=== PATIENT | female | born 1950 | race Hispanic/Latino ===

== ENCOUNTER 2017-09-02 22:08 | Observation (INO) | payer MEDICARE ==
[2017-09-02] MEDS ORDERED: ONDANSETRON HCL MDV 20ML 2 MG/ML VIAL ONE (22:32)
[2017-09-02 22:36] LABS: BASOPHILS % (AUTO) 0.2 % (0.0-5.0); HEMATOCRIT 42.3 % (36-48); LYMPHOCYTES % (AUTO) 4.6 % (21.0-51.0); MEAN CORPUSCULAR HGB CONC 34.3 g/dL (32.0-36.0); MEAN CORPUSCULAR VOLUME 81.6 fL (79-99); MONOCYTES % (AUTO) 5.6 % (3.0-13.0); NEUTROPHILS % (AUTO) 89.6 % (40.0-77.0); PLATELET COUNT (AUTO) 300 K/uL (130-400); RED BLOOD CELL COUNT(AUTO) 5.19 MIL/uL (4.00-5.50); RED CELL DISTRIBUTION WIDTH 13.7 % (11.0-15.5); WHITE BLOOD COUNT (AUTO) 18.5 K/uL (4.8-10.8)
[2017-09-02 22:45] LABS: CREATININE 0.9 mg/dL (0.5-1.5); POTASSIUM 3.6 mmol/L (3.5-5.1)
[2017-09-02 22:49] LABS: ALBUMIN 3.9 g/dL (3.5-5.0)
[2017-09-03] MEDS ORDERED: ZOSYN 3.375GM+NS 50ML 50 ML IV ONE ×2 (00:33→07:18)
[2017-09-03] MEDS ORDERED: LACTATED RINGERS 1000ML 1,000 ML IV ONE (05:54)
[2017-09-03 06:08] LABS: BASOPHILS % (AUTO) 0.3 % (0.0-5.0); EOSINOPHILS % (AUTO) 0.1 % (0.0-8.0); HEMATOCRIT 33.9 % (36-48); LYMPHOCYTES % (AUTO) 8.5 % (21.0-51.0); MEAN CORPUSCULAR HEMOGLOBIN 28.1 pg (27.0-33.0); MEAN CORPUSCULAR HGB CONC 33.7 g/dL (32.0-36.0); MEAN CORPUSCULAR VOLUME 83.4 fL (79-99); NEUTROPHILS % (AUTO) 85.1 % (40.0-77.0); PLATELET COUNT (AUTO) 259 K/uL (130-400); RED BLOOD CELL COUNT(AUTO) 4.06 MIL/uL (4.00-5.50); WHITE BLOOD COUNT (AUTO) 12.3 K/uL (4.8-10.8)
[2017-09-03 06:36] LABS: ALBUMIN 2.8 g/dL (3.5-5.0); BILIRUBIN,TOTAL 0.9 mg/dL (0.2-1.0); TOTAL PROTEIN, SERUM 6.7 g/dL (6.0-8.3)
[2017-09-03 08:58] LABS: APPEARANCE,URINE Clear (CLEAR); BILIRUBIN,URINE Negative (NEGATIVE); COLOR,URINE Yellow (YELLOW); GLUCOSE, URINE (UA) Negative (NEGATIVE); KETONES,URINE Trace mg/dL (NEGATIVE); LEUKOCYTE ESTERASE ,URINE Negative (NEGATIVE); NITRATE,URINE Negative (NEGATIVE); OCCULT BLOOD,URINE Negative (NEGATIVE); PROTEIN,URINE Trace (NEGATIVE)
[2017-09-03 09:27] LABS: BACTERIA,URINE Rare /HPF (None Seen); SQUAMOUS EPITHELIAL CELL,UR Rare /HPF (0-2); WBC,URINE 0-1 /HPF (0-1)
== END 2017-09-03 08:57 | disposition left against medical advice (07) ==
LOC: EDH 22:08 → EDHIP 09-03 01:28
PROVIDERS: ADMIT Surgery; ATTEND Surgery
DX: R10.31 Right lower quadrant pain (principal); R11.10 Vomiting, unspecified; K21.9 Gastro-esophageal reflux disease without esophagitis
CPT/HCPCS: 36415 ×2; 74176; 80053 ×2; 81001; 83690; 85025 ×2; 87040 ×2; 87186; 99285; G0378 ×7; J2543 ×2; J7120

== ENCOUNTER 2023-09-19 15:41 | Emergency (ER) | payer MEDICARE ==
[~2023-09-19] VITALS: Ht 157.5 cm; Wt 47.6 kg
[~2023-09-19 15:41] MED LIST: LEVO750T68 PO; LISI1TAB49 PO; NAPR500T6 PO; OMEP20CA12 PO
[2023-09-19 16:43] LABS: BASOPHILS # (AUTO) 0.03 K/uL (0.00-0.20); BASOPHILS % (AUTO) 0.6 % (0.0-5.0); EOSINOPHILS % (AUTO) 4.2 % (0.0-8.0); HEMATOCRIT 36.7 % (36-48); IMMATURE GRANULOCYTE ABSOLUTE 0.01 K/uL (0-1); LYMPHOCYTES # (AUTO) 1.2 K/uL (1.0-4.8); LYMPHOCYTES % (AUTO) 25.1 % (21.0-51.0); MEAN CORPUSCULAR HEMOGLOBIN 27.9 pg (27.0-33.0); MEAN CORPUSCULAR HGB CONC 33.2 g/dL (32.0-36.0); MEAN CORPUSCULAR VOLUME 83.8 fL (79-99); MONOCYTES # (AUTO) 0.4 K/uL (0.1-1.0); MONOCYTES % (AUTO) 7.9 % (3.0-13.0); NEUTROPHILS # (AUTO) 2.9 K/uL (1.8-7.7); PLATELET COUNT (AUTO) 278 K/uL (130-400); RED BLOOD CELL COUNT(AUTO) 4.38 MIL/uL (4.00-5.50); RED CELL DISTRIBUTION WIDTH 13.8 % (11.0-15.5); WHITE BLOOD COUNT (AUTO) 4.7 K/uL (4.8-10.8)
[2023-09-19 16:51] LABS: CREATININE 0.5 mg/dL (0.5-1.0); POTASSIUM 3.3 mmol/L (3.5-5.1)
[2023-09-19 16:54] LABS: INR 0.97 (0.85-1.15); PROTHROMBIN TIME 10.5 SEC (9.6-11.6)
[2023-09-19 16:55] LABS: PARTIAL THROMBOPLASTIN TIME 28.5 SEC (26.3-35.5)
[2023-09-19 17:51] VITALS: BP 152/87; PULSE 97; RESP 18; O2SAT 98
[2023-09-19] MEDS: POTASSIUM BICARB/CIT AC 25 MEQ TABLET.EFF PO ONE (17:58)
== END 2023-09-19 18:04 | disposition home or self-care (01) ==
LOC: EDH 15:41
DX: M79.661 Pain in right lower leg (principal); E87.6 Hypokalemia; E86.0 Dehydration; R22.41 Localized swelling, mass and lump, right lower limb; I10 Essential (primary) hypertension; Z79.2 Long term (current) use of antibiotics; Z79.899 Other long term (current) drug therapy
CPT/HCPCS: 36415; 80048; 85025; 85610; 85730; 93971

== ENCOUNTER 2024-08-24 19:49 | Inpatient (IN) | payer OTHER, MEDICARE ==
[~2024-08-24] VITALS: Ht 157.5 cm; Wt 39.0 kg
[~2024-08-24 19:49] MED LIST changes: +NAPR-1506 PO; -NAPR500T6 PO
--- NOTE | 2024-08-24 20:08 | ERN ---
ED Note History of Present Illness Stated Complaint: DIFFUSE ABDOMINAL PAIN Chief Complaint: Abdominal Pain Time Seen by MD: 19:51 Dictation: This is a 74-year-old female with known history of cerebral palsy and hypertension was brought into the emergency room with complaints of diffuse abdominal pain. Patient is nonverbal and is unable to furnish much history other than nodding at times. This also mild abdominal distention. During similar presentation in the past she had constipation with no bowel movement for many days. In view of the abdominal distention her p.o. intake is lower and off and on Nausea reported. No vomitings hematemesis or melena. No fever chills or rigors. No chest pain pressure. Temperature 97.2 pulse 94 respirations 18 blood pressure 100/64 with a pulse oximetry of 98% on room air Patient has a known history of cerebral palsy with significant craniofacial abnormalities and protruding teeth, hypertension and apparently at baseline she is bed ridden with limb contractures. Allergies: Coded Allergies: No Known Allergies (Unverified Allergy, Unknown, 07/20/21) Home Meds Active Scripts Levofloxacin (Levaquin 750Mg Tabs) 750 Mg Tablet, 750 MG PO DAILY for 7 Days, #7 TAB 0 Refills Prov:ROJAS,NATALIO O SUPPORT DIRECTOR 07/26/21 Reported Medications Naproxen (Naproxen) 500 Mg Tablet.dr, 500 MG PO DAILY, TAB 07/21/21 Omeprazole (Omeprazole) 20 Mg Capsule.dr, 20 MG PO DAILY, CAP 07/21/21 Lisinopril/Hydrochlorothiazide (Lisinopril-Hctz 10-12.5 mg Tab) 1 Each Tablet, 1 EACH PO DAILY, TAB 07/21/21 Past Medical History Past Medical History: GERD, Hypertension Additional Past Medical Hx: CEREBRAL PALSY Surgical History: None Social History: Negative, Lives with family History: Not Applicable RN Note Reviewed/Agreed w/PFSH: Yes Review of System Dictation Constitutional: Negative for fever,chills, and weight loss Eyes: Negative for injury, pain,redness, and discharge ENT: Negative for injury,pain or swelling Cardiovascular: Negative for chest pain, palpitations, and edema Respiratory: Negative for shortness of breath, cough, and wheezing, Abdomen/GI: Positive for diffuse abdominal pain, nausea,and constipation no report of vomiting, diarrhea, Back: Negative for injury and pain : Negative for injury, bleeding and discharge MS/Extremity: Negative for injury and deformity Skin: Negative for rash, and discoloration Neuro: Negative for headache, weakness, numbness, tingling, and seizure Psych: Negative for suicide ideation, homicidal ideation, and hallucinations Initial Vital Sign VS Vital Signs Date Time Temp Pulse Resp B/P (MAP) Pulse Ox O2 Delivery O2 Flow Rate FiO2 08/24/24 19:50 97.2 94 18 100/64 98 Room Air 0 08/24/24 20:18 21 Physical Exam Dictation General: awake, alert, NAD extremely emaciated, malnourished with a temporal wasting sunken eyes Head/Face: Craniofacial abnormalities with protruding upper jaw and teeth, atraumatic Eyes: PERRL, EOMI, vision at baseline ENT: oral cavity clear, TMs clear, no signs of infection Neck: Trachea midline, supple, no nuchal rigidity Cardiovascular: RRR, normal S1/S2, No MRGs, no JVD Respiratory: CTAB, no respiratory distress, No rales or wheezes Abdomen: Soft, mildly-distended, tender to palpation normal bowel sounds, no guarding or rebound. Skin: Warm, dry, normal turgor, no rash MS/Extremity: Pulses equal, no cyanosis, neurovascular intact, FROM Neuro: Alert awake nodding appropriately but nonverbal and there is no family to furnish much history. And what her baseline is Psych: Normal behavior, mood, and affect normal Extremities-trace edema without any palpable cords, Homans sign is negative Results (Laboratory/Radiology) Laboratory/Radiology Laboratory Tests Test 08/24/24 20:17 White Blood Count 7.1 K/uL (4.8-10.8) Red Blood Count 4.50 MIL/uL (4.00-5.50) Hemoglobin 12.8 g/dL (12.0-16.0) Hematocrit 38.6 % (36-48) Mean Corpuscular Volume 85.8 fL (79-99) Mean Corpuscular Hemoglobin 28.4 pg (27.0-33.0) Mean Corpuscular Hemoglobin Concent 33.2 g/dL (32.0-36.0) Red Cell Distribution Width 12.5 % (11.0-15.5) Platelet Count 284 K/uL (130-400) Mean Platelet Volume 8.7 fL (7.5-10.5) Immature Granulocyte % (Auto) 0.6 % (0-1) Neutrophils (%) (Auto) 83.0 % (40.0-77.0) H Lymphocytes (%) (Auto) 12.4 % (21.0-51.0) L Monocytes (%) (Auto) 3.0 % (3.0-13.0) Eosinophils (%) (Auto) 0.7 % (0.0-8.0) Basophils (%) (Auto) 0.3 % (0.0-5.0) Neutrophils # (Auto) 5.9 K/uL (1.8-7.7) Lymphocytes # (Auto) 0.9 K/uL (1.0-4.8) L Monocytes # (Auto) 0.2 K/uL (0.1-1.0) Eosinophils # (Auto) 0.05 K/uL (0.00-0.70) Basophils # (Auto) 0.02 K/uL (0.00-0.20) Absolute Immature Granulocyte (auto 0.04 K/uL (0-1) Nucleated Red Blood Cells 0.0 % (0.0-0.19) Sodium Level 129 mmol/L (136-145) L Potassium Level 3.4 mmol/L (3.5-5.1) L Chloride Level 94 mmol/L (101-111) L Carbon Dioxide Level 26 mmol/L (21-32) Blood Urea Nitrogen 23 mg/dL (7-18) H Creatinine 0.7 mg/dL (0.5-1.0) Glomerular Filtration Rate Calc 92 mL/min (>90) Random Glucose 176 mg/dL (70-105) H Total Calcium 8.9 mg/dL (8.5-10.1) Total Creatine Kinase 37 U/L (21-232) # Lipase 49 U/L (16-77) Labs Reviewed?: Yes CT Scan Comment: REASON: abdominal distension and pain ORDERING PHYSICIAN: ROSE ROPER MD PROCEDURE: ABD PEL WO - CT ABDOMEN/PELVIS W/O CONTRAST CT ABDOMEN/PELVIS W/O CONTRAST INDICATION: abdominal distension and pain TECHNIQUE: CT ABDOMEN/PELVIS W/O CONTRAST. Oral contrast was not given. Coronal and sagittal reformats were performed. CT was performed with one or more of the following dose reduction techniques: Automated exposure control, adjustment of the mA and/or kV according to the patient's size, or use of the iterative reconstruction technique. Comparison: None. FINDINGS: The noncontrast nature this study limits evaluation of abdominal viscera. Mild atelectatic changes are seen in the lung bases. There is mild hepatic steatosis. Small hypodense foci seen in the liver, incompletely characterized. Consider correlation with nonemergent ultrasound. Gallbladder is not well visualized. A spleen is not well visualized. There is no acute findings in the pancreas. No hydronephrosis. The urinary bladder is partially collapsed. Prominent fecal material in the rectum concerning for fecal impaction. Fluid-filled loops of small bowel and colon which may may represent enterocolitis versus early obstruction. No free abdominal air is seen. Appendix is not clearly visualized limiting evaluation. Correlate clinically. Atherosclerotic changes of the aorta with calcified plaques. Degenerative changes of the spine are seen. Grade 2 anterolisthesis at L4-L5. IMPRESSION: 1. Prominent fecal material in the rectum concerning for fecal impaction. 2. Distended, Fluid-filled loops of small bowel and colon which may may represent enterocolitis versus early obstruction. DICTATED BY: ESTEFANIA CONTRERAS MD DATE: 08/24/242106 ELECTRONICALLY SIGNED BY: ESTEFANIA CONTRERAS MD DATE: 08/24/242111 ED Course ED Course Orders Procedure Category Date Status Time Cbc With Differential LAB 08/24/24 Complete 19:52 Urinalysis Profile LAB 08/24/24 Logged 19:52 Creatine Kinase, Total LAB 08/24/24 Complete 19:52 Lipase LAB 08/24/24 Complete 19:52 Basic Metabolic Panel LAB 08/24/24 Complete 19:52 Ct Abdomen/Pelvis W/O CT 08/24/24 Resulted Contrast 20:06 0.9%Nacl 1000ml (Ns PHA 08/24/24 In Process 1000ml) 20:30 Morphine 2mg Syg PHA 08/24/24 Complete (Morphine 2mg Syg) 20:30 Current Medications Medications (Trade) Dose Ordered Sig/Ricardo Route PRN Reason Start Time Stop Time Status Last Admin Dose Admin Morphine Sulfate (morPHINE 2MG SYG) 2 mg ONCE ONCE IVP 08/24/24 20:30 08/24/24 20:31 DC 08/24/24 20:32 Sodium Chloride 1,000 ml @ 125 mls/hr ONCE ONCE IV 08/24/24 20:30 08/25/24 04:29 08/24/24 20:16 Vital Signs Date Time Temp Pulse Resp B/P (MAP) Pulse Ox O2 Delivery O2 Flow Rate FiO2 08/24/24 20:18 96 17 102/45 96 Room Air* 0 21 08/24/24 19:50 97.2 94 18 100/64 98 Room Air 0 We will perform diagnostic labs, advanced imaging and administer medications according to the patient's complaint. Once the results are available, will review and personally interpreted the labs to rule out any acute life- threatening emergency the trach require immediate intervention and treatment. I will then re-evaluate the patient after treatment and diagnostic exams have return to determine whether the patient requires any further testing, can safely be discharged home or need further admission to hospital for additional treatment and evaluation. I reviewed labs CBC is with a normal limits BNP 7 is significant for sodium of 129 chloride 94 BUN and creatinine are 23 and 0.7 with a potassium of 3.4 glucose 176. I reviewed the CT abdomen and pelvis which shows extensive gaseous distention of small and large bowel and increased fecal burden and fecal impaction likely in rectum. I recommended admission to the hospital for further management including perhaps trial of enema or digital manual disimpaction and repleted lights. 9:45 p.m. patient accepted by ODETTE Velez for admission to the hospitalist group for further management Medical Decision Making MDM MDM: Differential diagnosis: Constipation, SBO, diverticulitis, perforation, Shefali syndrome, impactions Rationale: Tests considered and ordered secondary to shared decision making include: labs, ECG and radiology Previous outside records reviewed: Old ER visits. Risk of complication and/or morbidity or mortality of patient management: None Medications-Per medication reconciliation Need for hospitalization: Patient does meet criteria for hospitalization. Need for emergency major/minor surgery: No There are no social concerns with this patient. Prescription drug management Prescriptions will include symptomatic care Patient's prior external medical records from other ER visits were reviewed by me as indicated. Prior testing and results from previous visits were reviewed. Prior tests were taken into account with medical decision making and resource utilization, independent historian/historians were used to obtain complete medical history. I independently interpreted the test that were performed, results were reviewed by me and considered findings on radiology if ordered. Medical management and examination interpretation discussions were had by me with other qualified healthcare professionals as indicated for the patient's care. Problem List Problem List: (1) Abdominal pain (2) Fecal impaction in rectum (3) Gaseous distention of intestine determined by X-ray (4) Dehydration (5) Constipation (6) Hypokalemia (7) Prerenal azotemia DX & DISP Disposition: Inpatient Decision to Admit Time: 21:40 Departure Impression: Primary Impression: Fecal impaction in rectum Additional Impressions: Abdominal pain, Gaseous distention of intestine determined by X-ray, Constipation, Dehydration, Hypokalemia, Prerenal azotemia Condition: Stable Additional Instructions: Patient was informed of all the diagnostic labs and procedures conducted in the emergency room today and demonstrated understanding of the results. I personally reviewed and interpreted all the diagnostic exams performed in the ER today. The patient will be admitted to the hospital for further treatment and evaluation. Disposition-admit to facility Condition-stable/guarded Course-uncertain at this time Pain status-decreased Assessment-exam unchanged Admission Certification- I certify that the patients status is appropriate and is based on my best clinical judgment and the patient's condition as documented in the medical records Referrals: ZABRINA ORELLANA DO (PCP) ROSE ROPER MD Aug 24, 2024 20:08
[2024-08-24] MEDS: 0.9%NACL 1000ML 1,000 ML IV ONE (20:16)
[2024-08-24 20:24] LABS: BASOPHILS # (AUTO) 0.02 K/uL (0.00-0.20); BASOPHILS % (AUTO) 0.3 % (0.0-5.0); EOSINOPHILS # (AUTO) 0.05 K/uL (0.00-0.70); EOSINOPHILS % (AUTO) 0.7 % (0.0-8.0); HEMATOCRIT 38.6 % (36-48); IMMATURE GRANULOCYTE ABSOLUTE 0.04 K/uL (0-1); LYMPHOCYTES # (AUTO) 0.9 K/uL (1.0-4.8); LYMPHOCYTES % (AUTO) 12.4 % (21.0-51.0); MEAN CORPUSCULAR HEMOGLOBIN 28.4 pg (27.0-33.0); MEAN CORPUSCULAR HGB CONC 33.2 g/dL (32.0-36.0); MEAN CORPUSCULAR VOLUME 85.8 fL (79-99); MONOCYTES # (AUTO) 0.2 K/uL (0.1-1.0); NEUTROPHILS # (AUTO) 5.9 K/uL (1.8-7.7); PLATELET COUNT (AUTO) 284 K/uL (130-400); RED CELL DISTRIBUTION WIDTH 12.5 % (11.0-15.5); WHITE BLOOD COUNT (AUTO) 7.1 K/uL (4.8-10.8)
[2024-08-24 20:31] LABS: CREATININE 0.7 mg/dL (0.5-1.0); POTASSIUM 3.4 mmol/L (3.5-5.1)
[2024-08-24] MEDS: morPHINE 2 MG SYG IVP ONE (20:32)
--- NOTE | 2024-08-24 21:12 | HMCIMG ---
CT ABDOMEN/PELVIS W/O CONTRAST INDICATION: abdominal distension and pain TECHNIQUE: CT ABDOMEN/PELVIS W/O CONTRAST. Oral contrast was not given. Coronal and sagittal reformats were performed. CT was performed with one or more of the following dose reduction techniques: Automated exposure control, adjustment of the mA and/or kV according to the patient's size, or use of the iterative reconstruction technique. Comparison: None. FINDINGS: The noncontrast nature this study limits evaluation of abdominal viscera. Mild atelectatic changes are seen in the lung bases. There is mild hepatic steatosis. Small hypodense foci seen in the liver, incompletely characterized. Consider correlation with nonemergent ultrasound. Gallbladder is not well visualized. A spleen is not well visualized. There is no acute findings in the pancreas. No hydronephrosis. The urinary bladder is partially collapsed. Prominent fecal material in the rectum concerning for fecal impaction. Fluid-filled loops of small bowel and colon which may may represent enterocolitis versus early obstruction. No free abdominal air is seen. Appendix is not clearly visualized limiting evaluation. Correlate clinically. Atherosclerotic changes of the aorta with calcified plaques. Degenerative changes of the spine are seen. Grade 2 anterolisthesis at L4-L5. IMPRESSION: 1. Prominent fecal material in the rectum concerning for fecal impaction. 2. Distended, Fluid-filled loops of small bowel and colon which may may represent enterocolitis versus early obstruction.
--- NOTE | 2024-08-24 21:49 | HP ---
[facility] HISTORY AND PHYSICAL Date of Service: Aug 24, 2024 Time of Service: 21:49 PCP: Francia Garcia Attending/supervising physicians: Dr. Burden and Dr. Longo HISTORY OF PRESENT ILLNESS: Ms. Saeed is a 74-year-old female with history of cerebral palsy, bed ridden with limb contractures, and hypertension was brought [place] [facility] [place] evaluation of diffuse abdominal pain. Patient is nonverbal and is unable to furnish much history other than nodding at times. The patient had a similar presentation in the past with constipation with no bowel movement for many days. No vomiting hematemesis or melena, fever chills or rigors, nor chest pain pressure. V/S on arrival: 97.2F, pulse 94 bpm, respirations 18bpm, blood pressure 100/64 with a pulse oximetry of 98% on room air. CT abdomen and pelvis without contrast: 1. Prominent fecal material in the rectum concerning for fecal impaction. 2. Distended, Fluid-filled loops of small bowel and colon which may represent enterocolitis versus early obstruction. WBCs WNL. Remarkable labs: Sodium 129, potassium 3.4, chloride 94, BUN 23, GFR 97, glucose 176. No UA collected in ED to review. ED request patient be admitted with the diagnosis of fecal impaction in rectum, abdominal pain, gaseous distention of the intestines determine by x-ray, constipation, dehydration, hypokalemia, prerenal azotemia. I assessed the patient at bedside in ED 12. The patient's breathing was even, unlabored, appeared comfortable, in no distress. The patient was smiling, is nonverbal, nods her head yes and no. The [id number] who is the care provider was present. She reports that at baseline the patient is nonverbal. Is able to nod yes or no appropriately. She reported that the patient nodded yes and grimaced when she touched her abdomen. The [id number] reported that the patient has not had decreased appetite. The patient has had a bowel movement daily. She states that this last time that she clean her she had hard stools. I informed them of labs, diagnostics, and plan of care. The care provider verbalized understanding and is in agreement with the plan. Plan and assessment are listed below. Addendum 08/25/2024 03:00 am: Followed up on patient. RN reports patient had a large BM after the Fleet enema. REVIEW OF SYSTEMS 12-unable to obtain ROS from patient due to patient's medical condition (Goode's palsy, nonverbal). PAST MEDICAL HISTORY: As mentioned above PAST SURGICAL HISTORY: None PAST SOCIAL HISTORY: No alcohol, tobacco, illicit drug use. Lives with family. FAMILY HISTORY: Noncontributory Coded Allergies: No Known Allergies (Unverified Allergy, Unknown, 07/20/21) PHYSICAL EXAM GENERAL APPEARANCE: The patient is awake, alert, and oriented, in no acute cardiopulmonary distress. NEUROLOGICAL: Cranial nerves II-XII grossly intact. Motor is 5/5 in bilateral upper and lower extremities proximal to distal. No sensory deficits. HEENT: Face is symmetric. Pupils are equal and reactive. Extraocular movements are intact. NECK: Supple. No JVD. No thyromegaly. No submental, submandibular, pre- /postauricular, occipital or supraclavicular lymphadenopathy. CHEST: Normal chest expansion. No Telemetry. LUNGS: Absence of any rales, rhonchi or any wheezing. CARDIOVASCULAR: Regular. S1 and S2 normal. No appreciable rubs, murmurs or gallops. ABDOMEN: Distended and tender. There is no rebound, voluntary guarding, or rigidity. : Deferred. No Khoury. EXTREMITIES: Non-edematous and not cyanotic. No clubbing. Good capillary refill. SKIN: No skin breakdown. Vital Sign (Last 24 Hours) 08/24/24 08/24/24 19:50 21:37 Temp 97.2 Pulse 96 Resp 16 B/P (MAP) 90/56 Pulse Ox 98 O2 Delivery Room Air* O2 Flow Rate 0 FiO2 21 LABS: Laboratory: Test 08/24/24 20:17 Range/Units White Blood Count 7.1 4.8-10.8 K/uL Red Blood Count 4.50 4.00-5.50 MIL/uL Hemoglobin 12.8 12.0-16.0 g/dL Hematocrit 38.6 36-48 % Mean Corpuscular Volume 85.8 79-99 fL Mean Corpuscular Hemoglobin 28.4 27.0-33.0 pg Mean Corpuscular Hemoglobin Concent 33.2 32.0-36.0 g/dL Red Cell Distribution Width 12.5 11.0-15.5 % Platelet Count 284 130-400 K/uL Mean Platelet Volume 8.7 7.5-10.5 fL Immature Granulocyte % (Auto) 0.6 0-1 % Neutrophils (%) (Auto) 83.0 H 40.0-77.0 % Lymphocytes (%) (Auto) 12.4 L 21.0-51.0 % Monocytes (%) (Auto) 3.0 3.0-13.0 % Eosinophils (%) (Auto) 0.7 0.0-8.0 % Basophils (%) (Auto) 0.3 0.0-5.0 % Neutrophils # (Auto) 5.9 1.8-7.7 K/uL Lymphocytes # (Auto) 0.9 L 1.0-4.8 K/uL Monocytes # (Auto) 0.2 0.1-1.0 K/uL Eosinophils # (Auto) 0.05 0.00-0.70 K/uL Basophils # (Auto) 0.02 0.00-0.20 K/uL Absolute Immature Granulocyte (auto 0.04 0-1 K/uL Nucleated Red Blood Cells 0.0 0.0-0.19 % Sodium Level 129 L 136-145 mmol/L Potassium Level 3.4 L 3.5-5.1 mmol/L Chloride Level 94 L 101-111 mmol/L Carbon Dioxide Level 26 21-32 mmol/L Blood Urea Nitrogen 23 H 7-18 mg/dL Creatinine 0.7 0.5-1.0 mg/dL Glomerular Filtration Rate Calc 92 >90 mL/min Random Glucose 176 H 70-105 mg/dL Total Calcium 8.9 8.5-10.1 mg/dL Total Creatine Kinase 37 # 21-232 U/L Lipase 49 16-77 U/L DIAGNOSTICS / RADIOLOGY: [ ] ASSESSMENT: Acute abdominal pain, POA Distended, Fluid-filled loops of small bowel and colon, enterocolitis vs early obstruction Constipation with fecal impaction, POA Electrolyte derangement (Hyponatremia, hypokalemia, hypochloremia) Acute dehydration Hyperglycemia Prerenal azotemia Chronic problem list: cerebral palsy, nonverbal, arm contractures, and hypertension PLAN: -Admit to medical floor with continuous telemetry monitoring. -Consult general surgeon for evaluation of possible early obstruction. Follow surgeon's recommendation. -NPO for now except for meds. -IV hydration with LR 75 mL an hour. -Obtain UA and sent to lab. -Fleet enema x1 dose now, then glycerin followed by Fleet enema daily x3 doses. -Start lactulose p.o. in am X3 doses. -KUB in a.m. -p.r.n. medications for: Pain management, constipation, hypertension, nausea, vomiting, fever. -Oxygen supplement as needed to maintain oxygen levels equal to or greater than 92% -Blood pressure checks every 4 hours and as needed. -Reconcile home medications once available. -Glucometer checks before meals and at bedtime with insulin regular sliding scale. -AM labs. -Monitor renal and liver function. -Monitor electrolytes and treat accordingly. -Turn every 2 hours. -DVT and GI prophylaxis: SCDs and Protonix. ADVANCED CARE PLANNING 1. Which of the following were discussed? Hospice Care - No Therapeutic options - Yes Advance Directives - Yes Other discussions - 2. Discussed with who? Patient 3. Voluntary nature of this service was explained to the patient? Yes 4. Amount of time spent - __ Over 35 minutes 5. Reviewed by Physician? (if this service was performed by JEM) Yes ATTESTATION BY PHYSICIAN I have seen and examined the patient. I reviewed the documentation, medical decision making, and treatment plan as noted by the mid-level provider above. I agree with the findings and plan of care. [facility] Aug 24, 2024 21:49
[2024-08-24] MEDS ORDERED: POTASSIUM CHLORIDE IV SCH (22:00)
[2024-08-24] MEDS ORDERED: ondanSETRON 4MG INJ IVP PRN (22:00)
[2024-08-24] MEDS ORDERED: acetaMINOPHEN 325 MG TAB PO PRN (22:00)
[2024-08-24] MEDS ORDERED: LAbetaLOL 20MG SYG IV PRN (22:00)
[2024-08-24] MEDS ORDERED: PoTASSium chloRIDE 10MEQ/100ML 100 ML IV PRN (22:00)
[2024-08-24] MEDS ORDERED: [UNRECOGNIZED DRUG - OTHER] IV SCH (22:00)
[2024-08-24] MEDS ORDERED: acetaMINOPHEN 650 MG SUPPOSITORY RC PRN (22:00)
[2024-08-24] MEDS ORDERED: GLUCAGON 1MG KIT 1 MG ML IM PRN (22:00)
[2024-08-24] MEDS ORDERED: doCUSate SODIUM 100 MG CAP PO PRN (22:00)
[2024-08-24] MEDS ORDERED: DOCU-116 PO (22:07)
[2024-08-24] MEDS ORDERED: NAPR-1194 PO (22:07)
[2024-08-24] MEDS ORDERED: LISI5TAB21 PO (22:07)
[2024-08-24] MEDS ORDERED: OMEP20CA12 PO (22:07)
[2024-08-24] MEDS ORDERED: FERR325T29 PO (22:07)
[2024-08-24] MEDS ORDERED: HYDR12.54 PO (22:07)
[2024-08-24] MEDS: LACTATED RINGERS 1000ML 1,000 ML IV SCH (22:10)
[2024-08-24] MEDS: PoTASSium chloRIDE 20MEQ/100ML 100 ML IV PRN (22:10)
[2024-08-24 23:15] VITALS: BP 112/71; PULSE 81; RESP 20; TEMP 97.6
--- NOTE | 2024-08-24 23:30 | NUR ---
FLEET ENEMA GIVEN AT THIS TIME PT TOLERATED WELL, WILL CONT TO MONITOR
[2024-08-25] VITALS (7 sets, daily range): BP systolic 92–117; BP diastolic 54–64; PULSE 84–110; RESP 18–20; TEMP 97.6–98.3; O2SAT 93–98
--- NOTE | 2024-08-25 01:30 | NUR ---
ONE LARGE BM POST ENEMA AT THIS TIME, NO DISTRESS NOTED , WILL CONT TO MONITOR
[2024-08-25] MEDS: TEMAZepam 15 MG CAPSULE PO PRN (01:41)
[2024-08-25] MEDS ORDERED: PERMETHRIN CREAM 5% 60GM TUBE TP SCH (04:00)
[2024-08-25 04:04] LABS: APPEARANCE,URINE CLOUDY (CLEAR); BILIRUBIN,URINE NEGATIVE (NEGATIVE); COLOR,URINE YELLOW (YELLOW); GLUCOSE, URINE (UA) NEGATIVE (NEGATIVE); KETONES,URINE NEGATIVE (NEGATIVE); LEUKOCYTE ESTERASE ,URINE 25 Leu/uL (NEGATIVE); NITRATE,URINE NEGATIVE (NEGATIVE); PH,URINE 5.5 (5.0-8.0); PROTEIN,URINE NEGATIVE (NEGATIVE); UROBILINOGEN,URINE 0.2 mg/dL (0.2-1.0)
[2024-08-25 04:05] LABS: ADD UA MICROSCOPIC YES
[2024-08-25 04:09] LABS: BACTERIA,URINE Moderate /HPF (None Seen); MUCUS,URINE Rare LPF (None Seen); RBC,URINE 0-1 /HPF (0-1); SQUAMOUS EPITHELIAL CELL,UR Rare /HPF (0-2)
[2024-08-25 04:25] LABS: HEMOGLOBIN A1C 5.9 % (4.0-6.0)
[2024-08-25 04:47] LABS: ALBUMIN 2.9 g/dL (3.5-5.0); BILIRUBIN,TOTAL 0.3 mg/dL (0.2-1.0); CREATININE 0.3 mg/dL (0.5-1.0); MAGNESIUM 1.8 mg/dL (1.80-2.40); PHOSPHORUS 3.4 mg/dL (2.5-4.9); POTASSIUM 4.1 mmol/L (3.5-5.1); THYROID STIMULATING HORMONE 1.97 uIU/mL (0.36-3.74); TOTAL PROTEIN, SERUM 5.6 g/dL (6.0-8.3)
--- NOTE | 2024-08-25 05:00 | NUR ---
PERMETHRIN CREAM APPLIED TO BE ON FOR 14 HOURS, UNTIL 08/25/24 @ 1900
[2024-08-25] MEDS: PERMETHRIN CREAM 5% 60GM TUBE TP ONE (05:06)
[2024-08-25] MEDS: INSULIN humuLIN R 100 UNIT/ML 3ML SQ SCH (06:30)
[2024-08-25] MEDS: GLYCERIN ADULT SUPP.RECT RC SCH (08:00)
[2024-08-25] MEDS: LACTULOSE 20 GM/30 ML UDCUP PO SCH (08:20)
[2024-08-25] MEDS: PANTOPrazole 40 MG/VIAL IVP SCH (08:20)
--- NOTE | 2024-08-25 10:54 | PN ---
[facility] PROGRESS NOTE Date of Service: Aug 25, 2024 Time of Service: 10:46 SUBJECTIVE: [ ] admission date: 08/24/24 PCP: Everardo Garcia MD Ms. Saeed is a 74-year-old female with history of cerebral palsy, bed ridden with limb contractures, and hypertension was brought to [facility] [place] [facility] ED for evaluation of diffuse abdominal pain. Patient is nonverbal and is unable to furnish much history other than nodding at times. The patient had a similar presentation in the past with constipation with no bowel movement for many days. No vomiting hematemesis or melena, fever chills or rigors, nor chest pain pressure. 08/25/24 patient is seen and examined patient appears chronically ill. No family members at bedside. She is currently NPO receiving IV hydration we continue wit h bowel regiment. primary nurse report 2 large BM overnight. no moaning: nonverbal KUB is pending. REVIEW OF SYSTEMS 12-unable to obtain ROS from patient due to patient's medical condition (Goode's palsy, nonverbal). PHYSICAL EXAM GENERAL APPEARANCE: The patient is awake, alert, and oriented, in no acute cardiopulmonary distress. NEUROLOGICAL: Cranial nerves II-XII grossly intact. Motor is 5/5 in bilateral upper and lower extremities proximal to distal. No sensory deficits. HEENT: Face is symmetric. Pupils are equal and reactive. Extraocular movements are intact. NECK: Supple. No JVD. No thyromegaly. No submental, submandibular, pre- /postauricular, occipital or supraclavicular lymphadenopathy. CHEST: Normal chest expansion. No Telemetry. LUNGS: Absence of any rales, rhonchi or any wheezing. CARDIOVASCULAR: Regular. S1 and S2 normal. No appreciable rubs, murmurs or gallops. ABDOMEN: Distended and tender. There is no rebound, voluntary guarding, or rigidity. : Deferred. No Khoury. EXTREMITIES: Non-edematous and not cyanotic. No clubbing. Good capillary refill. SKIN: No skin breakdown. Vital Signs (last 8hr) Date Time Temp Pulse Resp B/P (MAP) Pulse Ox O2 Delivery O2 Flow Rate FiO2 08/25/24 08:00 97.5 110 18 100/56 98 Room Air 08/25/24 04:00 98.1 84 20 92/54 92 Room Air LABS: Laboratory: Test 08/25/24 05:32 08/25/24 04:05 08/25/24 03:40 08/24/24 20:17 Range/Units Whole Blood Glucose 128 H 70-110 MG/DL Sodium Level 127 L 136-145 mmol/L Potassium Level 4.1 3.5-5.1 mmol/L Chloride Level 95 L 101-111 mmol/L Carbon Dioxide Level 24 21-32 mmol/L Blood Urea Nitrogen 23 H 7-18 mg/dL Creatinine 0.3 L 0.5-1.0 mg/dL Glomerular Filtration Rate Calc 113 >90 mL/min Random Glucose 116 H 70-105 mg/dL Hemoglobin A1c 5.9 4.0-6.0 % Estimated Average Glucose (eAG) 123 70-126 mg/dL Total Calcium 8.3 L 8.5-10.1 mg/dL Phosphorus Level 3.4 2.5-4.9 mg/dL Magnesium Level 1.80 1.80-2.40 mg/dL Total Bilirubin 0.3 0.2-1.0 mg/dL Aspartate Amino Transf (AST/SGOT) 20 10-37 U/L Alanine Aminotransferase (ALT/SGPT) 17 12-78 U/L Alkaline Phosphatase 79 50-136 U/L Total Protein 5.6 L 6.0-8.3 g/dL Albumin 2.9 L 3.5-5.0 g/dL Thyroid Stimulating Hormone (TSH) 1.97 0.36-3.74 uIU/mL Urine Color YELLOW YELLOW Urine Appearance CLOUDY H CLEAR Urine pH 5.5 5.0-8.0 Urine Specific Valdez 1.017 1.001-1.031 Urine Protein NEGATIVE NEGATIVE mg/dL Urine Glucose (UA) NEGATIVE NEGATIVE mg/dL Urine Ketones NEGATIVE NEGATIVE mg/dL Urine Occult Blood +- (TRACE) H NEGATIVE Urine Nitrate NEGATIVE NEGATIVE Urine Bilirubin NEGATIVE NEGATIVE mg/dL Urine Urobilinogen 0.2 0.2-1.0 mg/dL Urine Leukocyte Esterase 25 H NEGATIVE Bhupendra/uL Urine RBC 0-1 0-1 /HPF Urine WBC 2-5 H 0-1 /HPF Urine Squamous Epithelial Cells Rare 0-2 /HPF Urine Bacteria Moderate H None Seen /HPF Urine Hyaline Casts 2-5 H 0-1 /LPF /LPF White Blood Count 7.1 4.8-10.8 K/uL Red Blood Count 4.50 4.00-5.50 MIL/uL Hemoglobin 12.8 12.0-16.0 g/dL Hematocrit 38.6 36-48 % Mean Corpuscular Volume 85.8 79-99 fL Mean Corpuscular Hemoglobin 28.4 27.0-33.0 pg Mean Corpuscular Hemoglobin Concent 33.2 32.0-36.0 g/dL Red Cell Distribution Width 12.5 11.0-15.5 % Platelet Count 284 130-400 K/uL Mean Platelet Volume 8.7 7.5-10.5 fL Immature Granulocyte % (Auto) 0.6 0-1 % Neutrophils (%) (Auto) 83.0 H 40.0-77.0 % Lymphocytes (%) (Auto) 12.4 L 21.0-51.0 % Monocytes (%) (Auto) 3.0 3.0-13.0 % Eosinophils (%) (Auto) 0.7 0.0-8.0 % Basophils (%) (Auto) 0.3 0.0-5.0 % Neutrophils # (Auto) 5.9 1.8-7.7 K/uL Lymphocytes # (Auto) 0.9 L 1.0-4.8 K/uL Monocytes # (Auto) 0.2 0.1-1.0 K/uL Eosinophils # (Auto) 0.05 0.00-0.70 K/uL Basophils # (Auto) 0.02 0.00-0.20 K/uL Absolute Immature Granulocyte (auto 0.04 0-1 K/uL Nucleated Red Blood Cells 0.0 0.0-0.19 % Total Creatine Kinase 37 # 21-232 U/L Lipase 49 16-77 U/L Current Medications Medications (Trade) Dose Ordered Sig/Ricardo Route PRN Reason Start Time Stop Time Status Last Admin Dose Admin Acetaminophen (TYLenol 325MG TAB) 650 mg Q6H PRN PO FEVER/MILD PAIN LEVEL 1-3 08/24/24 22:00 09/23/24 21:59 Acetaminophen (TYLenol 650MG SUPPOSITORY) 650 mg Q6H PRN RC FEVER / MILD PAIN 1-3 IF NPO 08/24/24 22:00 09/23/24 21:59 Dextrose (D50w) 50 ml AD PRN IV HYPOGLYCEMIA PROTOCOL 08/24/24 22:00 09/23/24 21:59 Docusate Sodium (COLace 100MG CAP) 100 mg BID PRN PO c 08/24/24 22:00 09/23/24 21:59 Glucagon (Glucagon 1mg Kit) 1 mg AD PRN IM HYPOGLYCEMIA PROTOCOL 08/24/24 22:00 09/23/24 21:59 Glycerin (Glycerin Adult Supp) 1 supp DAILY08 RC 08/25/24 08:00 08/27/24 21:59 Glycerin (Glycerin Adult Supp) 1 supp Q24H RC 08/25/24 22:00 08/25/24 02:47 DC Insulin Human Regular (humuLIN R 100 UNIT/ML 3ML) INSULIN SLIDING SCAL... ACHS SQ 08/25/24 07:30 09/24/24 07:29 Labetalol HCl (TRANdate 20MG SYG) 10 mg Q2H PRN IV SBP GREATER THAN 180 08/24/24 22:00 09/23/24 21:59 Lactated Ringer's 1,000 ml @ 75 mls/hr [id number] IV 08/24/24 22:00 09/23/24 21:59 08/24/24 22:10 75 MLS/HR Lactulose (Constulose 20gm/ 30ml Udcup) 20 gm BID PO 08/25/24 09:00 08/26/24 12:00 08/25/24 08:20 20 GM Lactulose (Constulose 20gm/ 30ml Udcup) 20 gm Q6H PRN PO CONSTIPATION 08/24/24 22:00 09/23/24 21:59 Magnesium Sulfate 50 ml @ 0 mls/hr PROTOCOL PRN IV MAGNESIUM PROTOCOL 08/24/24 22:00 09/23/24 21:59 Ondansetron HCl (zoFRAN 4MG INJ) 4 mg Q6H PRN IVP NAUSEA/VOMITING 08/24/24 22:00 09/23/24 21:59 Pantoprazole Sodium (PROTonix 40MG INJ) 40 mg BID IVP 08/25/24 09:00 09/24/24 08:59 08/25/24 08:20 40 MG Permethrin (Elimite Cream 5%) 1 gm AD TP 08/25/24 04:00 08/25/24 04:04 DC Potassium Chloride 10 meq/ Sodium Chloride 50 ml @ 50 mls/hr PROTOCOL IV 08/24/24 22:00 08/24/24 21:58 DC Potassium Chloride 100 ml @ 50 mls/hr AD PRN IV POTASSIUM PROTOCOL 08/24/24 22:00 09/23/24 21:59 08/24/24 22:10 50 MLS/HR Potassium Chloride 100 ml @ 100 mls/hr AD PRN IV POTASSIUM PROTOCOL 08/24/24 22:00 08/24/24 21:58 DC Temazepam (restORIL 15 MG CAP) 15 mg HS PRN PO INSOMNIA/SLEEP 08/24/24 22:00 09/23/24 21:59 08/25/24 01:41 15 MG DIAGNOSTICS / RADIOLOGY: [ ] ASSESSMENT: Acute abdominal pain, POA Distended, Fluid-filled loops of small bowel and colon, enterocolitis vs early obstruction Constipation with fecal impaction, POA Electrolyte derangement (Hyponatremia, hypokalemia, hypochloremia) Acute dehydration Hyperglycemia Prerenal azotemia UTI Chronic problem list: cerebral palsy, nonverbal, arm contractures, and hypertension PLAN: -Admit to medical floor with continuous telemetry monitoring. -Consult general surgeon for evaluation of possible early obstruction. Follow surgeon's recommendation. -NPO for now except for meds. -IV hydration with LR 75 mL an hour. abt's; Rochephin 1 gm IV daily - will continue with bowel regiment: KUB pending -Oxygen supplement as needed to maintain oxygen levels equal to or greater than 92% blood pressure monitoring resumed home blood pressure medications -Reconciled home medications -Glucometer checks before meals and at bedtime with insulin regular sliding scale. -AM labs. -Monitor electrolytes and treat accordingly. - decubitus precaution Turn every 2 hours. -DVT and GI prophylaxis: SCDs and Protonix. ATTESTATION BY PHYSICIAN I have seen and examined the patient. I reviewed the documentation, medical decision making, and treatment plan as noted by the mid-level provider above. I agree with the findings and plan of care. Marla Porter MD, ELIZABETH NP Aug 25, 2024 10:53
[2024-08-25] MEDS: cefTRIAXone 1G VIAL IVPB SCH (13:30)
--- NOTE | 2024-08-25 15:42 | CONS ---
CONSULT NOTE: Consulting physician: Dr Burden Consulting service: General surgery Reason for consultation: Small-bowel obstruction History of present illness: This is a 74-year-old female with a history of cerebral palsy bed ridden and contracted that has been consulted to surgery for concerns of abdominal pain. Patient is nonverbal unable to provide HPI. Since admission patient has had multiple bowel movements. Initial imaging concerning for enteritis versus obstruction. On physical exam no abdominal pain reported but recent soapsuds enema has been administered in patient with bowel movement that to be cleaned out. WBCs unremarkable vitals stable. Patient currently NPO Medical history: See HPI Surgical history: Unable to determine Review of systems: Unable to obtain Physical exam: GENERAL APPEARANCE: The patient is awake, alert, and oriented, in no acute cardiopulmonary distress. NEUROLOGICAL: Cranial nerves II-XII grossly intact. Motor is 5/5 in bilateral upper and lower extremities proximal to distal. No sensory deficits. HEENT: Face is symmetric. Pupils are equal and reactive. Extraocular movements are intact. NECK: Supple. No JVD. No thyromegaly. No submental, submandibular, pre- /postauricular, occipital or supraclavicular lymphadenopathy. CHEST: Normal chest expansion. No Telemetry. LUNGS: Absence of any rales, rhonchi or any wheezing. CARDIOVASCULAR: Regular. S1 and S2 normal. No appreciable rubs, murmurs or gallops. ABDOMEN: Distended and tender. There is no rebound, voluntary guarding, or rigidity. : Deferred. No Khoury. EXTREMITIES: Non-edematous and not cyanotic. No clubbing. Good capillary refill. SKIN: No skin breakdown. Assessment: This is a 72-year-old female with resolving abdominal pain with resolving potential obstruction Plan: Patient to be allowed diet No surgical intervention at this time Continue with current medical management Dr. Lynch to be updated in patient's status and surgical team to follow patient closely IRENA EVANS Jr. Aug 25, 2024 15:42
--- NOTE | 2024-08-25 16:00 | NUR ---
DCP: [facility] spoke with thomas George [phone] to gather information. Pt currently lives with thomas in her home. pt does not have insecuritis with food, assisted, and/or utilities. Pt uses a wheelchair to move around in her home. Thomas is her provider and works 4.5 hrs with her daily via [employer] and also recieves 2 hrs respite care daily. PCP is Dr. Tiki Barahona and uses [facility] for any RX needs. At [place] pt will return home however thomas voiced concerns with transportation and worries about getting her into the car. Addendum: 08/25/24 at 1604 by AMBER ACUÑA SS Amended: Links added.
[2024-08-25] MEDS: MAGNESIUM 2GM PREMIX 50ML 50 ML IV PRN (20:02)
[2024-08-25] MEDS ORDERED: GLYCERIN ADULT SUPP.RECT RC SCH (22:00)
[2024-08-26] VITALS (7 sets, daily range): BP systolic 104–131; BP diastolic 60–77; PULSE 84–99; RESP 16–18; TEMP 96.8–98.2; O2SAT 95–100
[2024-08-26 05:25] LABS: BASOPHILS # (AUTO) 0.03 K/uL (0.00-0.20); EOSINOPHILS # (AUTO) 0.17 K/uL (0.00-0.70); EOSINOPHILS % (AUTO) 5.7 % (0.0-8.0); HEMATOCRIT 34.4 % (36-48); IMMATURE GRANULOCYTE ABSOLUTE 0.01 K/uL (0-1); LYMPHOCYTES % (AUTO) 35.1 % (21.0-51.0); MEAN CORPUSCULAR HEMOGLOBIN 28.5 pg (27.0-33.0); MEAN CORPUSCULAR VOLUME 83.7 fL (79-99); MONOCYTES # (AUTO) 0.3 K/uL (0.1-1.0); MONOCYTES % (AUTO) 9.8 % (3.0-13.0); NEUTROPHILS # (AUTO) 1.4 K/uL (1.8-7.7); NEUTROPHILS % (AUTO) 48.1 % (40.0-77.0); PLATELET COUNT (AUTO) 241 K/uL (130-400); RED BLOOD CELL COUNT(AUTO) 4.11 MIL/uL (4.00-5.50); RED CELL DISTRIBUTION WIDTH 12.7 % (11.0-15.5)
[2024-08-26 05:36] LABS: ALBUMIN 2.7 g/dL (3.5-5.0); BILIRUBIN,TOTAL 0.4 mg/dL (0.2-1.0); CREATININE 0.4 mg/dL (0.5-1.0); MAGNESIUM 2.4 mg/dL (1.80-2.40); POTASSIUM 3.3 mmol/L (3.5-5.1); TOTAL PROTEIN, SERUM 5.1 g/dL (6.0-8.3)
[2024-08-26 05:59] LABS: EOSINOPHILS % (MANUAL) 4 % (1-6); LYMPHOCYTES % (MANUAL) 32 % (22-44); MAN.DIFF COMMENT-IMPRESSION MANUAL DIFFERENTIAL; MONOCYTES % (MANUAL) 7 % (2-9); REACTIVE LYMPHOCYTES 8 % (0-0); SEGMENTED NEUTROPHILS % 49 % (40-70); TOTAL CELLS COUNTED 100
[2024-08-26 06:00] LABS: PLATELET MORPHOLOGY COMMENT ADEQUATE
[2024-08-26] MEDS: PoTASSium chloRIDE 20MEQ ER 20 MEQ ERTAB PO ONE ×2 (09:00→19:08)
[2024-08-26] MEDS: LISINOPRIL 5 MG TABLET PO SCH (10:17)
[2024-08-26] MEDS: FERROUS SULFATE 325 MG TABLET.DR PO SCH (10:17)
[2024-08-26] MEDS: hydroCHLOROthiazide 25 MG TABLET PO SCH (10:17)
--- NOTE | 2024-08-26 12:34 | NUR ---
Nutritional Note: Chart, meds, and labs Reviewed. Patient is nonverbal unable to provide HPI. Pt with hard stools and poor appetite prior to admission. Recommend: -Soft/puree diet advancement as tolerated consider Nutritional supplements Twocal w/ trays - Electrolyte replacements per protocol -Nephrovite MVI combination of B vitamins may be used to treat or prevent vitamin deficiency due to poor diet. -Magic Cup 4oz w/ PM tray: Provides 9gm pro/ 290kcal and 20 vitamins and minerals. [place] to serve with meals as a means of adding calories and protein for unintended weight loss. -ProStat BID (30 ml) JELLO -Consider nutrition support if oral intake inadequate and prolonged. -Monitor feeding tolerance, %, wt, and labs -Document PO intake and wt daily. -If No BM >3days consider bowel stimulant. -Schedule outpatient RD f/u for long-term nutrition care. - Notify RD if additional nutrition concerns arise. SEE RD Nutritional Assessment for additional assessment information. Addendum: 08/26/24 at [address] Amended: Links added.
--- NOTE | 2024-08-26 15:01 | PN ---
This is a 74-year-old female with cerebral palsy and resolving small bowel obstruction Interval history: This 74-year-old female seen in her room No abdominal pain reported Nursing reporting bowel movements Given patient's mental status difficult to obtain update Physical exam General: Awake alert and oriented Heart: Regular rate and rhythm} Lungs: Clear to auscultation no distress Abdomen: [Soft, nontender, nondistended Assessment : This is a 74-year-old female with what appears to be resolving obstruction Plan: No surgical intervention at this time Patient to be allowed diet and advance as tolerated Dr. Leija to be updated in patient's status and surgical team to follow patient closely Vitals/Labs Vital Signs Date Time Temp Pulse Resp B/P (MAP) Pulse Ox O2 Delivery O2 Flow Rate FiO2 08/26/24 08:00 97.5 84 18 131/77 100 Room Air 08/26/24 08:00 0 21 Laboratory Tests 08/26/24 04:53 Medications Current Medications Sodium Chloride 1,000 ml @ 125 mls/hr ONCE ONCE IV Last administered on 08/24/24at 20:16; Start 08/24/24 at 20:30; Stop 08/25/24 at 03:09; Status DC Morphine Sulfate 2 mg ONCE ONCE IVP Last administered on 08/24/24at 20:32; Start 08/24/24 at 20:30; Stop 08/24/24 at 20:31; Status DC Potassium Chloride 10 meq/ Sodium Chloride 50 ml @ 50 mls/hr PROTOCOL IV; Start 08/24/24 at 22:00; Stop 08/24/24 at 21:58; Status DC Lactated Ringer's 1,000 ml @ 75 mls/hr [id number] IV Last administered on 08/26/24at 08:00; Start 08/24/24 at 22:00; Stop 09/23/24 at 21:59 Acetaminophen 650 mg Q6H PRN PO; Start 08/24/24 at 22:00; Stop 09/23/24 at 21:59 Acetaminophen 650 mg Q6H PRN RC; Start 08/24/24 at 22:00; Stop 09/23/24 at 21:59 Lactulose 20 gm Q6H PRN PO; Start 08/24/24 at 22:00; Stop 09/23/24 at 21:59 Docusate Sodium 100 mg BID PRN PO; Start 08/24/24 at 22:00; Stop 09/23/24 at 21:59 Temazepam 15 mg HS PRN PO Last administered on 08/25/24at 01:41; Start 08/24/24 at 22:00; Stop 09/23/24 at 21:59 Ondansetron HCl 4 mg Q6H PRN IVP; Start 08/24/24 at 22:00; Stop 09/23/24 at 21:59 Labetalol HCl 10 mg Q2H PRN IV; Start 08/24/24 at 22:00; Stop 09/23/24 at 21:59 Insulin Human Regular INSULIN SLIDING SCAL... ACHS SQ; Start 08/25/24 at 07:30; Stop 09/24/24 at 07:29 Potassium Chloride 100 ml @ 100 mls/hr AD PRN IV; Start 08/24/24 at 22:00; Stop 08/24/24 at 21:58; Status DC Dextrose 50 ml AD PRN IV; Start 08/24/24 at 22:00; Stop 09/23/24 at 21:59 Glucagon 1 mg AD PRN IM; Start 08/24/24 at 22:00; Stop 09/23/24 at 21:59 Magnesium Sulfate 50 ml @ 0 mls/hr PROTOCOL PRN IV Last administered on 08/25/24at 20:02; Start 08/24/24 at 22:00; Stop 09/23/24 at 21:59 Potassium Chloride 100 ml @ 50 mls/hr AD PRN IV Last administered on 08/24/24at 22:10; Start 08/24/24 at 22:00; Stop 09/23/24 at 21:59 Glycerin 1 supp Q24H RC; Start 08/25/24 at 22:00; Stop 08/25/24 at 02:47; Status DC Glycerin 1 supp DAILY08 RC Last administered on 08/26/24at 08:00; Start 08/25/24 at 08:00; Stop 08/27/24 at 21:59 Lactulose 20 gm BID PO Last administered on 08/26/24at 10:18; Start 08/25/24 at 09:00; Stop 08/26/24 at 12:00; Status DC Pantoprazole Sodium 40 mg BID IVP Last administered on 08/26/24at 10:17; Start 08/25/24 at 09:00; Stop 09/24/24 at 08:59 Permethrin 1 gm AD TP; Start 08/25/24 at 04:00; Stop 08/25/24 at 04:04; Status DC Permethrin 1 gm ONCE ONCE TP Last administered on 08/25/24at 05:06; Start 08/25/24 at 04:30; Stop 08/25/24 at 04:31; Status DC Lisinopril 5 mg DAILY PO Last administered on 08/26/24at 10:17; Start 08/26/24 at 09:00; Stop 09/25/24 at 08:59 Ferrous Sulfate 325 mg DAILY PO Last administered on 08/26/24at 10:17; Start 08/26/24 at 09:00; Stop 09/25/24 at 08:59 Hydrochlorothiazide 12.5 mg DAILY PO Last administered on 08/26/24at 10:17; Start 08/26/24 at 09:00; Stop 09/25/24 at 08:59 Ceftriaxone Sodium 1 gm Q24H IVPB Last administered on 08/25/24at 13:30; Start 08/25/24 at 13:30; Stop 09/04/24 at 13:29 Potassium Chloride 40 meq ONCE ONCE PO; Start 08/26/24 at 09:00; Stop 08/26/24 at 09:01; Status DC Potassium Chloride 20 meq ONCE ONCE PO; Start 08/26/24 at 16:00; Stop 08/26/24 at 16:01 IRENA EVANS Jr. Aug 26, 2024 15:01
--- NOTE | 2024-08-26 15:27 | PN ---
[facility] PROGRESS NOTE Date of Service: Aug 26, 2024 Time of Service: 15:24 Attending doctor Bertram SUBJECTIVE: [ ] admission date: 08/24/24 PCP: Everardo Garcia MD Ms. Saeed is a 74-year-old female with history of cerebral palsy, bed ridden with limb contractures, and hypertension was brought to [facility] for evaluation of diffuse abdominal pain. Patient is nonverbal and is unable to furnish much history other than nodding at times. The patient had a similar presentation in the past with constipation with no bowel movement for many days. No vomiting hematemesis or melena, fever chills or rigors, nor chest pain pressure. 08/25/24 patient is seen and examined patient appears chronically ill. No family members at bedside. She is currently NPO receiving IV hydration we continue with bowel regiment. primary nurse report 2 large BM overnight. no moaning: nonverbal KUB is pending. 08/26/24 patient was seen by nurse practitioner and physician during rounding in room 410. CT abdomen/pelvis showed fecal material rectum concerning for fecal impaction. Enterocolitis versus early obstruction. UA was positive for leukocytosis. Urine culture pending. Patient continues to be on a clear liquid diet and already had three bowel movements in the past 24 hours. As per surgery no intervention at this moment. Allow diet and advance as tolerate. Patient receive two doses of 40 mEq of potassium for potassium 3.3. We will continue to monitor patient in the meantime. A.m. labs. 08/27/24 patient was seen by nurse practitioner physician during rounding in room 410. Repeated KUB showed severe constipation. At this moment we will consult GI for further assistance since any lactulose/MiraLax or enemas did not work. Patient continues to be on Rocephin for urine positive for E coli we will continue to monitor patient. A.m. labs. REVIEW OF SYSTEMS 12-unable to obtain ROS from patient due to patient's medical condition (Goode's palsy, nonverbal). PHYSICAL EXAM GENERAL APPEARANCE: The patient is awake, alert, and oriented, in no acute cardiopulmonary distress. NEUROLOGICAL: Cranial nerves II-XII grossly intact. Motor is 5/5 in bilateral upper and lower extremities proximal to distal. No sensory deficits. HEENT: Face is symmetric. Pupils are equal and reactive. Extraocular movements are intact. NECK: Supple. No JVD. No thyromegaly. No submental, submandibular, pre- /postauricular, occipital or supraclavicular lymphadenopathy. CHEST: Normal chest expansion. No Telemetry. LUNGS: Absence of any rales, rhonchi or any wheezing. CARDIOVASCULAR: Regular. S1 and S2 normal. No appreciable rubs, murmurs or gallops. ABDOMEN: Distended and tender. There is no rebound, voluntary guarding, or rigidity. : Deferred. No Khoury. EXTREMITIES: Non-edematous and not cyanotic. No clubbing. Good capillary refill. SKIN: No skin breakdown. Vital Signs (last 8hr) Date Time Temp Pulse Resp B/P (MAP) Pulse Ox O2 Delivery O2 Flow Rate FiO2 08/26/24 08:00 97.5 84 18 131/77 100 Room Air 08/26/24 08:00 100 Room Air* 0 21 LABS: Laboratory: Test 08/26/24 11:10 08/26/24 04:53 08/25/24 04:05 08/25/24 03:40 Range/Units Whole Blood Glucose 101 70-110 MG/DL White Blood Count 3.0 L 4.8-10.8 K/uL Red Blood Count 4.11 4.00-5.50 MIL/uL Hemoglobin 11.7 L 12.0-16.0 g/dL Hematocrit 34.4 L 36-48 % Mean Corpuscular Volume 83.7 79-99 fL Mean Corpuscular Hemoglobin 28.5 27.0-33.0 pg Mean Corpuscular Hemoglobin Concent 34.0 32.0-36.0 g/dL Red Cell Distribution Width 12.7 11.0-15.5 % Platelet Count 241 130-400 K/uL Mean Platelet Volume 8.9 7.5-10.5 fL Immature Granulocyte % (Auto) 0.3 0-1 % Neutrophils (%) (Auto) 48.1 40.0-77.0 % Lymphocytes (%) (Auto) 35.1 21.0-51.0 % Monocytes (%) (Auto) 9.8 3.0-13.0 % Eosinophils (%) (Auto) 5.7 0.0-8.0 % Basophils (%) (Auto) 1.0 0.0-5.0 % Neutrophils # (Auto) 1.4 L 1.8-7.7 K/uL Lymphocytes # (Auto) 1.0 1.0-4.8 K/uL Monocytes # (Auto) 0.3 0.1-1.0 K/uL Eosinophils # (Auto) 0.17 0.00-0.70 K/uL Basophils # (Auto) 0.03 0.00-0.20 K/uL Absolute Immature Granulocyte (auto 0.01 0-1 K/uL Segmented Neutrophils % 49 40-70 % Lymphocytes % (Manual) 32 22-44 % Monocytes % (Manual) 7 2-9 % Eosinophils % (Manual) 4 1-6 % Nucleated Red Blood Cells 0.0 0.0-0.19 % Differential Comment MANUAL DIFFERENTIAL Reactive Lymphocytes 8 H 0-0 % White Cell Morphology Comment See comments Platelet Morphology Comment ADEQUATE Red Blood Cell Morphology NORMAL Sodium Level 133 L 136-145 mmol/L Potassium Level 3.3 L 3.5-5.1 mmol/L Chloride Level 98 L 101-111 mmol/L Carbon Dioxide Level 32 21-32 mmol/L Blood Urea Nitrogen 15 7-18 mg/dL Creatinine 0.4 L 0.5-1.0 mg/dL Glomerular Filtration Rate Calc 105 >90 mL/min Random Glucose 82 70-105 mg/dL Total Calcium 8.1 L 8.5-10.1 mg/dL Magnesium Level 2.40 1.80-2.40 mg/dL Total Bilirubin 0.4 0.2-1.0 mg/dL Aspartate Amino Transf (AST/SGOT) 22 10-37 U/L Alanine Aminotransferase (ALT/SGPT) 14 12-78 U/L Alkaline Phosphatase 52 50-136 U/L Total Protein 5.1 L 6.0-8.3 g/dL Albumin 2.7 L 3.5-5.0 g/dL Hemoglobin A1c 5.9 4.0-6.0 % Estimated Average Glucose (eAG) 123 70-126 mg/dL Phosphorus Level 3.4 2.5-4.9 mg/dL Thyroid Stimulating Hormone (TSH) 1.97 0.36-3.74 uIU/mL Urine Color YELLOW YELLOW Urine Appearance CLOUDY H CLEAR Urine pH 5.5 5.0-8.0 Urine Specific [place] 1.017 1.001-1.031 Urine Protein NEGATIVE NEGATIVE mg/dL Urine Glucose (UA) NEGATIVE NEGATIVE mg/dL Urine Ketones NEGATIVE NEGATIVE mg/dL Urine Occult Blood +- (TRACE) H NEGATIVE Urine Nitrate NEGATIVE NEGATIVE Urine Bilirubin NEGATIVE NEGATIVE mg/dL Urine Urobilinogen 0.2 0.2-1.0 mg/dL Urine Leukocyte Esterase 25 H NEGATIVE Bhupendra/uL Urine RBC 0-1 0-1 /HPF Urine WBC 2-5 H 0-1 /HPF Urine Squamous Epithelial Cells Rare 0-2 /HPF Urine Bacteria Moderate H None Seen /HPF Urine Hyaline Casts 2-5 H 0-1 /LPF /LPF Test 08/24/24 20:17 Range/Units Total Creatine Kinase 37 # 21-232 U/L Lipase 49 16-77 U/L Current Medications Medications (Trade) Dose Ordered Sig/Ricardo Route PRN Reason Start Time Stop Time Status Last Admin Dose Admin Acetaminophen (TYLenol 325MG TAB) 650 mg Q6H PRN PO FEVER/MILD PAIN LEVEL 1-3 08/24/24 22:00 09/23/24 21:59 Acetaminophen (TYLenol 650MG SUPPOSITORY) 650 mg Q6H PRN RC FEVER / MILD PAIN 1-3 IF NPO 08/24/24 22:00 09/23/24 21:59 Ceftriaxone Sodium (ROCEphine 1G INJ) 1 gm Q24H IVPB 08/25/24 13:30 09/04/24 13:29 08/25/24 13:30 1 GM Dextrose (D50w) 50 ml AD PRN IV HYPOGLYCEMIA PROTOCOL 08/24/24 22:00 09/23/24 21:59 Docusate Sodium (COLace 100MG CAP) 100 mg BID PRN PO c 08/24/24 22:00 09/23/24 21:59 Ferrous Sulfate (Ferrous Sulfate) 325 mg DAILY PO 08/26/24 09:00 09/25/24 08:59 08/26/24 10:17 325 MG Glucagon (Glucagon 1mg Kit) 1 mg AD PRN IM HYPOGLYCEMIA PROTOCOL 08/24/24 22:00 09/23/24 21:59 Glycerin (Glycerin Adult Supp) 1 supp DAILY08 RC 08/25/24 08:00 08/27/24 21:59 08/26/24 08:00 1 SUPP Glycerin (Glycerin Adult Supp) 1 supp Q24H RC 08/25/24 22:00 08/25/24 02:47 DC Hydrochlorothiazide (hydroCHLOROthiazide 25MG) 12.5 mg DAILY PO 08/26/24 09:00 09/25/24 08:59 08/26/24 10:17 12.5 MG Insulin Human Regular (humuLIN R 100 UNIT/ML 3ML) INSULIN SLIDING SCAL... ACHS SQ 08/25/24 07:30 09/24/24 07:29 Labetalol HCl (TRANdate 20MG SYG) 10 mg Q2H PRN IV SBP GREATER THAN 180 08/24/24 22:00 09/23/24 21:59 Lactated Ringer's 1,000 ml @ 75 mls/hr [id number] IV 08/24/24 22:00 09/23/24 21:59 08/26/24 08:00 75 MLS/HR Lactulose (Constulose 20gm/ 30ml Udcup) 20 gm BID PO 08/25/24 09:00 08/26/24 12:00 DC 08/26/24 10:18 20 GM Lactulose (Constulose 20gm/ 30ml Udcup) 20 gm Q6H PRN PO CONSTIPATION 08/24/24 22:00 09/23/24 21:59 Lisinopril (Prinivil 5mg) 5 mg DAILY PO 08/26/24 09:00 09/25/24 08:59 08/26/24 10:17 5 MG Magnesium Sulfate 50 ml @ 0 mls/hr PROTOCOL PRN IV MAGNESIUM PROTOCOL 08/24/24 22:00 09/23/24 21:59 08/25/24 20:02 25 MLS/HR Ondansetron HCl (zoFRAN 4MG INJ) 4 mg Q6H PRN IVP NAUSEA/VOMITING 08/24/24 22:00 09/23/24 21:59 Pantoprazole Sodium (PROTonix 40MG INJ) 40 mg BID IVP 08/25/24 09:00 09/24/24 08:59 08/26/24 10:17 40 MG Permethrin (Elimite Cream 5%) 1 gm AD TP 08/25/24 04:00 08/25/24 04:04 DC Potassium Chloride 10 meq/ Sodium Chloride 50 ml @ 50 mls/hr PROTOCOL IV 08/24/24 22:00 08/24/24 21:58 DC Potassium Chloride 100 ml @ 50 mls/hr AD PRN IV POTASSIUM PROTOCOL 08/24/24 22:00 09/23/24 21:59 08/24/24 22:10 50 MLS/HR Potassium Chloride 100 ml @ 100 mls/hr AD PRN IV POTASSIUM PROTOCOL 08/24/24 22:00 08/24/24 21:58 DC Temazepam (restORIL 15 MG CAP) 15 mg HS PRN PO INSOMNIA/SLEEP 08/24/24 22:00 09/23/24 21:59 08/25/24 01:41 15 MG DIAGNOSTICS / RADIOLOGY: [ ] ASSESSMENT: Acute abdominal pain, POA Severe constipation/fecal impaction POA Distended, Fluid-filled loops of small bowel and colon, enterocolitis vs early obstruction Constipation with fecal impaction, POA Electrolyte derangement (Hyponatremia, hypokalemia, hypochloremia) Acute dehydration Hyperglycemia Prerenal azotemia UTI Chronic problem list: cerebral palsy, nonverbal, arm contractures, and hypertension PLAN: Consult GI for severe fecal impaction KUB shows severe fecal impaction General surgeon consulted for the early obstruction No surgical intervention at this moment medical management only. Patient cleared on a clear liquid diet. Advance as tolerated -IV hydration with LR 75 mL an hour. Continue Rocephin CT abdomen/pelvis showed fecal material rectum concerning for fecal impaction. Enterocolitis versus early obstruction -Oxygen supplement as needed to maintain oxygen levels equal to or greater than 92% blood pressure monitoring resumed home blood pressure medications -Glucometer checks before meals and at bedtime with insulin regular sliding scale. -AM labs. -Monitor electrolytes and treat accordingly. - decubitus precaution Turn every 2 hours. -DVT and GI prophylaxis: SCDs and Protonix. ATTESTATION BY PHYSICIAN I have seen and examined the patient. I reviewed the documentation, medical decision making, and treatment plan as noted by the mid-level provider above. I agree with the findings and plan of care. CAROLYN Kennedy MD FIELD AIDE Aug 26, 2024 15:27
[2024-08-27] VITALS (7 sets, daily range): BP systolic 124–145; BP diastolic 64–80; PULSE 73–95; RESP 16–18; TEMP 97–98.3; O2SAT 96
[2024-08-27 04:47] LABS: BASOPHILS # (AUTO) 0.03 K/uL (0.00-0.20); BASOPHILS % (AUTO) 0.7 % (0.0-5.0); EOSINOPHILS # (AUTO) 0.24 K/uL (0.00-0.70); EOSINOPHILS % (AUTO) 5.8 % (0.0-8.0); HEMATOCRIT 34.1 % (36-48); IMMATURE GRANULOCYTE ABSOLUTE 0.01 K/uL (0-1); LYMPHOCYTES # (AUTO) 1.1 K/uL (1.0-4.8); LYMPHOCYTES % (AUTO) 26.6 % (21.0-51.0); MEAN CORPUSCULAR HEMOGLOBIN 28.5 pg (27.0-33.0); MEAN CORPUSCULAR HGB CONC 34.6 g/dL (32.0-36.0); MEAN CORPUSCULAR VOLUME 82.4 fL (79-99); MONOCYTES # (AUTO) 0.3 K/uL (0.1-1.0); MONOCYTES % (AUTO) 7.5 % (3.0-13.0); NEUTROPHILS # (AUTO) 2.4 K/uL (1.8-7.7); NEUTROPHILS % (AUTO) 59.2 % (40.0-77.0); PLATELET COUNT (AUTO) 278 K/uL (130-400); RED BLOOD CELL COUNT(AUTO) 4.14 MIL/uL (4.00-5.50); RED CELL DISTRIBUTION WIDTH 12.8 % (11.0-15.5); WHITE BLOOD COUNT (AUTO) 4.1 K/uL (4.8-10.8)
[2024-08-27 05:28] LABS: ALBUMIN 2.7 g/dL (3.5-5.0); BILIRUBIN,TOTAL 0.4 mg/dL (0.2-1.0); CREATININE 0.4 mg/dL (0.5-1.0); MAGNESIUM 1.9 mg/dL (1.80-2.40); POTASSIUM 4.2 mmol/L (3.5-5.1); TOTAL PROTEIN, SERUM 5.1 g/dL (6.0-8.3)
--- NOTE | 2024-08-27 13:00 | HMCIMG ---
Exam Type: ABD 1VW Clinical Information: COMPARISION FROM 1ST ONE Comparison: None Findings: Abdomen demonstrates no evidence of pathologic calcification or soft tissue mass. There are no radiopacities to suggest calculous disease. There is abundant fecal matter consistent with constipation. There is no evidence of dilatation to suggest obstruction or adynamic ileus. The bony structures are unremarkable. IMPRESSION: Constipation.
[2024-08-27] MEDS: LACTULOSE 20 GM/30 ML UDCUP PO PRN (13:09)
--- NOTE | 2024-08-27 15:53 | PN ---
This is a this 74-year-old female with concerns of enterocolitis Interval history: This 74-year-old female with clear liquid diet No abdominal pain reported No acute events reported overnight No history of emesis Physical exam General: Awake alert and oriented Heart: Regular rate and rhythm} Lungs: Clear to auscultation no distress Abdomen: [Soft, nontender, nondistended Assessment : This is a 74-year-old female with likely enterocolitis Plan Patient to continue with current medical management Surgical team to sign off at this time and be reconsulted if any new surgical concerns present Vitals/Labs Vital Signs Date Time Temp Pulse Resp B/P (MAP) Pulse Ox O2 Delivery O2 Flow Rate FiO2 08/27/24 11:21 98.1 85 18 133/73 98 Room Air 08/27/24 08:00 0 21 Laboratory Tests 08/27/24 04:04 Medications Current Medications Sodium Chloride 1,000 ml @ 125 mls/hr ONCE ONCE IV Last administered on 08/24/24at 20:16; Start 08/24/24 at 20:30; Stop 08/25/24 at 03:09; Status DC Morphine Sulfate 2 mg ONCE ONCE IVP Last administered on 08/24/24at 20:32; Start 08/24/24 at 20:30; Stop 08/24/24 at 20:31; Status DC Potassium Chloride 10 meq/ Sodium Chloride 50 ml @ 50 mls/hr PROTOCOL IV; Start 08/24/24 at 22:00; Stop 08/24/24 at 21:58; Status DC Lactated Ringer's 1,000 ml @ 75 mls/hr [id number] IV Last administered on 08/27/24at 08:46; Start 08/24/24 at 22:00; Stop 09/23/24 at 21:59 Acetaminophen 650 mg Q6H PRN PO; Start 08/24/24 at 22:00; Stop 09/23/24 at 21:59 Acetaminophen 650 mg Q6H PRN RC; Start 08/24/24 at 22:00; Stop 09/23/24 at 21:59 Lactulose 20 gm Q6H PRN PO Last administered on 08/27/24at 13:09; Start 08/24/24 at 22:00; Stop 09/23/24 at 21:59 Docusate Sodium 100 mg BID PRN PO; Start 08/24/24 at 22:00; Stop 09/23/24 at 21:59 Temazepam 15 mg HS PRN PO Last administered on 08/25/24at 01:41; Start 08/24/24 at 22:00; Stop 09/23/24 at 21:59 Ondansetron HCl 4 mg Q6H PRN IVP; Start 08/24/24 at 22:00; Stop 09/23/24 at 21:59 Labetalol HCl 10 mg Q2H PRN IV; Start 08/24/24 at 22:00; Stop 09/23/24 at 21:59 Insulin Human Regular INSULIN SLIDING SCAL... ACHS SQ; Start 08/25/24 at 07:30; Stop 09/24/24 at 07:29 Potassium Chloride 100 ml @ 100 mls/hr AD PRN IV; Start 08/24/24 at 22:00; Stop 08/24/24 at 21:58; Status DC Dextrose 50 ml AD PRN IV; Start 08/24/24 at 22:00; Stop 09/23/24 at 21:59 Glucagon 1 mg AD PRN IM; Start 08/24/24 at 22:00; Stop 09/23/24 at 21:59 Magnesium Sulfate 50 ml @ 0 mls/hr PROTOCOL PRN IV Last administered on 08/27/24at 06:12; Start 08/24/24 at 22:00; Stop 09/23/24 at 21:59 Potassium Chloride 100 ml @ 50 mls/hr AD PRN IV Last administered on 08/24/24at 22:10; Start 08/24/24 at 22:00; Stop 09/23/24 at 21:59 Glycerin 1 supp Q24H RC; Start 08/25/24 at 22:00; Stop 08/25/24 at 02:47; Status DC Glycerin 1 supp DAILY08 RC Last administered on 08/27/24at 13:08; Start 08/25/24 at 08:00; Stop 08/27/24 at 21:59 Lactulose 20 gm BID PO Last administered on 08/26/24at 10:18; Start 08/25/24 at 09:00; Stop 08/26/24 at 12:00; Status DC Pantoprazole Sodium 40 mg BID IVP Last administered on 08/27/24at 08:41; Start 08/25/24 at 09:00; Stop 09/24/24 at 08:59 Permethrin 1 gm AD TP; Start 08/25/24 at 04:00; Stop 08/25/24 at 04:04; Status DC Permethrin 1 gm ONCE ONCE TP Last administered on 08/25/24at 05:06; Start 08/25/24 at 04:30; Stop 08/25/24 at 04:31; Status DC Lisinopril 5 mg DAILY PO Last administered on 08/27/24at 08:40; Start 08/26/24 at 09:00; Stop 09/25/24 at 08:59 Ferrous Sulfate 325 mg DAILY PO Last administered on 08/27/24at 08:40; Start 08/26/24 at 09:00; Stop 09/25/24 at 08:59 Hydrochlorothiazide 12.5 mg DAILY PO Last administered on 08/27/24at 08:40; Start 08/26/24 at 09:00; Stop 09/25/24 at 08:59 Ceftriaxone Sodium 1 gm Q24H IVPB Last administered on 08/27/24at 13:09; Start 08/25/24 at 13:30; Stop 09/04/24 at 13:29 Potassium Chloride 40 meq ONCE ONCE PO Last administered on 08/26/24at 09:00; Start 08/26/24 at 09:00; Stop 08/26/24 at 09:01; Status DC Potassium Chloride 20 meq ONCE ONCE PO Last administered on 08/26/24at 19:08; Start 08/26/24 at 16:00; Stop 08/26/24 at 16:01; Status DC IRENA EVANS Jr. [place] Aug 27, 2024 15:53
--- NOTE | 2024-08-27 18:00 | CONS ---
GASTROENTEROLOGY CONSULTATION NOTE Date of Consultation: Aug 27, 2024 Time of Consultation: 18:00 History of Present Illness: This is a 74-year-old female with past medical history of cerebral palsy, bedridden, contractures, hypertension was brought in due to diffuse abdominal pain. Patient was constipated with no bowel movement for several days. She was seen by general surgery. We were consulted due to persistent constipation. She has had multiple bowel movements however KUB continues to reveal constipation. Review of Systems: CONSTITUTIONAL: No malaise or change in sensation of wellbeing. ENMT: No rhinorrhea, otorrhea, sinus pain, ear ache. CARDIOVASCULAR: No angina, palpitations, orthopnea or paroxysmal dyspnea. RESPIRATORY: No SOB. GASTROINTESTINAL: No abdominal pain, nausea, vomiting, diarrhea, hematemesis, melena or change in the patient's habitual bowel movements consistency/number. GENITOURINARY: No dysuria, hematuria or change in bladder continence. MUSCULOSKELETAL: No new muscle pain or decrease in muscular strength. No new joint swelling, redness or tenderness. SKIN: No new rash. Past Medical History: [ ] Past Surgical History: [ ] Past Social History: [ ] Family History: [ ] Coded Allergies: No Known Allergies (Unverified Allergy, Unknown, 07/20/21) Physical Exam: GEN: Awake, alert, oriented in person, time and place, and in no acute distress. HEENT: No sinus tenderness. Tympanic membranes were not examined. No rhinorrhea. Oral pharyngeal mucosa is pink, moist and within normal limits. Neck is supple with no cervical lymphadenopathy, thyromegaly or JVD. CHEST: Inspection, palpation and percussion of the chest were unremarkable. Lung auscultation revealed normal breath sounds bilaterally. CARDIAC: PMI is within normal limits. Heart sounds are regular. Normal S1, S2. No gallop or murmur. ABD: Soft, non-tender and not distended. No peritoneal signs on palpation. No organomegaly. Normal bowel sounds. EXT: No cyanosis or clubbing. No edema. SKIN: Intact. No rashes. JOINTS: No evidence of synovitis or acute arthritis. NEURO: Alert and oriented to name, place and person. Cranial nerve examination is unremarkable. No focal motor deficits. Normal speech. Gait is normal. Strength is normal. Vital Sign (Last 24 Hours) 08/27/24 08/27/24 08:00 16:39 Temp 98.2 Pulse 81 Resp 18 B/P (MAP) 134/64 Pulse Ox 98 O2 Delivery Room Air O2 Flow Rate 0 FiO2 21 Intake & Output (last 24hrs) 08/26/24 08/26/24 08/27/24 15:00 23:00 07:00 Intake Total 240 ml 240 ml 0 ml Output Total 100 ml 120 ml Balance 140 ml 120 ml 0 ml Laboratory: [ ] Laboratory: Test 08/27/24 15:32 08/27/24 04:04 08/26/24 04:53 Range/Units Whole Blood Glucose 103 70-110 MG/DL White Blood Count 4.1 #L 4.8-10.8 K/uL Red Blood Count 4.14 4.00-5.50 MIL/uL Hemoglobin 11.8 L 12.0-16.0 g/dL Hematocrit 34.1 L 36-48 % Mean Corpuscular Volume 82.4 79-99 fL Mean Corpuscular Hemoglobin 28.5 27.0-33.0 pg Mean Corpuscular Hemoglobin Concent 34.6 32.0-36.0 g/dL Red Cell Distribution Width 12.8 11.0-15.5 % Platelet Count 278 130-400 K/uL Mean Platelet Volume 9.2 7.5-10.5 fL Immature Granulocyte % (Auto) 0.2 0-1 % Neutrophils (%) (Auto) 59.2 40.0-77.0 % Lymphocytes (%) (Auto) 26.6 21.0-51.0 % Monocytes (%) (Auto) 7.5 3.0-13.0 % Eosinophils (%) (Auto) 5.8 0.0-8.0 % Basophils (%) (Auto) 0.7 0.0-5.0 % Neutrophils # (Auto) 2.4 1.8-7.7 K/uL Lymphocytes # (Auto) 1.1 1.0-4.8 K/uL Monocytes # (Auto) 0.3 0.1-1.0 K/uL Eosinophils # (Auto) 0.24 0.00-0.70 K/uL Basophils # (Auto) 0.03 0.00-0.20 K/uL Absolute Immature Granulocyte (auto 0.01 0-1 K/uL Nucleated Red Blood Cells 0.0 0.0-0.19 % Sodium Level 131 L 136-145 mmol/L Potassium Level 4.2 3.5-5.1 mmol/L Chloride Level 97 L 101-111 mmol/L Carbon Dioxide Level 31 21-32 mmol/L Blood Urea Nitrogen 8 7-18 mg/dL Creatinine 0.4 L 0.5-1.0 mg/dL Glomerular Filtration Rate Calc 105 >90 mL/min Random Glucose 82 70-105 mg/dL Total Calcium 8.2 L 8.5-10.1 mg/dL Magnesium Level 1.90 1.80-2.40 mg/dL Total Bilirubin 0.4 0.2-1.0 mg/dL Aspartate Amino Transf (AST/SGOT) 17 10-37 U/L Alanine Aminotransferase (ALT/SGPT) 17 # 12-78 U/L Alkaline Phosphatase 51 50-136 U/L Total Protein 5.1 L 6.0-8.3 g/dL Albumin 2.7 L 3.5-5.0 g/dL Segmented Neutrophils % 49 40-70 % Lymphocytes % (Manual) 32 22-44 % Monocytes % (Manual) 7 2-9 % Eosinophils % (Manual) 4 1-6 % Differential Comment MANUAL DIFFERENTIAL Reactive Lymphocytes 8 H 0-0 % White Cell Morphology Comment See comments Platelet Morphology Comment ADEQUATE Red Blood Cell Morphology NORMAL Current Medications Medications (Trade) Dose Ordered Sig/Ricardo Route PRN Reason Start Time Stop Time Status Last Admin Dose Admin Acetaminophen (TYLenol 325MG TAB) 650 mg Q6H PRN PO FEVER/MILD PAIN LEVEL 1-3 08/24/24 22:00 09/23/24 21:59 Acetaminophen (TYLenol 650MG SUPPOSITORY) 650 mg Q6H PRN RC FEVER / MILD PAIN 1-3 IF NPO 08/24/24 22:00 09/23/24 21:59 Ceftriaxone Sodium (ROCEphine 1G INJ) 1 gm Q24H IVPB 08/25/24 13:30 09/04/24 13:29 08/27/24 13:09 1 GM Dextrose (D50w) 50 ml AD PRN IV HYPOGLYCEMIA PROTOCOL 08/24/24 22:00 09/23/24 21:59 Docusate Sodium (COLace 100MG CAP) 100 mg BID PRN PO c 08/24/24 22:00 09/23/24 21:59 Ferrous Sulfate (Ferrous Sulfate) 325 mg DAILY PO 08/26/24 09:00 09/25/24 08:59 08/27/24 08:40 325 MG Glucagon (Glucagon 1mg Kit) 1 mg AD PRN IM HYPOGLYCEMIA PROTOCOL 08/24/24 22:00 09/23/24 21:59 Glycerin (Glycerin Adult Supp) 1 supp DAILY08 08/25/24 08:00 08/27/24 21:59 08/27/24 13:08 1 SUPP Glycerin (Glycerin Adult Supp) 1 supp Q24H 08/25/24 22:00 08/25/24 02:47 DC Hydrochlorothiazide (hydroCHLOROthiazide 25MG) 12.5 mg DAILY PO 08/26/24 09:00 09/25/24 08:59 08/27/24 08:40 12.5 MG Insulin Human Regular (humuLIN R 100 UNIT/ML 3ML) INSULIN SLIDING SCAL... ACHS SQ 08/25/24 07:30 09/24/24 07:29 Labetalol HCl (TRANdate 20MG SYG) 10 mg Q2H PRN IV SBP GREATER THAN 180 08/24/24 22:00 09/23/24 21:59 Lactated Ringer's 1,000 ml @ 75 mls/hr [id number] IV 08/24/24 22:00 09/23/24 21:59 08/27/24 17:01 75 MLS/HR Lactulose (Constulose 20gm/ 30ml Udcup) 20 gm BID PO 08/25/24 09:00 08/26/24 12:00 DC 08/26/24 10:18 20 GM Lactulose (Constulose 20gm/ 30ml Udcup) 20 gm Q6H PRN PO CONSTIPATION 08/24/24 22:00 09/23/24 21:59 08/27/24 13:09 20 GM Lisinopril (Prinivil 5mg) 5 mg DAILY PO 08/26/24 09:00 09/25/24 08:59 08/27/24 08:40 5 MG Magnesium Sulfate 50 ml @ 0 mls/hr PROTOCOL PRN IV MAGNESIUM PROTOCOL 08/24/24 22:00 09/23/24 21:59 08/27/24 06:12 25 MLS/HR Ondansetron HCl (zoFRAN 4MG INJ) 4 mg Q6H PRN IVP NAUSEA/VOMITING 08/24/24 22:00 09/23/24 21:59 Pantoprazole Sodium (PROTonix 40MG INJ) 40 mg BID IVP 08/25/24 09:00 09/24/24 08:59 08/27/24 08:41 40 MG Permethrin (Elimite Cream 5%) 1 gm AD TP 08/25/24 04:00 08/25/24 04:04 DC Potassium Chloride 10 meq/ Sodium Chloride 50 ml @ 50 mls/hr PROTOCOL IV 08/24/24 22:00 08/24/24 21:58 DC Potassium Chloride 100 ml @ 50 mls/hr AD PRN IV POTASSIUM PROTOCOL 08/24/24 22:00 09/23/24 21:59 08/24/24 22:10 50 MLS/HR Potassium Chloride 100 ml @ 100 mls/hr AD PRN IV POTASSIUM PROTOCOL 08/24/24 22:00 08/24/24 21:58 DC Temazepam (restORIL 15 MG CAP) 15 mg HS PRN PO INSOMNIA/SLEEP 08/24/24 22:00 09/23/24 21:59 08/25/24 01:41 15 MG Diagnostics / Radiology: [COPY/PASTE HERE IF NO REPORTS PLEASE DELETE SECTION] Assessment: Constipation Plan: Golytely until successful DIONICIO ARMAS CORRESPONDENCE DICTATOR Aug 27, 2024 18:00
[2024-08-28] VITALS: BP 107/59; PULSE 62; RESP 17; TEMP 98.2
[2024-08-28 03:54] LABS: BASOPHILS # (AUTO) 0.05 K/uL (0.00-0.20); BASOPHILS % (AUTO) 1.2 % (0.0-5.0); EOSINOPHILS # (AUTO) 0.26 K/uL (0.00-0.70); EOSINOPHILS % (AUTO) 6.1 % (0.0-8.0); HEMATOCRIT 32.8 % (36-48); IMMATURE GRANULOCYTE ABSOLUTE 0.01 K/uL (0-1); LYMPHOCYTES # (AUTO) 1.3 K/uL (1.0-4.8); MEAN CORPUSCULAR HEMOGLOBIN 28.6 pg (27.0-33.0); MEAN CORPUSCULAR HGB CONC 35.1 g/dL (32.0-36.0); MEAN CORPUSCULAR VOLUME 81.6 fL (79-99); MONOCYTES # (AUTO) 0.4 K/uL (0.1-1.0); MONOCYTES % (AUTO) 9.8 % (3.0-13.0); NEUTROPHILS # (AUTO) 2.2 K/uL (1.8-7.7); NEUTROPHILS % (AUTO) 51.7 % (40.0-77.0); PLATELET COUNT (AUTO) 254 K/uL (130-400); RED BLOOD CELL COUNT(AUTO) 4.02 MIL/uL (4.00-5.50); RED CELL DISTRIBUTION WIDTH 12.8 % (11.0-15.5); WHITE BLOOD COUNT (AUTO) 4.3 K/uL (4.8-10.8)
[2024-08-28 04:00] VITALS: BP 117/71; PULSE 93; RESP 18; TEMP 97.2
[2024-08-28 04:07] LABS: ALBUMIN 2.6 g/dL (3.5-5.0); BILIRUBIN,TOTAL 0.3 mg/dL (0.2-1.0); CREATININE 0.3 mg/dL (0.5-1.0); MAGNESIUM 2.1 mg/dL (1.80-2.40); POTASSIUM 4.1 mmol/L (3.5-5.1); TOTAL PROTEIN, SERUM 5.2 g/dL (6.0-8.3)
[2024-08-28 08:00] VITALS: BP 141/75; PULSE 78; RESP 18; TEMP 97.6; O2SAT 99
[2024-08-28] MEDS: PEG 3350/NA SULF,BICARB,CL/KCL 4000 ML SOLN PO ONE (10:10)
--- NOTE | 2024-08-28 10:17 | PN ---
GASTROENTEROLOGY PROGRESS NOTE Date of Visit: Aug 28, 2024 Time of Visit: 10:17 Events / Notes: This is a 74-year-old female with past medical history of cerebral palsy, bedridden, contractures, hypertension was brought in due to diffuse abdominal pain. Patient was constipated with no bowel movement for several days. She was seen by general surgery. We were consulted due to persistent constipation. She has had multiple bowel movements however KUB continues to reveal constipation. Review of Systems: CONSTITUTIONAL: No malaise or change in sensation of wellbeing. ENMT: No rhinorrhea, otorrhea, sinus pain, ear ache. CARDIOVASCULAR: No angina, palpitations, orthopnea or paroxysmal dyspnea. RESPIRATORY: No SOB. GASTROINTESTINAL: No abdominal pain, nausea, vomiting, diarrhea, hematemesis, melena or change in the patient's habitual bowel movements consistency/number. GENITOURINARY: No dysuria, hematuria or change in bladder continence. MUSCULOSKELETAL: No new muscle pain or decrease in muscular strength. No new joint swelling, redness or tenderness. SKIN: No new rash. Physical Exam: GEN: Awake, alert, oriented in person, time and place, and in no acute distress. HEENT: No sinus tenderness. Tympanic membranes were not examined. No rhinorrhea. Oral pharyngeal mucosa is pink, moist and within normal limits. Neck is supple with no cervical lymphadenopathy, thyromegaly or JVD. CHEST: Inspection, palpation and percussion of the chest were unremarkable. Lung auscultation revealed normal breath sounds bilaterally. CARDIAC: PMI is within normal limits. Heart sounds are regular. Normal S1, S2. No gallop or murmur. ABD: Soft, non-tender and not distended. No peritoneal signs on palpation. No organomegaly. Normal bowel sounds. EXT: No cyanosis or clubbing. No edema. SKIN: Intact. No rashes. JOINTS: No evidence of synovitis or acute arthritis. NEURO: Alert and oriented to name, place and person. Cranial nerve examination is unremarkable. No focal motor deficits. Normal speech. Gait is normal. Strength is normal. Vital Signs (last 8hr) Date Time Temp Pulse Resp B/P (MAP) Pulse Ox O2 Delivery O2 Flow Rate FiO2 08/28/24 08:00 97.5 78 18 141/75 99 Room Air 21 08/28/24 04:00 97.2 93 18 117/71 100 Room Air Laboratory: [ ] Laboratory: Test 08/28/24 05:52 08/28/24 03:37 Range/Units Whole Blood Glucose 84 70-110 MG/DL White Blood Count 4.3 L 4.8-10.8 K/uL Red Blood Count 4.02 4.00-5.50 MIL/uL Hemoglobin 11.5 L 12.0-16.0 g/dL Hematocrit 32.8 L 36-48 % Mean Corpuscular Volume 81.6 79-99 fL Mean Corpuscular Hemoglobin 28.6 27.0-33.0 pg Mean Corpuscular Hemoglobin Concent 35.1 32.0-36.0 g/dL Red Cell Distribution Width 12.8 11.0-15.5 % Platelet Count 254 130-400 K/uL Mean Platelet Volume 8.7 7.5-10.5 fL Immature Granulocyte % (Auto) 0.2 0-1 % Neutrophils (%) (Auto) 51.7 40.0-77.0 % Lymphocytes (%) (Auto) 31.0 21.0-51.0 % Monocytes (%) (Auto) 9.8 3.0-13.0 % Eosinophils (%) (Auto) 6.1 0.0-8.0 % Basophils (%) (Auto) 1.2 0.0-5.0 % Neutrophils # (Auto) 2.2 1.8-7.7 K/uL Lymphocytes # (Auto) 1.3 1.0-4.8 K/uL Monocytes # (Auto) 0.4 0.1-1.0 K/uL Eosinophils # (Auto) 0.26 0.00-0.70 K/uL Basophils # (Auto) 0.05 0.00-0.20 K/uL Absolute Immature Granulocyte (auto 0.01 0-1 K/uL Nucleated Red Blood Cells 0.0 0.0-0.19 % Sodium Level 133 L 136-145 mmol/L Potassium Level 4.1 3.5-5.1 mmol/L Chloride Level 98 L 101-111 mmol/L Carbon Dioxide Level 32 21-32 mmol/L Blood Urea Nitrogen 10 7-18 mg/dL Creatinine 0.3 L 0.5-1.0 mg/dL Glomerular Filtration Rate Calc 113 >90 mL/min Random Glucose 94 70-105 mg/dL Total Calcium 8.2 L 8.5-10.1 mg/dL Magnesium Level 2.10 1.80-2.40 mg/dL Total Bilirubin 0.3 # 0.2-1.0 mg/dL Aspartate Amino Transf (AST/SGOT) 15 10-37 U/L Alanine Aminotransferase (ALT/SGPT) 15 12-78 U/L Alkaline Phosphatase 59 50-136 U/L Total Protein 5.2 L 6.0-8.3 g/dL Albumin 2.6 L 3.5-5.0 g/dL Current Medications Medications (Trade) Dose Ordered Sig/Ricardo Route PRN Reason Start Time Stop Time Status Last Admin Dose Admin Acetaminophen (TYLenol 325MG TAB) 650 mg Q6H PRN PO FEVER/MILD PAIN LEVEL 1-3 08/24/24 22:00 09/23/24 21:59 Acetaminophen (TYLenol 650MG SUPPOSITORY) 650 mg Q6H PRN RC FEVER / MILD PAIN 1-3 IF NPO 08/24/24 22:00 09/23/24 21:59 Ceftriaxone Sodium (ROCEphine 1G INJ) 1 gm Q24H IVPB 08/25/24 13:30 09/04/24 13:29 08/27/24 13:09 1 GM Dextrose (D50w) 50 ml AD PRN IV HYPOGLYCEMIA PROTOCOL 08/24/24 22:00 09/23/24 21:59 Docusate Sodium (COLace 100MG CAP) 100 mg BID PRN PO c 08/24/24 22:00 09/23/24 21:59 Ferrous Sulfate (Ferrous Sulfate) 325 mg DAILY PO 08/26/24 09:00 09/25/24 08:59 08/28/24 09:18 325 MG Glucagon (Glucagon 1mg Kit) 1 mg AD PRN IM HYPOGLYCEMIA PROTOCOL 08/24/24 22:00 09/23/24 21:59 Glycerin (Glycerin Adult Supp) 1 supp DAILY08 RC 08/25/24 08:00 08/27/24 21:59 DC 08/27/24 13:08 1 SUPP Glycerin (Glycerin Adult Supp) 1 supp Q24H RC 08/25/24 22:00 08/25/24 02:47 DC Hydrochlorothiazide (hydroCHLOROthiazide 25MG) 12.5 mg DAILY PO 08/26/24 09:00 09/25/24 08:59 08/28/24 09:17 12.5 MG Insulin Human Regular (humuLIN R 100 UNIT/ML 3ML) INSULIN SLIDING SCAL... ACHS SQ 08/25/24 07:30 09/24/24 07:29 Labetalol HCl (TRANdate 20MG SYG) 10 mg Q2H PRN IV SBP GREATER THAN 180 08/24/24 22:00 09/23/24 21:59 Lactated Ringer's 1,000 ml @ 75 mls/hr [id number] IV 08/24/24 22:00 09/23/24 21:59 08/27/24 17:01 75 MLS/HR Lactulose (Constulose 20gm/ 30ml Udcup) 20 gm BID PO 08/25/24 09:00 08/26/24 12:00 DC 08/26/24 10:18 20 GM Lactulose (Constulose 20gm/ 30ml Udcup) 20 gm Q6H PRN PO CONSTIPATION 08/24/24 22:00 09/23/24 21:59 08/27/24 13:09 20 GM Lisinopril (Prinivil 5mg) 5 mg DAILY PO 08/26/24 09:00 09/25/24 08:59 08/28/24 09:17 5 MG Magnesium Sulfate 50 ml @ 0 mls/hr PROTOCOL PRN IV MAGNESIUM PROTOCOL 08/24/24 22:00 09/23/24 21:59 08/27/24 06:12 25 MLS/HR Ondansetron HCl (zoFRAN 4MG INJ) 4 mg Q6H PRN IVP NAUSEA/VOMITING 08/24/24 22:00 09/23/24 21:59 Pantoprazole Sodium (PROTonix 40MG INJ) 40 mg BID IVP 08/25/24 09:00 09/24/24 08:59 08/28/24 09:17 40 MG Permethrin (Elimite Cream 5%) 1 gm AD TP 08/25/24 04:00 08/25/24 04:04 DC Potassium Chloride 10 meq/ Sodium Chloride 50 ml @ 50 mls/hr PROTOCOL IV 08/24/24 22:00 08/24/24 21:58 DC Potassium Chloride 100 ml @ 50 mls/hr AD PRN IV POTASSIUM PROTOCOL 08/24/24 22:00 09/23/24 21:59 08/24/24 22:10 50 MLS/HR Potassium Chloride 100 ml @ 100 mls/hr AD PRN IV POTASSIUM PROTOCOL 08/24/24 22:00 08/24/24 21:58 DC Temazepam (restORIL 15 MG CAP) 15 mg HS PRN PO INSOMNIA/SLEEP 08/24/24 22:00 09/23/24 21:59 08/25/24 01:41 15 MG Diagnostics / Radiology: [COPY/PASTE HERE IF NO REPORTS PLEASE DELETE SECTION] Assessment: Constipation Plan: Insert NGT for golytely No colonoscopy given severe constipation Daily miralax DIONICIO TAYLOR MOISTURE METER OPERATOR Aug 28, 2024 10:17
--- NOTE | 2024-08-28 11:59 | PN ---
[facility] PROGRESS NOTE Date of Service: Aug 28, 2024 Time of Service: 11:[address] Burden SUBJECTIVE: [ ] admission date: 08/24/24 PCP: Everardo Garcia MD Ms. Saeed is a 74-year-old female with history of cerebral palsy, bed ridden with limb contractures, and hypertension was brought to [facility] ED for evaluation of diffuse abdominal pain. Patient is nonverbal and is unable to furnish much history other than nodding at times. The patient had a similar presentation in the past with constipation with no bowel movement for many days. No vomiting hematemesis or melena, fever chills or rigors, nor chest pain pressure. 08/25/24 patient is seen and examined patient appears chronically ill. No family members at bedside. She is currently NPO receiving IV hydration we continue with bowel regiment. primary nurse report 2 large BM overnight. no moaning: nonverbal KUB is pending. 08/26/24 patient was seen by nurse practitioner and physician during rounding in room 410. CT abdomen/pelvis showed fecal material rectum concerning for fecal impaction. Enterocolitis versus early obstruction. UA was positive for leukocytosis. Urine culture pending. Patient continues to be on a clear liquid diet and already had three bowel movements in the past 24 hours. As per surgery no intervention at this moment. Allow diet and advance as tolerate. Patient receive two doses of 40 mEq of potassium for potassium 3.3. We will continue to monitor patient in the meantime. A.m. labs. 08/27/24 patient was seen by nurse practitioner physician during rounding in room 410. Repeated KUB showed severe constipation. At this moment we will consult GI for further assistance since any lactulose/MiraLax or enemas did not work. Patient continues to be on Rocephin for urine positive for E coli we will continue to monitor patient. A.m. labs. 08/28/24 patient was seen by nurse practitioner and physician during rounding in room 410. Patient was evaluated by the GI and at this moment they recommend GoLYTELY. RN got her orders and we will start patient on regimen. We will wait for further evaluation/recommendations of GI. [employer]osives Truck Driver spoke with GI PROP AND [employer]ENER[employer] MAKER Narcisa gallegos 08/28/2024 at 11:56 a.m.. We will continue to monitor patient in the meantime a.m. labs REVIEW OF SYSTEMS 12-unable to obtain ROS from patient due to patient's medical condition (Goode's palsy, nonverbal). PHYSICAL EXAM GENERAL APPEARANCE: The patient is awake, alert, and oriented, in no acute cardiopulmonary distress. NEUROLOGICAL: Cranial nerves II-XII grossly intact. Motor is 5/5 in bilateral upper and lower extremities proximal to distal. No sensory deficits. HEENT: Face is symmetric. Pupils are equal and reactive. Extraocular movements are intact. NECK: Supple. No JVD. No thyromegaly. No submental, submandibular, pre- /postauricular, occipital or supraclavicular lymphadenopathy. CHEST: Normal chest expansion. No Telemetry. LUNGS: Absence of any rales, rhonchi or any wheezing. CARDIOVASCULAR: Regular. S1 and S2 normal. No appreciable rubs, murmurs or gallops. ABDOMEN: Distended and tender. There is no rebound, voluntary guarding, or rigidity. : Deferred. No Khoury. EXTREMITIES: Non-edematous and not cyanotic. No clubbing. Good capillary refill. SKIN: No skin breakdown. Vital Signs (last 8hr) Date Time Temp Pulse Resp B/P (MAP) Pulse Ox O2 Delivery O2 Flow Rate FiO2 08/28/24 08:00 97.5 78 18 141/75 99 Room Air 21 08/28/24 04:00 97.2 93 18 117/71 100 Room Air LABS: Laboratory: Test 08/28/24 11:23 08/28/24 03:37 Range/Units Whole Blood Glucose 102 70-110 MG/DL White Blood Count 4.3 L 4.8-10.8 K/uL Red Blood Count 4.02 4.00-5.50 MIL/uL Hemoglobin 11.5 L 12.0-16.0 g/dL Hematocrit 32.8 L 36-48 % Mean Corpuscular Volume 81.6 79-99 fL Mean Corpuscular Hemoglobin 28.6 27.0-33.0 pg Mean Corpuscular Hemoglobin Concent 35.1 32.0-36.0 g/dL Red Cell Distribution Width 12.8 11.0-15.5 % Platelet Count 254 130-400 K/uL Mean Platelet Volume 8.7 7.5-10.5 fL Immature Granulocyte % (Auto) 0.2 0-1 % Neutrophils (%) (Auto) 51.7 40.0-77.0 % Lymphocytes (%) (Auto) 31.0 21.0-51.0 % Monocytes (%) (Auto) 9.8 3.0-13.0 % Eosinophils (%) (Auto) 6.1 0.0-8.0 % Basophils (%) (Auto) 1.2 0.0-5.0 % Neutrophils # (Auto) 2.2 1.8-7.7 K/uL Lymphocytes # (Auto) 1.3 1.0-4.8 K/uL Monocytes # (Auto) 0.4 0.1-1.0 K/uL Eosinophils # (Auto) 0.26 0.00-0.70 K/uL Basophils # (Auto) 0.05 0.00-0.20 K/uL Absolute Immature Granulocyte (auto 0.01 0-1 K/uL Nucleated Red Blood Cells 0.0 0.0-0.19 % Sodium Level 133 L 136-145 mmol/L Potassium Level 4.1 3.5-5.1 mmol/L Chloride Level 98 L 101-111 mmol/L Carbon Dioxide Level 32 21-32 mmol/L Blood Urea Nitrogen 10 7-18 mg/dL Creatinine 0.3 L 0.5-1.0 mg/dL Glomerular Filtration Rate Calc 113 >90 mL/min Random Glucose 94 70-105 mg/dL Total Calcium 8.2 L 8.5-10.1 mg/dL Magnesium Level 2.10 1.80-2.40 mg/dL Total Bilirubin 0.3 # 0.2-1.0 mg/dL Aspartate Amino Transf (AST/SGOT) 15 10-37 U/L Alanine Aminotransferase (ALT/SGPT) 15 12-78 U/L Alkaline Phosphatase 59 50-136 U/L Total Protein 5.2 L 6.0-8.3 g/dL Albumin 2.6 L 3.5-5.0 g/dL Current Medications Medications (Trade) Dose Ordered Sig/Ricardo Route PRN Reason Start Time Stop Time Status Last Admin Dose Admin Acetaminophen (TYLenol 325MG TAB) 650 mg Q6H PRN PO FEVER/MILD PAIN LEVEL 1-3 08/24/24 22:00 09/23/24 21:59 Acetaminophen (TYLenol 650MG SUPPOSITORY) 650 mg Q6H PRN RC FEVER / MILD PAIN 1-3 IF NPO 08/24/24 22:00 09/23/24 21:59 Ceftriaxone Sodium (ROCEphine 1G INJ) 1 gm Q24H IVPB 08/25/24 13:30 09/04/24 13:29 08/27/24 13:09 1 GM Dextrose (D50w) 50 ml AD PRN IV HYPOGLYCEMIA PROTOCOL 08/24/24 22:00 09/23/24 21:59 Docusate Sodium (COLace 100MG CAP) 100 mg BID PRN PO c 08/24/24 22:00 09/23/24 21:59 Ferrous Sulfate (Ferrous Sulfate) 325 mg DAILY PO 08/26/24 09:00 09/25/24 08:59 08/28/24 09:18 325 MG Glucagon (Glucagon 1mg Kit) 1 mg AD PRN IM HYPOGLYCEMIA PROTOCOL 08/24/24 22:00 09/23/24 21:59 Glycerin (Glycerin Adult Supp) 1 supp DAILY08 08/25/24 08:00 08/27/24 21:59 DC 08/27/24 13:08 1 SUPP Glycerin (Glycerin Adult Supp) 1 supp Q24H RC 08/25/24 22:00 08/25/24 02:47 DC Hydrochlorothiazide (hydroCHLOROthiazide 25MG) 12.5 mg DAILY PO 08/26/24 09:00 09/25/24 08:59 08/28/24 09:17 12.5 MG Insulin Human Regular (humuLIN R 100 UNIT/ML 3ML) INSULIN SLIDING SCAL... ACHS SQ 08/25/24 07:30 09/24/24 07:29 Labetalol HCl (TRANdate 20MG SYG) 10 mg Q2H PRN IV SBP GREATER THAN 180 08/24/24 22:00 09/23/24 21:59 Lactated Ringer's 1,000 ml @ 75 mls/hr [id number] IV 08/24/24 22:00 09/23/24 21:59 08/27/24 17:01 75 MLS/HR Lactulose (Constulose 20gm/ 30ml Udcup) 20 gm BID PO 08/25/24 09:00 08/26/24 12:00 DC 08/26/24 10:18 20 GM Lactulose (Constulose 20gm/ 30ml Udcup) 20 gm Q6H PRN PO CONSTIPATION 08/24/24 22:00 09/23/24 21:59 08/27/24 13:09 20 GM Lisinopril (Prinivil 5mg) 5 mg DAILY PO 08/26/24 09:00 09/25/24 08:59 08/28/24 09:17 5 MG Magnesium Sulfate 50 ml @ 0 mls/hr PROTOCOL PRN IV MAGNESIUM PROTOCOL 08/24/24 22:00 09/23/24 21:59 08/27/24 06:12 25 MLS/HR Ondansetron HCl (zoFRAN 4MG INJ) 4 mg Q6H PRN IVP NAUSEA/VOMITING 08/24/24 22:00 09/23/24 21:59 Pantoprazole Sodium (PROTonix 40MG INJ) 40 mg BID IVP 08/25/24 09:00 09/24/24 08:59 08/28/24 09:17 40 MG Permethrin (Elimite Cream 5%) 1 gm AD TP 08/25/24 04:00 08/25/24 04:04 DC Potassium Chloride 10 meq/ Sodium Chloride 50 ml @ 50 mls/hr PROTOCOL IV 08/24/24 22:00 08/24/24 21:58 DC Potassium Chloride 100 ml @ 50 mls/hr AD PRN IV POTASSIUM PROTOCOL 08/24/24 22:00 09/23/24 21:59 08/24/24 22:10 50 MLS/HR Potassium Chloride 100 ml @ 100 mls/hr AD PRN IV POTASSIUM PROTOCOL 08/24/24 22:00 08/24/24 21:58 DC Temazepam (restORIL 15 MG CAP) 15 mg HS PRN PO INSOMNIA/SLEEP 08/24/24 22:00 09/23/24 21:59 08/25/24 01:41 15 MG DIAGNOSTICS / RADIOLOGY: [ ] ASSESSMENT: Acute abdominal pain, POA Severe constipation/fecal impaction POA Distended, Fluid-filled loops of small bowel and colon, enterocolitis vs early obstruction Constipation with fecal impaction, POA Electrolyte derangement (Hyponatremia, hypokalemia, hypochloremia) Acute dehydration Hyperglycemia Prerenal azotemia UTI Chronic problem list: cerebral palsy, nonverbal, arm contractures, and hypertension PLAN: Consult GI for severe fecal impaction Per GI start GoLYTELY KUB shows severe fecal impaction Repeat KUB in a.m. General surgeon consulted for the early obstruction No surgical intervention at this moment medical management only. Patient cleared on a clear liquid diet. Advance as tolerated -IV hydration with LR 75 mL an hour. Continue Rocephin CT abdomen/pelvis showed fecal material rectum concerning for fecal impaction. Enterocolitis versus early obstruction -Oxygen supplement as needed to maintain oxygen levels equal to or greater than 92% blood pressure monitoring resumed home blood pressure medications -Glucometer checks before meals and at bedtime with insulin regular sliding scale. -AM labs. -Monitor electrolytes and treat accordingly. - decubitus precaution Turn every 2 hours. -DVT and GI prophylaxis: SCDs and Protonix. ATTESTATION BY PHYSICIAN I have seen and examined the patient. I reviewed the documentation, medical decision making, and treatment plan as noted by the mid-level provider above. I agree with the findings and plan of care. CAROLYN Kennedy MD PATIENT SERVICE REP Aug 28, 2024 11:59
[2024-08-28 12:00] VITALS: BP 130/74; PULSE 78; RESP 18; TEMP 97.8
--- NOTE | 2024-08-28 14:12 | NUR ---
NOTE CONTACTED JADYN FOR PT HAVING DIFFICULTY WITH THE GOLYTELY DUE TO CONDITION AND PT NOT BEING ABLE TO USE A STRAW. PENDING RECOMMENDATIONS AND RESPONSE.
--- NOTE | 2024-08-28 14:27 | NUR ---
GOLYTELY PATIENT UNABLE TO DRINK GOLYTELY ORDERED BY GI. PATIENT UNABLE TO CLOSE MOUTH COMPLETELY WHEN DRINKING AND WASTES ABOUT 80% OF DRINK WHEN ATTEMPTING TO DRINK IT. NOTIFIED CASE COORDINATOR FOR GI, DIONICIO TAYLOR NP. TORB TO PLACE NGT AND ADMINISTER GOLYTELY THROUGH NG TUBE. OK TO DISCONTINUE ONCE PATIENT FINISHES DRINK. ORDERS PLACED AND CARRIED OUT. WILL CONTINUE TO MONITOR.
[2024-08-28 16:00] VITALS: BP 139/76; PULSE 88; RESP 18; TEMP 97.6
[2024-08-28 20:00] VITALS: BP 157/74; PULSE 88; RESP 16; TEMP 98.1
[2024-08-29] VITALS: BP 137/84; PULSE 90; RESP 17; TEMP 98.2
[2024-08-29 04:00] VITALS: BP 145/76; PULSE 94; RESP 18; TEMP 97.5
[2024-08-29 06:05] LABS: BASOPHILS # (AUTO) 0.05 K/uL (0.00-0.20); BASOPHILS % (AUTO) 1.2 % (0.0-5.0); EOSINOPHILS # (AUTO) 0.25 K/uL (0.00-0.70); HEMATOCRIT 37.7 % (36-48); IMMATURE GRANULOCYTE ABSOLUTE 0.02 K/uL (0-1); LYMPHOCYTES # (AUTO) 1.2 K/uL (1.0-4.8); LYMPHOCYTES % (AUTO) 29.4 % (21.0-51.0); MEAN CORPUSCULAR HEMOGLOBIN 28.2 pg (27.0-33.0); MEAN CORPUSCULAR VOLUME 80.6 fL (79-99); MONOCYTES # (AUTO) 0.4 K/uL (0.1-1.0); MONOCYTES % (AUTO) 9.8 % (3.0-13.0); NEUTROPHILS # (AUTO) 2.2 K/uL (1.8-7.7); NEUTROPHILS % (AUTO) 53.1 % (40.0-77.0); PLATELET COUNT (AUTO) 244 K/uL (130-400); RED BLOOD CELL COUNT(AUTO) 4.68 MIL/uL (4.00-5.50); RED CELL DISTRIBUTION WIDTH 12.7 % (11.0-15.5); WHITE BLOOD COUNT (AUTO) 4.2 K/uL (4.8-10.8)
[2024-08-29 06:18] LABS: ALBUMIN 2.8 g/dL (3.5-5.0); BILIRUBIN,TOTAL 0.5 mg/dL (0.2-1.0); CREATININE 0.3 mg/dL (0.5-1.0); MAGNESIUM 1.8 mg/dL (1.80-2.40); POTASSIUM 4.1 mmol/L (3.5-5.1); TOTAL PROTEIN, SERUM 5.7 g/dL (6.0-8.3)
[2024-08-29 08:00] VITALS: BP 142/78; PULSE 85; RESP 18; TEMP 98; O2SAT 97
--- NOTE | 2024-08-29 10:24 | NUR ---
Nutritional f/u Note: Chart, meds, and labs Reviewed. PO intake improving 50% of meals taken. Recommend: -Continue Puree GI soft/bland diet with Magic cup and twocal w/ trays -RD to provide further recommendations based on clinical progress. -Monitor feeding tolerance, %, wt, and labs -If No BM >3days consider bowel stimulant. - Please notify RD if additional nutrition concerns arise. Addendum: 08/29/24 at [address] Amended: Links added.
--- NOTE | 2024-08-29 10:44 | HMCIMG ---
Exam Type: ABD 1VW Clinical Information: fecal impaction Comparison: None Findings: Nasogastric tube is noted with tip in place in stomach. Abdomen demonstrates no evidence of pathologic calcification or soft tissue mass. There are no radiopacities to suggest calculous disease. The intestinal gas pattern is within normal limits without evidence of dilatation to suggest obstruction or adynamic ileus. The bony structures are unremarkable. IMPRESSION: Nasogastric tube is noted with tip in place in stomach. Otherwise normal abdomen.
[2024-08-29 12:00] VITALS: BP 138/74; PULSE 80; RESP 16; TEMP 97.8
--- NOTE | 2024-08-29 13:56 | PN ---
GASTROENTEROLOGY PROGRESS NOTE Date of Visit: Aug 29, 2024 Time of Visit: 13:56 Events / Notes: This is a 74-year-old female with past medical history of cerebral palsy, bedridden, contractures, hypertension was brought in due to diffuse abdominal pain. Patient was constipated with no bowel movement for several days. She was seen by general surgery. We were consulted due to persistent constipation. She has had multiple bowel movements however KUB continues to reveal constipation. Review of Systems: CONSTITUTIONAL: No malaise or change in sensation of wellbeing. ENMT: No rhinorrhea, otorrhea, sinus pain, ear ache. CARDIOVASCULAR: No angina, palpitations, orthopnea or paroxysmal dyspnea. RESPIRATORY: No SOB. GASTROINTESTINAL: No abdominal pain, nausea, vomiting, diarrhea, hematemesis, melena or change in the patient's habitual bowel movements consistency/number. GENITOURINARY: No dysuria, hematuria or change in bladder continence. MUSCULOSKELETAL: No new muscle pain or decrease in muscular strength. No new joint swelling, redness or tenderness. SKIN: No new rash. Physical Exam: GEN: Awake, alert, oriented in person, time and place, and in no acute distress. HEENT: No sinus tenderness. Tympanic membranes were not examined. No rhinorrhea. Oral pharyngeal mucosa is pink, moist and within normal limits. Neck is supple with no cervical lymphadenopathy, thyromegaly or JVD. CHEST: Inspection, palpation and percussion of the chest were unremarkable. Lung auscultation revealed normal breath sounds bilaterally. CARDIAC: PMI is within normal limits. Heart sounds are regular. Normal S1, S2. No gallop or murmur. ABD: Soft, non-tender and not distended. No peritoneal signs on palpation. No organomegaly. Normal bowel sounds. EXT: No cyanosis or clubbing. No edema. SKIN: Intact. No rashes. JOINTS: No evidence of synovitis or acute arthritis. NEURO: Alert and oriented to name, place and person. Cranial nerve examination is unremarkable. No focal motor deficits. Normal speech. Gait is normal. Strength is normal. Vital Signs (last 8hr) Date Time Temp Pulse Resp B/P (MAP) Pulse Ox O2 Delivery O2 Flow Rate FiO2 08/29/24 12:00 97.9 80 16 138/74 100 Room Air 08/29/24 08:00 98.1 85 18 142/78 96 Room Air Laboratory: [ ] Laboratory: Test 08/29/24 12:16 08/29/24 05:49 Range/Units Whole Blood Glucose 84 70-110 MG/DL White Blood Count 4.2 L 4.8-10.8 K/uL Red Blood Count 4.68 4.00-5.50 MIL/uL Hemoglobin 13.2 12.0-16.0 g/dL Hematocrit 37.7 36-48 % Mean Corpuscular Volume 80.6 79-99 fL Mean Corpuscular Hemoglobin 28.2 27.0-33.0 pg Mean Corpuscular Hemoglobin Concent 35.0 32.0-36.0 g/dL Red Cell Distribution Width 12.7 11.0-15.5 % Platelet Count 244 130-400 K/uL Mean Platelet Volume 8.9 7.5-10.5 fL Immature Granulocyte % (Auto) 0.5 0-1 % Neutrophils (%) (Auto) 53.1 40.0-77.0 % Lymphocytes (%) (Auto) 29.4 21.0-51.0 % Monocytes (%) (Auto) 9.8 3.0-13.0 % Eosinophils (%) (Auto) 6.0 0.0-8.0 % Basophils (%) (Auto) 1.2 0.0-5.0 % Neutrophils # (Auto) 2.2 1.8-7.7 K/uL Lymphocytes # (Auto) 1.2 1.0-4.8 K/uL Monocytes # (Auto) 0.4 0.1-1.0 K/uL Eosinophils # (Auto) 0.25 0.00-0.70 K/uL Basophils # (Auto) 0.05 0.00-0.20 K/uL Absolute Immature Granulocyte (auto 0.02 0-1 K/uL Nucleated Red Blood Cells 0.0 0.0-0.19 % Sodium Level 126 L 136-145 mmol/L Potassium Level 4.1 3.5-5.1 mmol/L Chloride Level 92 L 101-111 mmol/L Carbon Dioxide Level 29 21-32 mmol/L Blood Urea Nitrogen 10 7-18 mg/dL Creatinine 0.3 L 0.5-1.0 mg/dL Glomerular Filtration Rate Calc 113 >90 mL/min Random Glucose 80 70-105 mg/dL Total Calcium 8.8 8.5-10.1 mg/dL Magnesium Level 1.80 1.80-2.40 mg/dL Total Bilirubin 0.5 0.2-1.0 mg/dL Aspartate Amino Transf (AST/SGOT) 17 10-37 U/L Alanine Aminotransferase (ALT/SGPT) 12 12-78 U/L Alkaline Phosphatase 62 50-136 U/L Total Protein 5.7 L 6.0-8.3 g/dL Albumin 2.8 L 3.5-5.0 g/dL Current Medications Medications (Trade) Dose Ordered Sig/Ricardo Route PRN Reason Start Time Stop Time Status Last Admin Dose Admin Acetaminophen (TYLenol 325MG TAB) 650 mg Q6H PRN PO FEVER/MILD PAIN LEVEL 1-3 08/24/24 22:00 09/23/24 21:59 Acetaminophen (TYLenol 650MG SUPPOSITORY) 650 mg Q6H PRN RC FEVER / MILD PAIN 1-3 IF NPO 08/24/24 22:00 09/23/24 21:59 Ceftriaxone Sodium (ROCEphine 1G INJ) 1 gm Q24H IVPB 08/25/24 13:30 09/04/24 13:29 08/28/24 12:42 1 GM Dextrose (D50w) 50 ml AD PRN IV HYPOGLYCEMIA PROTOCOL 08/24/24 22:00 09/23/24 21:59 Docusate Sodium (COLace 100MG CAP) 100 mg BID PRN PO c 08/24/24 22:00 09/23/24 21:59 Ferrous Sulfate (Ferrous Sulfate) 325 mg DAILY PO 08/26/24 09:00 09/25/24 08:59 08/29/24 10:06 325 MG Glucagon (Glucagon 1mg Kit) 1 mg AD PRN IM HYPOGLYCEMIA PROTOCOL 08/24/24 22:00 09/23/24 21:59 Glycerin (Glycerin Adult Supp) 1 supp DAILY08 RC 08/25/24 08:00 08/27/24 21:59 DC 08/27/24 13:08 1 SUPP Glycerin (Glycerin Adult Supp) 1 supp Q24H RC 08/25/24 22:00 08/25/24 02:47 DC Hydrochlorothiazide (hydroCHLOROthiazide 25MG) 12.5 mg DAILY PO 08/26/24 09:00 09/25/24 08:59 08/29/24 10:07 12.5 MG Insulin Human Regular (humuLIN R 100 UNIT/ML 3ML) INSULIN SLIDING SCAL... ACHS SQ 08/25/24 07:30 09/24/24 07:29 Labetalol HCl (TRANdate 20MG SYG) 10 mg Q2H PRN IV SBP GREATER THAN 180 08/24/24 22:00 09/23/24 21:59 Lactated Ringer's 1,000 ml @ 75 mls/hr [id number] IV 08/24/24 22:00 09/23/24 21:59 08/29/24 10:17 75 MLS/HR Lactulose (Constulose 20gm/ 30ml Udcup) 20 gm BID PO 08/25/24 09:00 08/26/24 12:00 DC 08/26/24 10:18 20 GM Lactulose (Constulose 20gm/ 30ml Udcup) 20 gm Q6H PRN PO CONSTIPATION 08/24/24 22:00 09/23/24 21:59 08/27/24 13:09 20 GM Lisinopril (Prinivil 5mg) 5 mg DAILY PO 08/26/24 09:00 09/25/24 08:59 08/29/24 10:06 5 MG Magnesium Sulfate 50 ml @ 0 mls/hr PROTOCOL PRN IV MAGNESIUM PROTOCOL 08/24/24 22:00 09/23/24 21:59 08/27/24 06:12 25 MLS/HR Ondansetron HCl (zoFRAN 4MG INJ) 4 mg Q6H PRN IVP NAUSEA/VOMITING 08/24/24 22:00 09/23/24 21:59 Pantoprazole Sodium (PROTonix 40MG INJ) 40 mg BID IVP 08/25/24 09:00 09/24/24 08:59 08/29/24 10:07 40 MG Permethrin (Elimite Cream 5%) 1 gm AD TP 08/25/24 04:00 08/25/24 04:04 DC Potassium Chloride 10 meq/ Sodium Chloride 50 ml @ 50 mls/hr PROTOCOL IV 08/24/24 22:00 08/24/24 21:58 DC Potassium Chloride 100 ml @ 50 mls/hr AD PRN IV POTASSIUM PROTOCOL 08/24/24 22:00 09/23/24 21:59 08/24/24 22:10 50 MLS/HR Potassium Chloride 100 ml @ 100 mls/hr AD PRN IV POTASSIUM PROTOCOL 08/24/24 22:00 08/24/24 21:58 DC Temazepam (restORIL 15 MG CAP) 15 mg HS PRN PO INSOMNIA/SLEEP 08/24/24 22:00 09/23/24 21:59 08/25/24 01:41 15 MG Diagnostics / Radiology: [COPY/PASTE HERE IF NO REPORTS PLEASE DELETE SECTION] Assessment: Constipation Plan: Insert NGT for golytely No colonoscopy given severe constipation Daily miralaDIONICIO Villalobos [employer] CLUTCH SPECIALIST Aug 29, 2024 13:56
--- NOTE | 2024-08-29 14:21 | PN ---
[facility] PROGRESS NOTE Date of Service: Aug 29, 2024 Time of Service: 14:[address] Pierson SUBJECTIVE: [ ] admission date: 08/24/24 PCP: Everardo Garcia MD Ms. Saeed is a 74-year-old female with history of cerebral palsy, bed ridden with limb contractures, and hypertension was [place] [facility] [place] evaluation of diffuse abdominal pain. Patient is nonverbal and is unable to furnish much history other than nodding at times. The patient had a similar presentation in the past with constipation with no bowel movement for many days. No vomiting hematemesis or melena, fever chills or rigors, nor chest pain pressure. 08/25/24 patient is seen and examined patient appears chronically ill. No family members at bedside. She is currently NPO receiving IV hydration we continue with bowel regiment. primary nurse report 2 large BM overnight. no moaning: nonverbal KUB is pending. 08/26/24 patient was seen by nurse practitioner and physician during rounding in room 410. CT abdomen/pelvis showed fecal material rectum concerning for fecal impaction. Enterocolitis versus early obstruction. UA was positive for leukocytosis. Urine culture pending. Patient continues to be on a clear liquid diet and already had three bowel movements in the past 24 hours. As per surgery no intervention at this moment. Allow diet and advance as tolerate. Patient receive two doses of 40 mEq of potassium for potassium 3.3. We will continue to monitor patient in the meantime. A.m. labs. 08/27/24 patient was seen by nurse practitioner physician during rounding in room 410. Repeated KUB showed severe constipation. At this moment we will consult GI for further assistance since any lactulose/MiraLax or enemas did not work. Patient continues to be on Rocephin for urine positive for E coli we will continue to monitor patient. A.m. labs. 08/28/24 patient was seen by nurse practitioner and physician during rounding in room 410. Patient was evaluated by the GI and at this moment they recommend GoLYTELY. RN got her orders and we will start patient on regimen. We will wait for further evaluation/recommendations of GI. Strategy Specialist spoke with GI INSULATION POWER UNIT TENDER Narcisa gallegos 08/28/2024 at 11:56 a.m.. We will continue to monitor patient in the meantime a.m. labs 08/29/24 patient was seen by nurse practitioner and physician during rounding in room 410. As per GI patient to continue GoLYTELY. Over the night patient was not able to drink the fluids NG tube was placed and the fluids will be given through the NG tube. We will continue to monitor patient in the meantime. KUB in the morning. A.m. labs. REVIEW OF SYSTEMS 12-unable to obtain ROS from patient due to patient's medical condition (Goode's palsy, nonverbal). PHYSICAL EXAM GENERAL APPEARANCE: The patient is awake, alert, and oriented, in no acute cardiopulmonary distress. NEUROLOGICAL: Cranial nerves II-XII grossly intact. Motor is 5/5 in bilateral upper and lower extremities proximal to distal. No sensory deficits. HEENT: Face is symmetric. Pupils are equal and reactive. Extraocular movements are intact. NECK: Supple. No JVD. No thyromegaly. No submental, submandibular, pre- /postauricular, occipital or supraclavicular lymphadenopathy. CHEST: Normal chest expansion. No Telemetry. LUNGS: Absence of any rales, rhonchi or any wheezing. CARDIOVASCULAR: Regular. S1 and S2 normal. No appreciable rubs, murmurs or gallops. ABDOMEN: Distended and tender. There is no rebound, voluntary guarding, or rigidity. : Deferred. No Khoury. EXTREMITIES: Non-edematous and not cyanotic. No clubbing. Good capillary refill. SKIN: No skin breakdown. Vital Signs (last 8hr) Date Time Temp Pulse Resp B/P (MAP) Pulse Ox O2 Delivery O2 Flow Rate FiO2 08/29/24 12:00 97.9 80 16 138/74 100 Room Air 08/29/24 08:00 98.1 85 18 142/78 96 Room Air LABS: Laboratory: Test 08/29/24 12:16 08/29/24 05:49 Range/Units Whole Blood Glucose 84 70-110 MG/DL White Blood Count 4.2 L 4.8-10.8 K/uL Red Blood Count 4.68 4.00-5.50 MIL/uL Hemoglobin 13.2 12.0-16.0 g/dL Hematocrit 37.7 36-48 % Mean Corpuscular Volume 80.6 79-99 fL Mean Corpuscular Hemoglobin 28.2 27.0-33.0 pg Mean Corpuscular Hemoglobin Concent 35.0 32.0-36.0 g/dL Red Cell Distribution Width 12.7 11.0-15.5 % Platelet Count 244 130-400 K/uL Mean Platelet Volume 8.9 7.5-10.5 fL Immature Granulocyte % (Auto) 0.5 0-1 % Neutrophils (%) (Auto) 53.1 40.0-77.0 % Lymphocytes (%) (Auto) 29.4 21.0-51.0 % Monocytes (%) (Auto) 9.8 3.0-13.0 % Eosinophils (%) (Auto) 6.0 0.0-8.0 % Basophils (%) (Auto) 1.2 0.0-5.0 % Neutrophils # (Auto) 2.2 1.8-7.7 K/uL Lymphocytes # (Auto) 1.2 1.0-4.8 K/uL Monocytes # (Auto) 0.4 0.1-1.0 K/uL Eosinophils # (Auto) 0.25 0.00-0.70 K/uL Basophils # (Auto) 0.05 0.00-0.20 K/uL Absolute Immature Granulocyte (auto 0.02 0-1 K/uL Nucleated Red Blood Cells 0.0 0.0-0.19 % Sodium Level 126 L 136-145 mmol/L Potassium Level 4.1 3.5-5.1 mmol/L Chloride Level 92 L 101-111 mmol/L Carbon Dioxide Level 29 21-32 mmol/L Blood Urea Nitrogen 10 7-18 mg/dL Creatinine 0.3 L 0.5-1.0 mg/dL Glomerular Filtration Rate Calc 113 >90 mL/min Random Glucose 80 70-105 mg/dL Total Calcium 8.8 8.5-10.1 mg/dL Magnesium Level 1.80 1.80-2.40 mg/dL Total Bilirubin 0.5 0.2-1.0 mg/dL Aspartate Amino Transf (AST/SGOT) 17 10-37 U/L Alanine Aminotransferase (ALT/SGPT) 12 12-78 U/L Alkaline Phosphatase 62 50-136 U/L Total Protein 5.7 L 6.0-8.3 g/dL Albumin 2.8 L 3.5-5.0 g/dL Current Medications Medications (Trade) Dose Ordered Sig/Ricardo Route PRN Reason Start Time Stop Time Status Last Admin Dose Admin Acetaminophen (TYLenol 325MG TAB) 650 mg Q6H PRN PO FEVER/MILD PAIN LEVEL 1-3 08/24/24 22:00 09/23/24 21:59 Acetaminophen (TYLenol 650MG SUPPOSITORY) 650 mg Q6H PRN RC FEVER / MILD PAIN 1-3 IF NPO 08/24/24 22:00 09/23/24 21:59 Ceftriaxone Sodium (ROCEphine 1G INJ) 1 gm Q24H IVPB 08/25/24 13:30 09/04/24 13:29 08/28/24 12:42 1 GM Dextrose (D50w) 50 ml AD PRN IV HYPOGLYCEMIA PROTOCOL 08/24/24 22:00 09/23/24 21:59 Docusate Sodium (COLace 100MG CAP) 100 mg BID PRN PO c 08/24/24 22:00 09/23/24 21:59 Ferrous Sulfate (Ferrous Sulfate) 325 mg DAILY PO 08/26/24 09:00 09/25/24 08:59 08/29/24 10:06 325 MG Glucagon (Glucagon 1mg Kit) 1 mg AD PRN IM HYPOGLYCEMIA PROTOCOL 08/24/24 22:00 09/23/24 21:59 Glycerin (Glycerin Adult Supp) 1 supp DAILY08 08/25/24 08:00 08/27/24 21:59 DC 08/27/24 13:08 1 SUPP Glycerin (Glycerin Adult Supp) 1 supp Q24H RC 08/25/24 22:00 08/25/24 02:47 DC Hydrochlorothiazide (hydroCHLOROthiazide 25MG) 12.5 mg DAILY PO 08/26/24 09:00 09/25/24 08:59 08/29/24 10:07 12.5 MG Insulin Human Regular (humuLIN R 100 UNIT/ML 3ML) INSULIN SLIDING SCAL... ACHS SQ 08/25/24 07:30 09/24/24 07:29 Labetalol HCl (TRANdate 20MG SYG) 10 mg Q2H PRN IV SBP GREATER THAN 180 08/24/24 22:00 09/23/24 21:59 Lactated Ringer's 1,000 ml @ 75 mls/hr [id number] IV 08/24/24 22:00 09/23/24 21:59 08/29/24 10:17 75 MLS/HR Lactulose (Constulose 20gm/ 30ml Udcup) 20 gm BID PO 08/25/24 09:00 08/26/24 12:00 DC 08/26/24 10:18 20 GM Lactulose (Constulose 20gm/ 30ml Udcup) 20 gm Q6H PRN PO CONSTIPATION 08/24/24 22:00 09/23/24 21:59 08/27/24 13:09 20 GM Lisinopril (Prinivil 5mg) 5 mg DAILY PO 08/26/24 09:00 09/25/24 08:59 08/29/24 10:06 5 MG Magnesium Sulfate 50 ml @ 0 mls/hr PROTOCOL PRN IV MAGNESIUM PROTOCOL 08/24/24 22:00 09/23/24 21:59 08/27/24 06:12 25 MLS/HR Ondansetron HCl (zoFRAN 4MG INJ) 4 mg Q6H PRN IVP NAUSEA/VOMITING 08/24/24 22:00 09/23/24 21:59 Pantoprazole Sodium (PROTonix 40MG INJ) 40 mg BID IVP 08/25/24 09:00 09/24/24 08:59 08/29/24 10:07 40 MG Permethrin (Elimite Cream 5%) 1 gm AD TP 08/25/24 04:00 08/25/24 04:04 DC Potassium Chloride 10 meq/ Sodium Chloride 50 ml @ 50 mls/hr PROTOCOL IV 08/24/24 22:00 08/24/24 21:58 DC Potassium Chloride 100 ml @ 50 mls/hr AD PRN IV POTASSIUM PROTOCOL 08/24/24 22:00 09/23/24 21:59 08/24/24 22:10 50 MLS/HR Potassium Chloride 100 ml @ 100 mls/hr AD PRN IV POTASSIUM PROTOCOL 08/24/24 22:00 08/24/24 21:58 DC Temazepam (restORIL 15 MG CAP) 15 mg HS PRN PO INSOMNIA/SLEEP 08/24/24 22:00 09/23/24 21:59 08/25/24 01:41 15 MG DIAGNOSTICS / RADIOLOGY: [ ] ASSESSMENT: Acute abdominal pain, POA Severe constipation/fecal impaction POA Distended, Fluid-filled loops of small bowel and colon, enterocolitis vs early obstruction Constipation with fecal impaction, POA Electrolyte derangement (Hyponatremia, hypokalemia, hypochloremia) Acute dehydration Hyperglycemia Prerenal azotemia UTI Chronic problem list: cerebral palsy, nonverbal, arm contractures, and hypertension PLAN: Consult GI for severe fecal impaction Per GI start GoLYTELY NG tube inserted as per request by GI for golytely KUB shows severe fecal impaction Repeat KUB in a.m. General surgeon consulted for the early obstruction No surgical intervention at this moment medical management only. Patient cleared on a clear liquid diet. Advance as tolerated -IV hydration with LR 75 mL an hour. Continue Rocephin CT abdomen/pelvis showed fecal material rectum concerning for fecal impaction. Enterocolitis versus early obstruction -Oxygen supplement as needed to maintain oxygen levels equal to or greater than 92% blood pressure monitoring resumed home blood pressure medications -Glucometer checks before meals and at bedtime with insulin regular sliding scale. -AM labs. -Monitor electrolytes and treat accordingly. - decubitus precaution Turn every 2 hours. -DVT and GI prophylaxis: SCDs and Protonix. ATTESTATION BY PHYSICIAN I have seen and examined the patient. I reviewed the documentation, medical decision making, and treatment plan as noted by the mid-level provider above. I agree with the findings and plan of care. DINH PIERSON MD, KATARZYNA B PRODUCTION LINE TECHNICIAN Aug 29, 2024 14:21
[2024-08-29 16:00] VITALS: BP 133/62; PULSE 91; RESP 16; TEMP 98.2
[2024-08-29] MEDS: DEXTROSE 50%-WATER 50 ML DISP.SYRIN IV PRN (16:56)
[2024-08-29 19:00] VITALS: BP 108/67; PULSE 98; RESP 18; TEMP 97.5
[2024-08-30] VITALS (7 sets, daily range): BP systolic 97–157; BP diastolic 41–93; PULSE 91–106; RESP 16–18; TEMP 96.9–97.9; O2SAT 98
[2024-08-30 04:52] LABS: BASOPHILS # (AUTO) 0.04 K/uL (0.00-0.20); BASOPHILS % (AUTO) 0.9 % (0.0-5.0); EOSINOPHILS # (AUTO) 0.19 K/uL (0.00-0.70); EOSINOPHILS % (AUTO) 4.4 % (0.0-8.0); HEMATOCRIT 33.8 % (36-48); IMMATURE GRANULOCYTE ABSOLUTE 0.01 K/uL (0-1); LYMPHOCYTES # (AUTO) 1.1 K/uL (1.0-4.8); LYMPHOCYTES % (AUTO) 24.6 % (21.0-51.0); MEAN CORPUSCULAR HEMOGLOBIN 28.4 pg (27.0-33.0); MEAN CORPUSCULAR HGB CONC 35.2 g/dL (32.0-36.0); MEAN CORPUSCULAR VOLUME 80.7 fL (79-99); MONOCYTES # (AUTO) 0.3 K/uL (0.1-1.0); MONOCYTES % (AUTO) 7.4 % (3.0-13.0); NEUTROPHILS # (AUTO) 2.7 K/uL (1.8-7.7); NEUTROPHILS % (AUTO) 62.5 % (40.0-77.0); PLATELET COUNT (AUTO) 261 K/uL (130-400); RED BLOOD CELL COUNT(AUTO) 4.19 MIL/uL (4.00-5.50); RED CELL DISTRIBUTION WIDTH 12.8 % (11.0-15.5); WHITE BLOOD COUNT (AUTO) 4.3 K/uL (4.8-10.8)
[2024-08-30 05:15] LABS: ALBUMIN 2.7 g/dL (3.5-5.0); BILIRUBIN,TOTAL 0.5 mg/dL (0.2-1.0); CREATININE 0.2 mg/dL (0.5-1.0); MAGNESIUM 1.7 mg/dL (1.80-2.40); POTASSIUM 3.4 mmol/L (3.5-5.1); TOTAL PROTEIN, SERUM 5.3 g/dL (6.0-8.3)
--- NOTE | 2024-08-30 09:10 | HMCIMG ---
ABD 1VW HISTORY: Fecal impaction COMPARISON: None FINDINGS: A frontal projection of the abdomen was obtained. Mild small bowel dilatation is seen. Fecal material is seen in the colon. Degenerative changes of the thoracolumbar spine are noted. IMPRESSION: 1. Small bowel dilatation. Fecal material is seen in the colon.
[2024-08-30] MEDS ORDERED: MAGNESIUM 2GM PREMIX 50ML 50 ML IV SCH (10:00)
[2024-08-30] MEDS: PoTASSium chloRIDE 20MEQ/100ML 100 ML IV ONE (10:52)
--- NOTE | 2024-08-30 14:00 | PN ---
[facility] PROGRESS NOTE Date of Service: Aug 30, 2024 Time of Service: 13:58 SUBJECTIVE: [ ] admission date: 08/24/24 PCP: Everardo Garcia MD Ms. Saeed is a 74-year-old female with history of cerebral palsy, bed ridden with limb contractures, and hypertension was brought to [facility] [place] for evaluation of diffuse abdominal pain. Patient is nonverbal and is unable to furnish much history other than nodding at times. The patient had a similar presentation in the past with constipation with no bowel movement for many days. No vomiting hematemesis or melena, fever chills or rigors, nor chest pain pressure. 08/25/24 patient is seen and examined patient appears chronically ill. No family members at bedside. She is currently NPO receiving IV hydration we continue bowel regiment. primary nurse report 2 large BM overnight. no moaning: nonverbal KUB is pending. 08/26/24 patient was seen by nurse practitioner and physician during rounding in room 410. CT abdomen/pelvis showed fecal material rectum concerning for fecal impaction. Enterocolitis versus early obstruction. UA was positive for leukocytosis. Urine culture pending. Patient continues to be on a clear liquid diet and already had three bowel movements in the past 24 hours. As per surgery no intervention at this moment. Allow diet and advance as tolerate. Patient receive two doses of 40 mEq of potassium for potassium 3.3. We will continue to monitor patient in the meantime. A.m. labs. 08/27/24 patient was seen by nurse practitioner physician during rounding in room 410. Repeated KUB showed severe constipation. At this moment we will consult GI for further assistance since any lactulose/MiraLax or enemas did not work. Patient continues to be on Rocephin for urine positive for E coli we will contin ue to monitor patient. A.m. labs. 08/28/24 patient was seen by nurse practitioner and physician during rounding in room 410. Patient was evaluated by the GI and at this moment they recommend GoLYTELY. RN got her orders and we will start patient on regimen. We will wait for further evaluation/recommendations of GI. Aerographer spoke with GI PROGRAMMER ANALYST Narcisa gallegos 08/28/2024 at 11:56 a.m.. We will continue to monitor patient in the meantime a.m. labs 08/29/24 patient was seen by nurse practitioner and physician during rounding in room 410. As per GI patient to continue GoLYTELY. Over the night patient was not able to drink the fluids NG tube was placed and the fluids will be given through the NG tube. We will continue to monitor patient in the meantime. KUB in the morning. A.m. labs. 08/30 patient is seen and examined at bedside, case discussed with the RN, acute events overnight, patient received GoLYTELY yesterday, had a very good bowel movement, started on clear liquid diet, tolerating well, NG tube removed. BP 108/59, afebrile, saturating normal on room air. KUB shows small bowel dilatation, fecal material in the colon. Potassium 3.4, magnesium 1.7, we will replace per electrolyte protocol. Results of urine culture showing E coli sensitive to multiple antibiotics. Continue Rocephin 1 g IV daily. Possible discharge home tomorrow. REVIEW OF SYSTEMS 12-unable to obtain ROS from patient due to patient's medical condition (Goode's palsy, nonverbal). PHYSICAL EXAM GENERAL APPEARANCE: The patient is awake, alert, and oriented, in no acute cardiopulmonary distress. NEUROLOGICAL: Cranial nerves II-XII grossly intact. Motor is 5/5 in bilateral upper and lower extremities proximal to distal. No sensory deficits. HEENT: Face is symmetric. Pupils are equal and reactive. Extraocular movements are intact. NECK: Supple. No JVD. No thyromegaly. No submental, submandibular, pre- /postauricular, occipital or supraclavicular lymphadenopathy. CHEST: Normal chest expansion. No Telemetry. LUNGS: Absence of any rales, rhonchi or any wheezing. CARDIOVASCULAR: Regular. S1 and S2 normal. No appreciable rubs, murmurs or gallops. ABDOMEN: Distended and tender. There is no rebound, voluntary guarding, or rigidity. : Deferred. No Khoury. EXTREMITIES: Non-edematous and not cyanotic. No clubbing. Good capillary refill. SKIN: No skin breakdown. Vital Signs (last 8hr) Date Time Temp Pulse Resp B/P (MAP) Pulse Ox O2 Delivery O2 Flow Rate FiO2 08/30/24 12:00 97.0 99 16 108/59 94 Room Air 08/30/24 08:00 97.5 106 18 157/93 98 Room Air LABS: Laboratory: Test 08/30/24 12:36 08/30/24 05:28 08/30/24 04:38 Range/Units Whole Blood Glucose 149 #H 70-110 MG/DL Bedside Glucose Comment Notified Nurse White Blood Count 4.3 L 4.8-10.8 K/uL Red Blood Count 4.19 4.00-5.50 MIL/uL Hemoglobin 11.9 L 12.0-16.0 g/dL Hematocrit 33.8 L 36-48 % Mean Corpuscular Volume 80.7 79-99 fL Mean Corpuscular Hemoglobin 28.4 27.0-33.0 pg Mean Corpuscular Hemoglobin Concent 35.2 32.0-36.0 g/dL Red Cell Distribution Width 12.8 11.0-15.5 % Platelet Count 261 130-400 K/uL Mean Platelet Volume 8.7 7.5-10.5 fL Immature Granulocyte % (Auto) 0.2 0-1 % Neutrophils (%) (Auto) 62.5 40.0-77.0 % Lymphocytes (%) (Auto) 24.6 21.0-51.0 % Monocytes (%) (Auto) 7.4 3.0-13.0 % Eosinophils (%) (Auto) 4.4 0.0-8.0 % Basophils (%) (Auto) 0.9 0.0-5.0 % Neutrophils # (Auto) 2.7 1.8-7.7 K/uL Lymphocytes # (Auto) 1.1 1.0-4.8 K/uL Monocytes # (Auto) 0.3 0.1-1.0 K/uL Eosinophils # (Auto) 0.19 0.00-0.70 K/uL Basophils # (Auto) 0.04 0.00-0.20 K/uL Absolute Immature Granulocyte (auto 0.01 0-1 K/uL Nucleated Red Blood Cells 0.0 0.0-0.19 % Sodium Level 131 L 136-145 mmol/L Potassium Level 3.4 L 3.5-5.1 mmol/L Chloride Level 96 L 101-111 mmol/L Carbon Dioxide Level 25 21-32 mmol/L Blood Urea Nitrogen 14 7-18 mg/dL Creatinine 0.2 L 0.5-1.0 mg/dL Glomerular Filtration Rate Calc 124 >90 mL/min Random Glucose 58 L 70-105 mg/dL Total Calcium 8.8 8.5-10.1 mg/dL Magnesium Level 1.70 L 1.80-2.40 mg/dL Total Bilirubin 0.5 0.2-1.0 mg/dL Aspartate Amino Transf (AST/SGOT) 13 10-37 U/L Alanine Aminotransferase (ALT/SGPT) 12 12-78 U/L Alkaline Phosphatase 55 50-136 U/L Total Protein 5.3 L 6.0-8.3 g/dL Albumin 2.7 L 3.5-5.0 g/dL Current Medications Medications (Trade) Dose Ordered Sig/Ricardo Route PRN Reason Start Time Stop Time Status Last Admin Dose Admin Acetaminophen (TYLenol 325MG TAB) 650 mg Q6H PRN PO FEVER/MILD PAIN LEVEL 1-3 08/24/24 22:00 09/23/24 21:59 Acetaminophen (TYLenol 650MG SUPPOSITORY) 650 mg Q6H PRN RC FEVER / MILD PAIN 1-3 IF NPO 08/24/24 22:00 09/23/24 21:59 Ceftriaxone Sodium (ROCEphine 1G INJ) 1 gm Q24H IVPB 08/25/24 13:30 09/04/24 13:29 08/30/24 12:50 1 GM Dextrose (D50w) 50 ml AD PRN IV HYPOGLYCEMIA PROTOCOL 08/24/24 22:00 09/23/24 21:59 08/30/24 06:07 50 ML Docusate Sodium (COLace 100MG CAP) 100 mg BID PRN PO c 08/24/24 22:00 09/23/24 21:59 Ferrous Sulfate (Ferrous Sulfate) 325 mg DAILY PO 08/26/24 09:00 09/25/24 08:59 08/30/24 10:51 325 MG Glucagon (Glucagon 1mg Kit) 1 mg AD PRN IM HYPOGLYCEMIA PROTOCOL 08/24/24 22:00 09/23/24 21:59 Glycerin (Glycerin Adult Supp) 1 supp DAILY08 08/25/24 08:00 08/27/24 21:59 DC 08/27/24 13:08 1 SUPP Glycerin (Glycerin Adult Supp) 1 supp Q24H RC 08/25/24 22:00 08/25/24 02:47 DC Hydrochlorothiazide (hydroCHLOROthiazide 25MG) 12.5 mg DAILY PO 08/26/24 09:00 09/25/24 08:59 08/30/24 10:51 12.5 MG Insulin Human Regular (humuLIN R 100 UNIT/ML 3ML) INSULIN SLIDING SCAL... ACHS SQ 08/25/24 07:30 09/24/24 07:29 Labetalol HCl (TRANdate 20MG SYG) 10 mg Q2H PRN IV SBP GREATER THAN 180 08/24/24 22:00 09/23/24 21:59 Lactated Ringer's 1,000 ml @ 75 mls/hr [id number] IV 08/24/24 22:00 09/23/24 21:59 08/30/24 11:37 75 MLS/HR Lactulose (Constulose 20gm/ 30ml Udcup) 20 gm BID PO 08/25/24 09:00 08/26/24 12:00 DC 08/26/24 10:18 20 GM Lactulose (Constulose 20gm/ 30ml Udcup) 20 gm Q6H PRN PO CONSTIPATION 08/24/24 22:00 09/23/24 21:59 08/27/24 13:09 20 GM Lisinopril (Prinivil 5mg) 5 mg DAILY PO 08/26/24 09:00 09/25/24 08:59 08/30/24 10:51 5 MG Magnesium Sulfate 50 ml @ 0 mls/hr PROTOCOL IV 08/30/24 10:00 09/29/24 09:59 Magnesium Sulfate 50 ml @ 0 mls/hr PROTOCOL PRN IV MAGNESIUM PROTOCOL 08/24/24 22:00 08/30/24 09:46 DC 08/30/24 06:08 25 MLS/HR Ondansetron HCl (zoFRAN 4MG INJ) 4 mg Q6H PRN IVP NAUSEA/VOMITING 08/24/24 22:00 09/23/24 21:59 Pantoprazole Sodium (PROTonix 40MG INJ) 40 mg BID IVP 08/25/24 09:00 09/24/24 08:59 08/30/24 10:51 40 MG Permethrin (Elimite Cream 5%) 1 gm AD TP 08/25/24 04:00 08/25/24 04:04 DC Potassium Chloride 10 meq/ Sodium Chloride 50 ml @ 50 mls/hr PROTOCOL IV 08/24/24 22:00 08/24/24 21:58 DC Potassium Chloride 100 ml @ 50 mls/hr AD PRN IV POTASSIUM PROTOCOL 08/24/24 22:00 09/23/24 21:59 08/24/24 22:10 50 MLS/HR Potassium Chloride 100 ml @ 100 mls/hr AD PRN IV POTASSIUM PROTOCOL 08/24/24 22:00 08/24/24 21:58 DC Temazepam (restORIL 15 MG CAP) 15 mg HS PRN PO INSOMNIA/SLEEP 08/24/24 22:00 09/23/24 21:59 08/25/24 01:41 15 MG DIAGNOSTICS / RADIOLOGY: [ ] ASSESSMENT: Acute abdominal pain, POA Severe constipation/fecal impaction POA Distended, Fluid-filled loops of small bowel and colon, enterocolitis vs early obstruction Constipation with fecal impaction, POA Electrolyte derangement (Hyponatremia, hypokalemia, hypochloremia) Acute dehydration Hyperglycemia Prerenal azotemia UTI Chronic problem list: cerebral palsy, nonverbal, arm contractures, and hypertension PLAN: patient is seen and examined at bedside, case discussed with the RN, acute events overnight, patient received GoLYTELY yesterday, had a very good bowel movement, started on clear liquid diet, tolerating well, NG tube removed. BP 108/59, afebrile, saturating normal on room air. KUB shows small bowel dilatation, fecal material in the colon. Potassium 3.4, magnesium 1.7, we will replace per electrolyte protocol. Results of urine culture showing E coli sensitive to multiple antibiotics. Continue Rocephin 1 g IV daily. NEURO: Minimize central acting medications as possible. Fall Precautions. Well lighted room through the day and minimize interruptions through the night to prevent acute delirium. PULMONARY: Supplemental 02 as needed BiPAP as necessary, for respiratory distress Titrate Fio2 to keep Spo2 > or = 90% DuoNebs and CPT as needed IS hourly while awake for pulmonary hygiene prn Out of bed to chair as tolerated Maintain aspiration precautions at all times CARDIOVASCULAR: Follow hemodynamics. Vital signs per facility protocol GI & NUTRITION: Continue nutritional support Aspirations precautions Prokinetic agents and laxatives as needed KIDNEYS & ELECTROLYTES: Strict monitoring of intake and output Daily weights Avoid nephrotoxic agents Monitor electrolytes and replace as needed Goal urine output of 30mL/hr or 0.5mL/kg/hr Medications to be dosed according to renal function. Avoid contrast if possible ENDOCRINE: Maintain blood glucose between 100-180 at all times. Insulin sliding scale for blood glucose management Hypoglycemia and hyperglycemia protocol in place INFECTIOUS DISEASE: Trend temperature, WBC and procalcitonin level Follow cultures, deescalate antibiotics as soon as possible. Panculture if new onset fever HEMATOLOGY & COAGULATION: Monitor H&H. Keep Hgb > 7 Transfuse 1 unit of PRBC for Hgb < 7 Transfuse 1 pack of platelets of platelets < 20, 000 Watch for any signs and symptoms of bleeding SKIN: Pressure ulcer prevention per facility protocol Specialty mattress as needed ORTHO/REHAB Continue PT/OT PRN: MEDICATIONS Tylenol 650 mg po every 4 hrs for fever zofran 4 mg IV every 6 hrs for n/v Hydralazine 5 mg IV every 4 hrs systolic pressure > 160 bowel regiment: lactulose 20 gm PO BID PRN constipation Supportive measures: Continue GI and DVT prophylaxis Disposition: Possible discharge home tomorrow All questions answered time spent: > 35 min DINH VEGA MD Aug 30, 2024 14:00
[2024-08-31] VITALS (7 sets, daily range): BP systolic 111–139; BP diastolic 50–76; PULSE 77–100; RESP 16–18; TEMP 97.4–99.2; O2SAT 97
[2024-08-31 04:56] LABS: HEMATOCRIT 35.7 % (36-48); MEAN CORPUSCULAR HEMOGLOBIN 28.2 pg (27.0-33.0); MEAN CORPUSCULAR HGB CONC 32.8 g/dL (32.0-36.0); RED BLOOD CELL COUNT(AUTO) 4.15 MIL/uL (4.00-5.50); RED CELL DISTRIBUTION WIDTH 13.1 % (11.0-15.5); WHITE BLOOD COUNT (AUTO) 4.6 K/uL (4.8-10.8)
[2024-08-31 05:18] LABS: ALBUMIN 2.6 g/dL (3.5-5.0); BILIRUBIN,TOTAL 0.5 mg/dL (0.2-1.0); CREATININE 0.3 mg/dL (0.5-1.0); MAGNESIUM 2.1 mg/dL (1.80-2.40); POTASSIUM 4.5 mmol/L (3.5-5.1); TOTAL PROTEIN, SERUM 5.6 g/dL (6.0-8.3)
--- NOTE | 2024-08-31 10:07 | PN ---
[facility] PROGRESS NOTE Date of Service: Aug 31, 2024 Time of Service: 10:05 SUBJECTIVE: [ ] admission date: 08/24/24 PCP: Everardo Garcia MD Ms. Saeed is a 74-year-old female with history of cerebral palsy, bed ridden with limb contractures, and hypertension was [place] [facility] [place] of diffuse abdominal pain. Patient is nonverbal and is unable to furnish much history other than nodding at times. The patient had a similar presentation in the past with constipation with no bowel movement for many days. No vomiting hematemesis or melena, fever chills or rigors, nor chest pain pressure. 08/25/24 patient is seen and examined patient appears chronically ill. No family members at bedside. She is currently NPO receiving IV hydration we continue bowel regiment. primary nurse report 2 large BM overnight. no moaning: nonverbal KUB is pending. 08/26/24 patient was seen by nurse practitioner and physician during rounding in room 410. CT abdomen/pelvis showed fecal material rectum concerning for fecal impaction. Enterocolitis versus early obstruction. UA was positive for leukocytosis. Urine culture pending. Patient continues to be on a clear liquid diet and already had three bowel movements in the past 24 hours. As per surgery no intervention at this moment. Allow diet and advance as tolerate. Patient receive two doses of 40 mEq of potassium for potassium 3.3. We will continue to monitor patient in the meantime. A.m. labs. 08/27/24 patient was seen by nurse practitioner physician during rounding in room 410. Repeated KUB showed severe constipation. At this moment we will consult GI for further assistance since any lactulose/MiraLax or enemas did not work. Patient continues to be on Rocephin for urine positive for E coli we will contin ue to monitor patient. A.m. labs. 08/28/24 patient was seen by nurse practitioner and physician during rounding in room 410. Patient was evaluated by the GI and at this moment they recommend GoLYTELY. RN got her orders and we will start patient on regimen. We will wait for further evaluation/recommendations of GI. Striping Machine Operator spoke with GI STEEL DIE ENGRAVER Narcisa gallegos 08/28/2024 at 11:56 a.m.. We will continue to monitor patient in the meantime a.m. labs 08/29/24 patient was seen by nurse practitioner and physician during rounding in room 410. As per GI patient to continue GoLYTELY. Over the night patient was not able to drink the fluids NG tube was placed and the fluids will be given through the NG tube. We will continue to monitor patient in the meantime. KUB in the morning. A.m. labs. 08/30 patient is seen and examined at bedside, case discussed with the RN, acute events overnight, patient received GoLYTELY yesterday, had a very good bowel movement, started on clear liquid diet, tolerating well, NG tube removed. BP 108/59, afebrile, saturating normal on room air. KUB shows small bowel dilatation, fecal material in the colon. Potassium 3.4, magnesium 1.7, we will replace per electrolyte protocol. Results of urine culture showing E coli sensitive to multiple antibiotics. Continue Rocephin 1 g IV daily. Possible discharge home tomorrow. 08/31 patient remains admitted to the medical floor, comfortably in bed, blood pressure 139/68, afebrile, saturating normal on room air. Hemoglobin stable at 11.7, hematocrit 35.7. Sodium of 132, potassium 4.5, BUN of 20, creatinine 0.3. The patient with a coli UTI, on Rocephin 1 g IV daily. We will request Physical therapy to evaluate the patient. We will discuss discharge plan with case management.Patient looks extremely weak, the pain from discharge to [facility] facility. No family members at bedside. REVIEW OF SYSTEMS 12-unable to obtain ROS from patient due to patient's medical condition (Goode's palsy, nonverbal). PHYSICAL EXAM GENERAL APPEARANCE: The patient is awake, alert, and oriented, in no acute cardiopulmonary distress. NEUROLOGICAL: Cranial nerves II-XII grossly intact. Motor is 5/5 in bilateral upper and lower extremities proximal to distal. No sensory deficits. HEENT: Face is symmetric. Pupils are equal and reactive. Extraocular movements are intact. NECK: Supple. No JVD. No thyromegaly. No submental, submandibular, pre- /postauricular, occipital or supraclavicular lymphadenopathy. CHEST: Normal chest expansion. No Telemetry. LUNGS: Absence of any rales, rhonchi or any wheezing. CARDIOVASCULAR: Regular. S1 and S2 normal. No appreciable rubs, murmurs or gallops. ABDOMEN: Distended and tender. There is no rebound, voluntary guarding, or rigidity. : Deferred. No Khoury. EXTREMITIES: Non-edematous and not cyanotic. No clubbing. Good capillary refill. SKIN: No skin breakdown. Vital Signs (last 8hr) Date Time Temp Pulse Resp B/P (MAP) Pulse Ox O2 Delivery O2 Flow Rate FiO2 08/31/24 08:00 97.7 77 17 139/68 97 Room Air 08/31/24 04:00 97.9 88 18 124/76 100 Room Air LABS: Laboratory: Test 08/31/24 05:43 08/31/24 04:42 08/30/24 05:28 08/30/24 04:38 Range/Units Whole Blood Glucose 84 70-110 MG/DL White Blood Count 4.6 L 4.8-10.8 K/uL Red Blood Count 4.15 4.00-5.50 MIL/uL Hemoglobin 11.7 L 12.0-16.0 g/dL Hematocrit 35.7 L 36-48 % Mean Corpuscular Volume 86.0 79-99 fL Mean Corpuscular Hemoglobin 28.2 27.0-33.0 pg Mean Corpuscular Hemoglobin Concent 32.8 32.0-36.0 g/dL Red Cell Distribution Width 13.1 11.0-15.5 % Platelet Count 292 130-400 K/uL Mean Platelet Volume 9.7 7.5-10.5 fL Nucleated Red Blood Cells 0.0 0.0-0.19 % Sodium Level 132 L 136-145 mmol/L Potassium Level 4.5 3.5-5.1 mmol/L Chloride Level 96 L 101-111 mmol/L Carbon Dioxide Level 33 H 21-32 mmol/L Blood Urea Nitrogen 20 H 7-18 mg/dL Creatinine 0.3 L 0.5-1.0 mg/dL Glomerular Filtration Rate Calc 113 >90 mL/min Random Glucose 84 70-105 mg/dL Total Calcium 8.5 8.5-10.1 mg/dL Magnesium Level 2.10 1.80-2.40 mg/dL Total Bilirubin 0.5 0.2-1.0 mg/dL Aspartate Amino Transf (AST/SGOT) 24 10-37 U/L Alanine Aminotransferase (ALT/SGPT) 14 12-78 U/L Alkaline Phosphatase 57 50-136 U/L Total Protein 5.6 L 6.0-8.3 g/dL Albumin 2.6 L 3.5-5.0 g/dL Bedside Glucose Comment Notified Nurse Immature Granulocyte % (Auto) 0.2 0-1 % Neutrophils (%) (Auto) 62.5 40.0-77.0 % Lymphocytes (%) (Auto) 24.6 21.0-51.0 % Monocytes (%) (Auto) 7.4 3.0-13.0 % Eosinophils (%) (Auto) 4.4 0.0-8.0 % Basophils (%) (Auto) 0.9 0.0-5.0 % Neutrophils # (Auto) 2.7 1.8-7.7 K/uL Lymphocytes # (Auto) 1.1 1.0-4.8 K/uL Monocytes # (Auto) 0.3 0.1-1.0 K/uL Eosinophils # (Auto) 0.19 0.00-0.70 K/uL Basophils # (Auto) 0.04 0.00-0.20 K/uL Absolute Immature Granulocyte (auto 0.01 0-1 K/uL Current Medications Medications (Trade) Dose Ordered Sig/Ricardo Route PRN Reason Start Time Stop Time Status Last Admin Dose Admin Acetaminophen (TYLenol 325MG TAB) 650 mg Q6H PRN PO FEVER/MILD PAIN LEVEL 1-3 08/24/24 22:00 09/23/24 21:59 Acetaminophen (TYLenol 650MG SUPPOSITORY) 650 mg Q6H PRN RC FEVER / MILD PAIN 1-3 IF NPO 08/24/24 22:00 09/23/24 21:59 Ceftriaxone Sodium (ROCEphine 1G INJ) 1 gm Q24H IVPB 08/25/24 13:30 09/04/24 13:29 08/30/24 12:50 1 GM Dextrose (D50w) 50 ml AD PRN IV HYPOGLYCEMIA PROTOCOL 08/24/24 22:00 09/23/24 21:59 08/30/24 06:07 50 ML Docusate Sodium (COLace 100MG CAP) 100 mg BID PRN PO c 08/24/24 22:00 09/23/24 21:59 Ferrous Sulfate (Ferrous Sulfate) 325 mg DAILY PO 08/26/24 09:00 09/25/24 08:59 08/31/24 09:33 325 MG Glucagon (Glucagon 1mg Kit) 1 mg AD PRN IM HYPOGLYCEMIA PROTOCOL 08/24/24 22:00 09/23/24 21:59 Glycerin (Glycerin Adult Supp) 1 supp DAILY08 08/25/24 08:00 08/27/24 21:59 DC 08/27/24 13:08 1 SUPP Glycerin (Glycerin Adult Supp) 1 supp Q24H 08/25/24 22:00 08/25/24 02:47 DC Hydrochlorothiazide (hydroCHLOROthiazide 25MG) 12.5 mg DAILY PO 08/26/24 09:00 09/25/24 08:59 08/31/24 09:32 12.5 MG Insulin Human Regular (humuLIN R 100 UNIT/ML 3ML) INSULIN SLIDING SCAL... ACHS SQ 08/25/24 07:30 09/24/24 07:29 Labetalol HCl (TRANdate 20MG SYG) 10 mg Q2H PRN IV SBP GREATER THAN 180 08/24/24 22:00 09/23/24 21:59 Lactated Ringer's 1,000 ml @ 75 mls/hr [id number] IV 08/24/24 22:00 08/30/24 17:51 DC 08/30/24 11:37 75 MLS/HR Lactulose (Constulose 20gm/ 30ml Udcup) 20 gm BID PO 08/25/24 09:00 08/26/24 12:00 DC 08/26/24 10:18 20 GM Lactulose (Constulose 20gm/ 30ml Udcup) 20 gm Q6H PRN PO CONSTIPATION 08/24/24 22:00 09/23/24 21:59 08/27/24 13:09 20 GM Lisinopril (Prinivil 5mg) 5 mg DAILY PO 08/26/24 09:00 09/25/24 08:59 08/31/24 09:32 5 MG Magnesium Sulfate 50 ml @ 0 mls/hr PROTOCOL IV 08/30/24 10:00 09/29/24 09:59 Magnesium Sulfate 50 ml @ 0 mls/hr PROTOCOL PRN IV MAGNESIUM PROTOCOL 08/24/24 22:00 08/30/24 09:46 DC 08/30/24 06:08 25 MLS/HR Ondansetron HCl (zoFRAN 4MG INJ) 4 mg Q6H PRN IVP NAUSEA/VOMITING 08/24/24 22:00 09/23/24 21:59 Pantoprazole Sodium (PROTonix 40MG INJ) 40 mg BID IVP 08/25/24 09:00 09/24/24 08:59 08/31/24 09:33 40 MG Permethrin (Elimite Cream 5%) 1 gm AD TP 08/25/24 04:00 08/25/24 04:04 DC Potassium Chloride 10 meq/ Sodium Chloride 50 ml @ 50 mls/hr PROTOCOL IV 08/24/24 22:00 08/24/24 21:58 DC Potassium Chloride 100 ml @ 50 mls/hr AD PRN IV POTASSIUM PROTOCOL 08/24/24 22:00 09/23/24 21:59 08/24/24 22:10 50 MLS/HR Potassium Chloride 100 ml @ 100 mls/hr AD PRN IV POTASSIUM PROTOCOL 08/24/24 22:00 08/24/24 21:58 DC Temazepam (restORIL 15 MG CAP) 15 mg HS PRN PO INSOMNIA/SLEEP 08/24/24 22:00 09/23/24 21:59 08/25/24 01:41 15 MG DIAGNOSTICS / RADIOLOGY: [ ] ASSESSMENT: Acute abdominal pain, POA Severe constipation/fecal impaction POA Distended, Fluid-filled loops of small bowel and colon, enterocolitis vs early obstruction Constipation with fecal impaction, POA Electrolyte derangement (Hyponatremia, hypokalemia, hypochloremia) Acute dehydration Hyperglycemia Prerenal azotemia UTI Chronic problem list: cerebral palsy, nonverbal, arm contractures, and hypertension PLAN: patient remains admitted to the medical floor, blood pressure 139/68, afebrile, saturating normal on room air. Hemoglobin stable at 11.7, hematocrit 35.7. Sodium of 132, potassium 4.5, BUN of 20, creatinine 0.3. The patient with a coli UTI, on Rocephin 1 g IV daily. We will request Physical therapy to evaluate the patient. We will discuss discharge plan with case management. Patient looks extremely weak, the pain from discharge to correction facility NEURO: Minimize central acting medications as possible. Fall Precautions. Well lighted room through the day and minimize interruptions through the night to prevent acute delirium. PULMONARY: Supplemental 02 as needed BiPAP as necessary, for respiratory distress Titrate Fio2 to keep Spo2 > or = 90% DuoNebs and CPT as needed IS hourly while awake for pulmonary hygiene prn Out of bed to chair as tolerated Maintain aspiration precautions at all times CARDIOVASCULAR: Follow hemodynamics. Vital signs per facility protocol GI & NUTRITION: Continue nutritional support Aspirations precautions Prokinetic agents and laxatives as needed KIDNEYS & ELECTROLYTES: Strict monitoring of intake and output Daily weights Avoid nephrotoxic agents Monitor electrolytes and replace as needed Goal urine output of 30mL/hr or 0.5mL/kg/hr Medications to be dosed according to renal function. Avoid contrast if possible ENDOCRINE: Maintain blood glucose between 100-180 at all times. Insulin sliding scale for blood glucose management Hypoglycemia and hyperglycemia protocol in place INFECTIOUS DISEASE: Trend temperature, WBC and procalcitonin level Follow cultures, deescalate antibiotics as soon as possible. Panculture if new onset fever HEMATOLOGY & COAGULATION: Monitor H&H. Keep Hgb > 7 Transfuse 1 unit of PRBC for Hgb < 7 Transfuse 1 pack of platelets of platelets < 20, 000 Watch for any signs and symptoms of bleeding SKIN: Pressure ulcer prevention per facility protocol Specialty mattress as needed ORTHO/REHAB Continue PT/OT PRN: MEDICATIONS Tylenol 650 mg po every 4 hrs for fever zofran 4 mg IV every 6 hrs for n/v Hydralazine 5 mg IV every 4 hrs systolic pressure > 160 bowel regiment: lactulose 20 gm PO BID PRN constipation Supportive measures: Continue GI and DVT prophylaxis Disposition: Possible discharge home tomorrow All questions answered time spent: > 35 min DINH VEGA MD Aug 31, 2024 10:06
[2024-09-01 00:10] VITALS: BP 137/68; PULSE 97; RESP 18; TEMP 97.4
[2024-09-01 04:00] VITALS: BP 112/78; PULSE 81; RESP 18; TEMP 97.7
[2024-09-01 04:07] LABS: HEMATOCRIT 34.8 % (36-48); MEAN CORPUSCULAR HEMOGLOBIN 28.1 pg (27.0-33.0); MEAN CORPUSCULAR HGB CONC 33.6 g/dL (32.0-36.0); MEAN CORPUSCULAR VOLUME 83.7 fL (79-99); RED BLOOD CELL COUNT(AUTO) 4.16 MIL/uL (4.00-5.50); RED CELL DISTRIBUTION WIDTH 13.1 % (11.0-15.5); WHITE BLOOD COUNT (AUTO) 4.7 K/uL (4.8-10.8)
[2024-09-01 04:27] LABS: ALBUMIN 2.5 g/dL (3.5-5.0); BILIRUBIN,TOTAL 0.2 mg/dL (0.2-1.0); CREATININE 0.4 mg/dL (0.5-1.0); MAGNESIUM 1.9 mg/dL (1.80-2.40); POTASSIUM 4.4 mmol/L (3.5-5.1); TOTAL PROTEIN, SERUM 5.5 g/dL (6.0-8.3)
--- NOTE | 2024-09-01 07:06 | NUR ---
REPORT GIVEN TO NURSE GODWIN RN PT STABLE, VS STABLE WILL CONT TO MONITOR
[2024-09-01 08:00] VITALS: O2SAT 96
[2024-09-01 08:14] VITALS: BP 141/68; PULSE 71; RESP 16; TEMP 98.4
--- NOTE | 2024-09-01 08:15 | PN ---
GASTROENTEROLOGY PROGRESS NOTE Date of Visit: Sep 01, 2024 Time of Visit: 08:15 Events / Notes: This is a 74-year-old female with past medical history of cerebral palsy, bedridden, contractures, hypertension was brought in due to diffuse abdominal pain. Patient was constipated with no bowel movement for several days. She was seen by general surgery. We were consulted due to persistent constipation. She has had multiple bowel movements however KUB continues to reveal constipation. Review of Systems: CONSTITUTIONAL: No malaise or change in sensation of wellbeing. ENMT: No rhinorrhea, otorrhea, sinus pain, ear ache. CARDIOVASCULAR: No angina, palpitations, orthopnea or paroxysmal dyspnea. RESPIRATORY: No SOB. GASTROINTESTINAL: No abdominal pain, nausea, vomiting, diarrhea, hematemesis, melena or change in the patient's habitual bowel movements consistency/number. GENITOURINARY: No dysuria, hematuria or change in bladder continence. MUSCULOSKELETAL: No new muscle pain or decrease in muscular strength. No new joint swelling, redness or tenderness. SKIN: No new rash. Physical Exam: GEN: Awake, alert, oriented in person, time and place, and in no acute distress. HEENT: No sinus tenderness. Tympanic membranes were not examined. No rhinorrhea. Oral pharyngeal mucosa is pink, moist and within normal limits. Neck is supple with no cervical lymphadenopathy, thyromegaly or JVD. CHEST: Inspection, palpation and percussion of the chest were unremarkable. Lung auscultation revealed normal breath sounds bilaterally. CARDIAC: PMI is within normal limits. Heart sounds are regular. Normal S1, S2. No gallop or murmur. ABD: Soft, non-tender and not distended. No peritoneal signs on palpation. No organomegaly. Normal bowel sounds. EXT: No cyanosis or clubbing. No edema. SKIN: Intact. No rashes. JOINTS: No evidence of synovitis or acute arthritis. NEURO: Alert and oriented to name, place and person. Cranial nerve examination is unremarkable. No focal motor deficits. Normal speech. Gait is normal. Strength is normal. Vital Signs (last 8hr) Date Time Temp Pulse Resp B/P (MAP) Pulse Ox O2 Delivery O2 Flow Rate FiO2 09/01/24 08:14 98.4 71 16 141/68 96 Room Air 09/01/24 04:00 97.7 81 18 112/78 100 Room Air Laboratory: [ ] Laboratory: Test 09/01/24 05:34 09/01/24 03:57 Range/Units Whole Blood Glucose 90 70-110 MG/DL White Blood Count 4.7 L 4.8-10.8 K/uL Red Blood Count 4.16 4.00-5.50 MIL/uL Hemoglobin 11.7 L 12.0-16.0 g/dL Hematocrit 34.8 L 36-48 % Mean Corpuscular Volume 83.7 79-99 fL Mean Corpuscular Hemoglobin 28.1 27.0-33.0 pg Mean Corpuscular Hemoglobin Concent 33.6 32.0-36.0 g/dL Red Cell Distribution Width 13.1 11.0-15.5 % Platelet Count 247 130-400 K/uL Mean Platelet Volume 8.6 7.5-10.5 fL Nucleated Red Blood Cells 0.0 0.0-0.19 % Sodium Level 130 L 136-145 mmol/L Potassium Level 4.4 3.5-5.1 mmol/L Chloride Level 96 L 101-111 mmol/L Carbon Dioxide Level 31 21-32 mmol/L Blood Urea Nitrogen 25 H 7-18 mg/dL Creatinine 0.4 L 0.5-1.0 mg/dL Glomerular Filtration Rate Calc 105 >90 mL/min Random Glucose 94 70-105 mg/dL Total Calcium 8.6 8.5-10.1 mg/dL Magnesium Level 1.90 1.80-2.40 mg/dL Total Bilirubin 0.2 # 0.2-1.0 mg/dL Aspartate Amino Transf (AST/SGOT) 10 10-37 U/L Alanine Aminotransferase (ALT/SGPT) 14 12-78 U/L Alkaline Phosphatase 68 50-136 U/L Total Protein 5.5 L 6.0-8.3 g/dL Albumin 2.5 L 3.5-5.0 g/dL Current Medications Medications (Trade) Dose Ordered Sig/Ricardo Route PRN Reason Start Time Stop Time Status Last Admin Dose Admin Acetaminophen (TYLenol 325MG TAB) 650 mg Q6H PRN PO FEVER/MILD PAIN LEVEL 1-3 08/24/24 22:00 09/23/24 21:59 Acetaminophen (TYLenol 650MG SUPPOSITORY) 650 mg Q6H PRN RC FEVER / MILD PAIN 1-3 IF NPO 08/24/24 22:00 09/23/24 21:59 Ceftriaxone Sodium (ROCEphine 1G INJ) 1 gm Q24H IVPB 08/25/24 13:30 09/04/24 13:29 08/31/24 14:35 1 GM Dextrose (D50w) 50 ml AD PRN IV HYPOGLYCEMIA PROTOCOL 08/24/24 22:00 09/23/24 21:59 08/30/24 06:07 50 ML Docusate Sodium (COLace 100MG CAP) 100 mg BID PRN PO c 08/24/24 22:00 09/23/24 21:59 Ferrous Sulfate (Ferrous Sulfate) 325 mg DAILY PO 08/26/24 09:00 09/25/24 08:59 08/31/24 09:33 325 MG Glucagon (Glucagon 1mg Kit) 1 mg AD PRN IM HYPOGLYCEMIA PROTOCOL 08/24/24 22:00 09/23/24 21:59 Glycerin (Glycerin Adult Supp) 1 supp DAILY08 08/25/24 08:00 08/27/24 21:59 DC 08/27/24 13:08 1 SUPP Glycerin (Glycerin Adult Supp) 1 supp Q24H RC 08/25/24 22:00 08/25/24 02:47 DC Hydrochlorothiazide (hydroCHLOROthiazide 25MG) 12.5 mg DAILY PO 08/26/24 09:00 09/25/24 08:59 08/31/24 09:32 12.5 MG Insulin Human Regular (humuLIN R 100 UNIT/ML 3ML) INSULIN SLIDING SCAL... ACHS SQ 08/25/24 07:30 09/24/24 07:29 Labetalol HCl (TRANdate 20MG SYG) 10 mg Q2H PRN IV SBP GREATER THAN 180 08/24/24 22:00 09/23/24 21:59 Lactated Ringer's 1,000 ml @ 75 mls/hr [id number] IV 08/24/24 22:00 08/30/24 17:51 DC 08/30/24 11:37 75 MLS/HR Lactulose (Constulose 20gm/ 30ml Udcup) 20 gm BID PO 08/25/24 09:00 08/26/24 12:00 DC 08/26/24 10:18 20 GM Lactulose (Constulose 20gm/ 30ml Udcup) 20 gm Q6H PRN PO CONSTIPATION 08/24/24 22:00 09/23/24 21:59 08/27/24 13:09 20 GM Lisinopril (Prinivil 5mg) 5 mg DAILY PO 08/26/24 09:00 09/25/24 08:59 08/31/24 09:32 5 MG Magnesium Sulfate 50 ml @ 0 mls/hr PROTOCOL IV 08/30/24 10:00 09/29/24 09:59 Magnesium Sulfate 50 ml @ 0 mls/hr PROTOCOL PRN IV MAGNESIUM PROTOCOL 08/24/24 22:00 08/30/24 09:46 DC 08/30/24 06:08 25 MLS/HR Ondansetron HCl (zoFRAN 4MG INJ) 4 mg Q6H PRN IVP NAUSEA/VOMITING 08/24/24 22:00 09/23/24 21:59 Pantoprazole Sodium (PROTonix 40MG INJ) 40 mg BID IVP 08/25/24 09:00 09/24/24 08:59 08/31/24 20:25 40 MG Permethrin (Elimite Cream 5%) 1 gm AD TP 08/25/24 04:00 08/25/24 04:04 DC Potassium Chloride 10 meq/ Sodium Chloride 50 ml @ 50 mls/hr PROTOCOL IV 08/24/24 22:00 08/24/24 21:58 DC Potassium Chloride 100 ml @ 50 mls/hr AD PRN IV POTASSIUM PROTOCOL 08/24/24 22:00 09/23/24 21:59 08/24/24 22:10 50 MLS/HR Potassium Chloride 100 ml @ 100 mls/hr AD PRN IV POTASSIUM PROTOCOL 08/24/24 22:00 08/24/24 21:58 DC Temazepam (restORIL 15 MG CAP) 15 mg HS PRN PO INSOMNIA/SLEEP 08/24/24 22:00 09/23/24 21:59 08/25/24 01:41 15 MG Diagnostics / Radiology: [COPY/PASTE HERE IF NO REPORTS PLEASE DELETE SECTION] Assessment: Constipation Plan: Insert NGT for golytely No colonoscopy given severe constipation Daily mirDIONICIO Vazquez MATERIAL CHASER Sep 01, 2024 08:15
--- NOTE | 2024-09-01 10:08 | PN ---
[facility] PROGRESS NOTE Date of Service: Sep 01, 2024 Time of Service: 10:06 SUBJECTIVE: [ ] admission date: 08/24/24 PCP: Everardo Garcia MD Ms. Saeed is a 74-year-old female with history of cerebral palsy, bed ridden with limb contractures, and hypertension was brought to [facility] for evaluation of diffuse abdominal pain. Patient is nonverbal and is unable to furnish much history other than nodding at times. The patient had a similar presentation in the past with constipation with no bowel movement for many days. No vomiting hematemesis or melena, fever chills or rigors, nor chest pain pressure. 08/25/24 patient is seen and examined patient appears chronically ill. No family members at bedside. She is currently NPO receiving IV hydration we continue bowel regiment. primary nurse report 2 large BM overnight. no moaning: nonverbal KUB is pending. 08/26/24 patient was seen by nurse practitioner and physician during rounding in room 410. CT abdomen/pelvis showed fecal material rectum concerning for fecal impaction. Enterocolitis versus early obstruction. UA was positive for leukocytosis. Urine culture pending. Patient continues to be on a clear liquid diet and already had three bowel movements in the past 24 hours. As per surgery no intervention at this moment. Allow diet and advance as tolerate. Patient receive two doses of 40 mEq of potassium for potassium 3.3. We will continue to monitor patient in the meantime. A.m. labs. 08/27/24 patient was seen by nurse practitioner physician during rounding in room 410. Repeated KUB showed severe constipation. At this moment we will consult GI for further assistance since any lactulose/MiraLax or enemas did not work. Patient continues to be on Rocephin for urine positive for E coli we will contin ue to monitor patient. A.m. labs. 08/28/24 patient was seen by nurse practitioner and physician during rounding in room 410. Patient was evaluated by the GI and at this moment they recommend GoLYTELY. RN got her orders and we will start patient on regimen. We will wait for further evaluation/recommendations of GI. [employer]sembler [employer]yl[employer] spoke with GI SEO ENGINEER Narcisa gallegos 08/28/2024 at 11:56 a.m.. We will continue to monitor patient in the meantime a.m. labs 08/29/24 patient was seen by nurse practitioner and physician during rounding in room 410. As per GI patient to continue GoLYTELY. Over the night patient was not able to drink the fluids NG tube was placed and the fluids will be given through the NG tube. We will continue to monitor patient in the meantime. KUB in the morning. A.m. labs. 08/30 patient is seen and examined at bedside, case discussed with the RN, acute events overnight, patient received GoLYTELY yesterday, had a very good bowel movement, started on clear liquid diet, tolerating well, NG tube removed. BP 108/59, afebrile, saturating normal on room air. KUB shows small bowel dilatation, fecal material in the colon. Potassium 3.4, magnesium 1.7, we will replace per electrolyte protocol. Results of urine culture showing E coli sensitive to multiple antibiotics. Continue Rocephin 1 g IV daily. Possible discharge home tomorrow. 08/31 patient remains admitted to the medical floor, comfortably in bed, blood pressure 139/68, afebrile, saturating normal on room air. Hemoglobin stable at 11.7, hematocrit 35.7. Sodium of 132, potassium 4.5, BUN of 20, creatinine 0.3. The patient with a coli UTI, on Rocephin 1 g IV daily. We will request Physical therapy to evaluate the patient. We will discuss discharge plan with case management.Patient looks extremely weak, the pain from discharge to [facility]. No family members at bedside. 09/01 patient remains admitted to the medical floor, hemodynamically stable, BP 141/68, afebrile, saturating normal on room air, has been having good bowel movement per discussion with the RN, stable hemoglobin at 11.7, hematocrit 34.8, CMP is unremarkable, we will discuss discharge plan with case management today, possible DC plan today. Patient lives with her niece per my discussion with the RN. REVIEW OF SYSTEMS 12-unable to obtain ROS from patient due to patient's medical condition (Goode's palsy, nonverbal). PHYSICAL EXAM GENERAL APPEARANCE: The patient is awake, alert, and oriented, in no acute cardiopulmonary distress. NEUROLOGICAL: Cranial nerves II-XII grossly intact. Motor is 5/5 in bilateral upper and lower extremities proximal to distal. No sensory deficits. HEENT: Face is symmetric. Pupils are equal and reactive. Extraocular movements are intact. NECK: Supple. No JVD. No thyromegaly. No submental, submandibular, pre- /postauricular, occipital or supraclavicular lymphadenopathy. CHEST: Normal chest expansion. No Telemetry. LUNGS: Absence of any rales, rhonchi or any wheezing. CARDIOVASCULAR: Regular. S1 and S2 normal. No appreciable rubs, murmurs or gallops. ABDOMEN: Distended and tender. There is no rebound, voluntary guarding, or rigidity. : Deferred. No Khoury. EXTREMITIES: Non-edematous and not cyanotic. No clubbing. Good capillary refill. SKIN: No skin breakdown. Vital Signs (last 8hr) Date Time Temp Pulse Resp B/P (MAP) Pulse Ox O2 Delivery O2 Flow Rate FiO2 09/01/24 08:14 98.4 71 16 141/68 96 Room Air 09/01/24 04:00 97.7 81 18 112/78 100 Room Air LABS: Laboratory: Test 09/01/24 05:34 09/01/24 03:57 Range/Units Whole Blood Glucose 90 70-110 MG/DL White Blood Count 4.7 L 4.8-10.8 K/uL Red Blood Count 4.16 4.00-5.50 MIL/uL Hemoglobin 11.7 L 12.0-16.0 g/dL Hematocrit 34.8 L 36-48 % Mean Corpuscular Volume 83.7 79-99 fL Mean Corpuscular Hemoglobin 28.1 27.0-33.0 pg Mean Corpuscular Hemoglobin Concent 33.6 32.0-36.0 g/dL Red Cell Distribution Width 13.1 11.0-15.5 % Platelet Count 247 130-400 K/uL Mean Platelet Volume 8.6 7.5-10.5 fL Nucleated Red Blood Cells 0.0 0.0-0.19 % Sodium Level 130 L 136-145 mmol/L Potassium Level 4.4 3.5-5.1 mmol/L Chloride Level 96 L 101-111 mmol/L Carbon Dioxide Level 31 21-32 mmol/L Blood Urea Nitrogen 25 H 7-18 mg/dL Creatinine 0.4 L 0.5-1.0 mg/dL Glomerular Filtration Rate Calc 105 >90 mL/min Random Glucose 94 70-105 mg/dL Total Calcium 8.6 8.5-10.1 mg/dL Magnesium Level 1.90 1.80-2.40 mg/dL Total Bilirubin 0.2 # 0.2-1.0 mg/dL Aspartate Amino Transf (AST/SGOT) 10 10-37 U/L Alanine Aminotransferase (ALT/SGPT) 14 12-78 U/L Alkaline Phosphatase 68 50-136 U/L Total Protein 5.5 L 6.0-8.3 g/dL Albumin 2.5 L 3.5-5.0 g/dL Current Medications Medications (Trade) Dose Ordered Sig/Ricardo Route PRN Reason Start Time Stop Time Status Last Admin Dose Admin Acetaminophen (TYLenol 325MG TAB) 650 mg Q6H PRN PO FEVER/MILD PAIN LEVEL 1-3 08/24/24 22:00 09/23/24 21:59 Acetaminophen (TYLenol 650MG SUPPOSITORY) 650 mg Q6H PRN RC FEVER / MILD PAIN 1-3 IF NPO 08/24/24 22:00 09/23/24 21:59 Ceftriaxone Sodium (ROCEphine 1G INJ) 1 gm Q24H IVPB 08/25/24 13:30 09/04/24 13:29 08/31/24 14:35 1 GM Dextrose (D50w) 50 ml AD PRN IV HYPOGLYCEMIA PROTOCOL 08/24/24 22:00 09/23/24 21:59 08/30/24 06:07 50 ML Docusate Sodium (COLace 100MG CAP) 100 mg BID PRN PO c 08/24/24 22:00 09/23/24 21:59 Ferrous Sulfate (Ferrous Sulfate) 325 mg DAILY PO 08/26/24 09:00 09/25/24 08:59 09/01/24 08:56 325 MG Glucagon (Glucagon 1mg Kit) 1 mg AD PRN IM HYPOGLYCEMIA PROTOCOL 08/24/24 22:00 09/23/24 21:59 Glycerin (Glycerin Adult Supp) 1 supp DAILY08 08/25/24 08:00 08/27/24 21:59 DC 08/27/24 13:08 1 SUPP Glycerin (Glycerin Adult Supp) 1 supp Q24H RC 08/25/24 22:00 08/25/24 02:47 DC Hydrochlorothiazide (hydroCHLOROthiazide 25MG) 12.5 mg DAILY PO 08/26/24 09:00 09/25/24 08:59 09/01/24 08:56 12.5 MG Insulin Human Regular (humuLIN R 100 UNIT/ML 3ML) INSULIN SLIDING SCAL... ACHS SQ 08/25/24 07:30 09/24/24 07:29 Labetalol HCl (TRANdate 20MG SYG) 10 mg Q2H PRN IV SBP GREATER THAN 180 08/24/24 22:00 09/23/24 21:59 Lactated Ringer's 1,000 ml @ 75 mls/hr [id number] IV 08/24/24 22:00 08/30/24 17:51 DC 08/30/24 11:37 75 MLS/HR Lactulose (Constulose 20gm/ 30ml Udcup) 20 gm BID PO 08/25/24 09:00 08/26/24 12:00 DC 08/26/24 10:18 20 GM Lactulose (Constulose 20gm/ 30ml Udcup) 20 gm Q6H PRN PO CONSTIPATION 08/24/24 22:00 09/23/24 21:59 08/27/24 13:09 20 GM Lisinopril (Prinivil 5mg) 5 mg DAILY PO 08/26/24 09:00 09/25/24 08:59 09/01/24 08:56 5 MG Magnesium Sulfate 50 ml @ 0 mls/hr PROTOCOL IV 08/30/24 10:00 09/29/24 09:59 Magnesium Sulfate 50 ml @ 0 mls/hr PROTOCOL PRN IV MAGNESIUM PROTOCOL 08/24/24 22:00 08/30/24 09:46 DC 08/30/24 06:08 25 MLS/HR Ondansetron HCl (zoFRAN 4MG INJ) 4 mg Q6H PRN IVP NAUSEA/VOMITING 08/24/24 22:00 09/23/24 21:59 Pantoprazole Sodium (PROTonix 40MG INJ) 40 mg BID IVP 08/25/24 09:00 09/24/24 08:59 08/31/24 20:25 40 MG Permethrin (Elimite Cream 5%) 1 gm AD TP 08/25/24 04:00 08/25/24 04:04 DC Potassium Chloride 10 meq/ Sodium Chloride 50 ml @ 50 mls/hr PROTOCOL IV 08/24/24 22:00 08/24/24 21:58 DC Potassium Chloride 100 ml @ 50 mls/hr AD PRN IV POTASSIUM PROTOCOL 08/24/24 22:00 09/23/24 21:59 08/24/24 22:10 50 MLS/HR Potassium Chloride 100 ml @ 100 mls/hr AD PRN IV POTASSIUM PROTOCOL 08/24/24 22:00 08/24/24 21:58 DC Temazepam (restORIL 15 MG CAP) 15 mg HS PRN PO INSOMNIA/SLEEP 08/24/24 22:00 09/23/24 21:59 08/25/24 01:41 15 MG DIAGNOSTICS / RADIOLOGY: [ ] ASSESSMENT: Acute abdominal pain, POA Severe constipation/fecal impaction POA Distended, Fluid-filled loops of small bowel and colon, enterocolitis vs early obstruction Constipation with fecal impaction, POA Electrolyte derangement (Hyponatremia, hypokalemia, hypochloremia) Acute dehydration Hyperglycemia Prerenal azotemia UTI Chronic problem list: cerebral palsy, nonverbal, arm contractures, and hypertension PLAN: patient remains admitted to the medical floor, hemodynamically stable, BP 141/68, afebrile, saturating normal on room air, has been having good bowel movement per discussion with the RN, stable hemoglobin at 11.7, hematocrit 34.8, CMP is unremarkable, we will discuss discharge plan with case management today, possible DC plan today. Patient lives with her niece per my discussion with the RN. NEURO: Minimize central acting medications as possible. Fall Precautions. Well lighted room through the day and minimize interruptions through the night to prevent acute delirium. PULMONARY: Supplemental 02 as needed BiPAP as necessary, for respiratory distress Titrate Fio2 to keep Spo2 > or = 90% DuoNebs and CPT as needed IS hourly while awake for pulmonary hygiene prn Out of bed to chair as tolerated Maintain aspiration precautions at all times CARDIOVASCULAR: Follow hemodynamics. Vital signs per facility protocol GI & NUTRITION: Continue nutritional support Aspirations precautions Prokinetic agents and laxatives as needed KIDNEYS & ELECTROLYTES: Strict monitoring of intake and output Daily weights Avoid nephrotoxic agents Monitor electrolytes and replace as needed Goal urine output of 30mL/hr or 0.5mL/kg/hr Medications to be dosed according to renal function. Avoid contrast if possible ENDOCRINE: Maintain blood glucose between 100-180 at all times. Insulin sliding scale for blood glucose management Hypoglycemia and hyperglycemia protocol in place INFECTIOUS DISEASE: Trend temperature, WBC and procalcitonin level Follow cultures, deescalate antibiotics as soon as possible. Panculture if new onset fever HEMATOLOGY & COAGULATION: Monitor H&H. Keep Hgb > 7 Transfuse 1 unit of PRBC for Hgb < 7 Transfuse 1 pack of platelets of platelets < 20, 000 Watch for any signs and symptoms of bleeding SKIN: Pressure ulcer prevention per facility protocol Specialty mattress as needed ORTHO/REHAB Continue PT/OT PRN: MEDICATIONS Tylenol 650 mg po every 4 hrs for fever zofran 4 mg IV every 6 hrs for n/v Hydralazine 5 mg IV every 4 hrs systolic pressure > 160 bowel regiment: lactulose 20 gm PO BID PRN constipation Supportive measures: Continue GI and DVT prophylaxis Disposition: Possible discharge home tomorrow All questions answered time spent: > 35 min DINH VEGA MD Sep 01, 2024 10:08
[2024-09-01 11:42] VITALS: BP 137/76; PULSE 91; RESP 16; TEMP 98.3
[2024-09-01] MEDS ORDERED: CEFD300C3 PO (12:17)
[2024-09-01] MEDS ORDERED: LACT10PA5 PO (12:17)
--- NOTE | 2024-09-01 12:22 | DS ---
Discharge Summary Hospital Course Summary: Ms. Saeed is a 74-year-old female with history of cerebral palsy, bed ridden with limb contractures, and hypertension was brought to [facility] for evaluation of diffuse abdominal pain on August 24, 2024. Patient is nonverbal and is unable to furnish much history other than nodding at times. The patient had a similar presentation in the past with constipation with no bowel movement for many days. No vomiting hematemesis or melena, fever chills or rigors, nor chest pain pressure. CT of the abdomen and pelvis was done, prominent fecal material in the rectum concerning for fecal impaction, distended, fluid-filled loops of small bowel and colon which may represent enterocolitis versus early obstruction. 08/25/24 patient is seen and examined patient appears chronically ill. No family members at bedside. She is currently NPO receiving IV hydration we continue with bowel regiment. primary nurse report 2 large BM overnight. no moaning: nonverbal KUB is pending. 08/26/24 patient was seen by nurse practitioner and physician during rounding in room 410. CT abdomen/pelvis showed fecal material rectum concerning for fecal impaction. Enterocolitis versus early obstruction. UA was positive for leukocytosis. Urine culture pending. Patient continues to be on a clear liquid diet and already had three bowel movements in the past 24 hours. As per surgery no intervention at this moment. Allow diet and advance as tolerate. Patient re ceive two doses of 40 mEq of potassium for potassium 3.3. We will continue to monitor patient in the meantime. A.m. labs. 08/27/24 patient was seen by nurse practitioner physician during rounding in room 410. Repeated KUB showed severe constipation. At this moment we will consult GI for further assistance since any lactulose/MiraLax or enemas did not work. Patient continues to be on Rocephin for urine positive for E coli we will continue to monitor patient. A.m. labs. 08/28/24 patient was seen by nurse practitioner and physician during rounding in room 410. Patient was evaluated by the GI and at this moment they recommend Dev PINA. RN got her orders and we will start patient on regimen. We will wait for further evaluation/recommendations of GI. [employer] spoke with GI ROLLS BAKER Narcisa gallegos 08/28/2024 at 11:56 a.m.. We will continue to monitor patient in the meantime a.m. labs 08/29/24 patient was seen by nurse practitioner and physician during rounding in room 410. As per GI patient to continue GoLYTELY. Over the night patient was not able to drink the fluids NG tube was placed and the fluids will be given through the NG tube. We will continue to monitor patient in the meantime. KUB in the morning. A.m. labs. 08/30 patient is seen and examined at bedside, case discussed with the RN, acute events overnight, patient received GoLYTELY yesterday, had a very good bowel movement, started on clear liquid diet, tolerating well, NG tube removed. BP 108/59, afebrile, saturating normal on room air. KUB shows small bowel dilatation, fecal material in the colon. Potassium 3.4, magnesium 1.7, we will replace per electrolyte protocol. Results of urine culture showing E coli sensitive to multiple antibiotics. Continue Rocephin 1 g IV daily. Possible discharge home tomorrow. 08/31 patient remains admitted to the medical floor, comfortably in bed, blood pressure 139/68, afebrile, saturating normal on room air. Hemoglobin stable at 11.7, hematocrit 35.7. Sodium of 132, potassium 4.5, BUN of 20, creatinine 0.3. The patient with a coli UTI, on Rocephin 1 g IV daily. We will request Physical therapy to evaluate the patient. We will discuss discharge plan with case management.Patient looks extremely weak, the pain from discharge to nursing home facility. No family members at bedside. 09/01 patient remains admitted to the medical floor, hemodynamically stable, BP 141/68, afebrile, saturating normal on room air, has been having good bowel movement per discussion with the RN, stable hemoglobin at 11.7, hematocrit 34.8, CMP is unremarkable, we will discuss discharge plan with case management today, possible DC plan today. Patient lives with her niece per my discussion with the RN. Today The patient is hemodynamically stable, at baseline mental status, passing gas, moving bowel, tolerating diet very well, denies nausea, no vomiting, no abdominal pain. PHYSICAL EXAM GENERAL APPEARANCE: The patient is awake, alert, and oriented, in no acute cardiopulmonary distress. NEUROLOGICAL: Cranial nerves II-XII grossly intact. Motor is 5/5 in bilateral upper and lower extremities proximal to distal. No sensory deficits. HEENT: Face is symmetric. Pupils are equal and reactive. Extraocular movements are intact. NECK: Supple. No JVD. No thyromegaly. No submental, submandibular, pre- /postauricular, occipital or supraclavicular lymphadenopathy. CHEST: Normal chest expansion. No Telemetry. LUNGS: Absence of any rales, rhonchi or any wheezing. CARDIOVASCULAR: Regular. S1 and S2 normal. No appreciable rubs, murmurs or gallops. ABDOMEN: Distended and tender. There is no rebound, voluntary guarding, or rigidity. : Deferred. No Khoury. EXTREMITIES: Non-edematous and not cyanotic. No clubbing. Good capillary refill. SKIN: No skin breakdown. Assessment/Plan: Final Diagnosis Acute abdominal pain, POA Severe constipation/fecal impaction POA Distended, Fluid-filled loops of small bowel and colon, enterocolitis vs early obstruction Constipation with fecal impaction, POA Electrolyte derangement (Hyponatremia, hypokalemia, hypochloremia) Acute dehydration Hyperglycemia Prerenal azotemia UTI Chronic problem list: cerebral palsy, nonverbal, arm contractures, and h ypertension Discharge Instructions: The patient to be discharged home today, to return to hospital if condition changes. No family members at bedside during my visit. The patient is awake, following commands understood the information provided. Home Medications: Reported Medications Docusate Sodium (Colace) 100 Mg Capsule, 1 CAP PO DAILY for 30 Days, #60 CAP 0 Refills 08/24/24 Ferrous Sulfate (Ferosul) 325 Mg (65 Mg Iron) Tablet, 325 MG PO DAILY, TAB 08/24/24 Lisinopril (Lisinopril) 5 Mg Tablet, 1 TAB PO DAILY for 30 Days, #30 TAB 0 Refills 08/24/24 Naproxen (Naproxen) 500 Mg Tablet, 1 TAB PO BID for pain for 30 Days, #60 TAB 0 Refills 08/24/24 Omeprazole (Omeprazole) 20 Mg Capsule.dr, 1 CAP PO DAILY for 30 Days, #30 CAP 0 Refills 08/24/24 Hydrochlorothiazide (Hydrochlorothiazide) 12.5 Mg Tablet, 1 TAB PO DAILY for 30 Days, #30 TAB 0 Refills 08/24/24 Discontinued Reported Medications Naproxen (Naproxen) 500 Mg Tablet.dr, 500 MG PO DAILY, TAB 07/21/21 Omeprazole (Omeprazole) 20 Mg Capsule.dr, 20 MG PO DAILY, CAP 07/21/21 Lisinopril/Hydrochlorothiazide (Lisinopril-Hctz 10-12.5 mg Tab) 1 Each Tablet, 1 EACH PO DAILY, TAB 07/21/21 Discontinued Scripts Levofloxacin (Levaquin 750Mg Tabs) 750 Mg Tablet, 750 MG PO DAILY for 7 Days, #7 TAB 0 Refills Prov:NATALIO ROJAS 07/26/21 Time spent arranging discharge: 31-60 minutes DINH VEGA MD Sep 01, 2024 12:22
[2024-09-01 16:42] VITALS: BP 118/70; PULSE 105; RESP 20; TEMP 97.7
--- NOTE | 2024-09-01 18:30 | NUR ---
DISCHARGE PT lying in bed w/ eyes open 0 s/s of distress noted. discharge instructions given to sister Milton George via phone w/ Palma RN as witness, milton verbally acknowledged understanding, IV removed intact w/o complications. EMS arrived and transported PT home via ambulance.
--- NOTE | 2024-09-02 13:48 | NUR ---
Transitional Phone Call Spoke to Ansley George, Niece [phone], states "[patient] is doing good, doing real good." [facility] has the new prescription cefdinir and taking the home medications as instructed; the lactulose packets are not covered by insurance, cost $300, referred to PCP for substitution. [facility] has a follow up appointment with PCP - Dr. Tiki Garcia on 09/08/2024 at 1400; educated to call PCP prior to appointment to get the substitute medication. [facility] would like a hospital bed for patient; referred to PCP and DME. No further questions or concerns at this time.
== END 2024-09-01 18:34 | disposition home or self-care (01) | DRG 389 ==
LOC: EDH 19:49 → EDHIP 21:44 → 4BH 23:07
PROVIDERS: ADMIT Internal Medicine; ATTEND Internal Medicine
DX: K56.609 Unspecified intestinal obstruction, unspecified as to partial versus complete obstruction (principal); E87.1 Hypo-osmolality and hyponatremia; N39.0 Urinary tract infection, site not specified; K56.41 Fecal impaction; K52.9 Noninfective gastroenteritis and colitis, unspecified; G80.9 Cerebral palsy, unspecified; I10 Essential (primary) hypertension; E86.0 Dehydration; E87.6 Hypokalemia; E87.8 Other disorders of electrolyte and fluid balance, not elsewhere classified; R73.9 Hyperglycemia, unspecified; K21.9 Gastro-esophageal reflux disease without esophagitis; Z74.01 Bed confinement status; Z79.899 Other long term (current) drug therapy
CPT/HCPCS: 36415; 74018; 74176; 80048; 80053; 81001; 82550; 82948; 83036; 83690; 83735; 84100; 84443; 85025; 85027; 87086; 87186; 99285; G0378; J0696; J2270; J2470; J3475; J3480; J7030; J7070; J7120